=== PATIENT | female | born 1955 | race Caucasian/White ===

== ENCOUNTER → 2017-04-24 | Outpatient (CLI) | payer MEDICARE, OTHER ==
--- NOTE | 2017-04-25 12:14 | MR ---
EXAMINATION TYPE: MR lumbar spine wo con DATE OF EXAM: 04/24/2017 COMPARISON: 06/09/2011 HISTORY: Cervicalgia, Lumbago TECHNIQUE: T1 and T2 axial and sagittal images of the lumbar spine are submitted. FINDINGS: There is no abnormal signal seen within the visualized spinal cord or paraspinal soft tissu es. At L1-2 there is large vertebral body hemangioma of L2. There is mild central disc bulging with no ca nal stenosis or foraminal encroachment. At L2-3 there is mild degenerative disc disease. There is hypertrophic change of the facets but no ca nal stenosis or foraminal encroachment. At L3-4 there is mild hypertrophic change of the facets. No disc herniation, canal stenosis or forami nal encroachment. At L4-5 there is mild facet arthropathy. No disc herniation or canal stenosis. No foraminal encroachm ent. At L5-S1 there is degenerative disc disease with minimal central disc bulging but no foraminal encroa chment or canal stenosis. Mild facet arthropathy. IMPRESSION: 1. Multilevel mild degenerative disc disease and facet arthropathy with no disc herniation, canal xiao nosis, or foraminal encroachment. 2. Cholelithiasis 3. Heterogeneous marrow signal is nonspecific likely the basis of marrow distribution or osteopenia. Lymphoproliferative disorder or blood dyscrasia less likely. EXAMINATION TYPE: MR cervical spine wo con DATE OF EXAM: 04/24/2017 COMPARISON: 01/25/2014 HISTORY: Cervicalgia, Lumbago TECHNIQUE: T1 sagittal and coronal, T2 sagittal, and gradient echo axial views of the cervical spine are submitted. FINDINGS: The cranial cervical junction is preserved. There is no abnormal signal seen within the sp inal cord or paraspinal soft tissues. At C2-3 there is no disc herniation or canal stenosis. No foraminal encroachment. Mild uncovertebral joint hypertrophy. At C3-4 there is no disc herniation or canal stenosis. No foraminal encroachment. At C4-5 there is mild degenerative disc disease and facet arthropathy. No disc herniation or canal st enosis. No foraminal encroachment. At C5-6 there is mild facet arthropathy and degenerative disc disease. No Canal stenosis, disc hernia tion or foraminal encroachment. At C6-7 there is no disc herniation or canal stenosis. No foraminal encroachment. At C7-T1 there is no disc herniation or canal stenosis. No foraminal encroachment. IMPRESSION: 1. Multilevel mild degenerative disc disease. 2. Abnormal signal involving the rebecca and basilar artery likely related to patient's history of previ ous surgery with clips. Correlate for aneurysm, aneurysm clipping or possible cavernous angioma. Find ing is stable and has been seen on previous exams.
== END | disposition home or self-care (01) ==
LOC: RADMRIMAIN 10:04
PROVIDERS: ATTEND Psychiatry & Neurology Neurology
DX: M51.36 Other intervertebral disc degeneration, lumbar region (principal); M50.321 Other cervical disc degeneration at C4-C5 level; M46.06 Spinal enthesopathy, lumbar region; Z98.890 Other specified postprocedural states; Z88.0 Allergy status to penicillin
CPT/HCPCS: 72141; 72148

== ENCOUNTER 2017-05-06 10:55 | Inpatient (IN) | payer MEDICARE, OTHER ==
[2017-05-06] MEDS ORDERED: MIDAZOLAM 2 MG/2 ML VIAL ONE ×2 (15:32→17:06)
[2017-05-06] MEDS: MIDAZOLAM 2 MG/2 ML VIAL IVP ONE ×3 (15:33→17:15)
[2017-05-06] MEDS ORDERED: LIDOCAINE 2% INJ 20 MG/ML SQ ONE (15:35)
[2017-05-06] MEDS ORDERED: MIDAZOLAM 2 MG/2 ML VIAL IVP ONE ×2 (15:35→17:10)
[2017-05-06] MEDS ORDERED: SODIUM CHLORIDE 0.9% 1,000 ML IV ONE (15:36)
[2017-05-06] MEDS ORDERED: FUROSEMIDE 10 MG/ML 4 ML VIAL ONE ×2 (16:24→16:51)
[2017-05-06] MEDS ORDERED: FUROSEMIDE 10 MG/ML 4 ML VIAL IVP ONE (16:30)
--- NOTE | 2017-05-06 16:46 | CONS ---
DATE OF CONSULTATION: This is a 61-year-old lady who was transferred emergently from the emergency room at [facility], where she presented with chest pain. She has been having chest discomfort from this morning and also had some shortness of breath. There is mild troponin elevation and anterior T-wave inversions and very subtle ST-segment elevation in V2, V3. Due to this, she was advised to undergo emergent angiography. Patient has been explained the risks, benefits and alternative. She is under a lot of stress. She lost her son 2 days ago with an overdose. She has history of cerebral aneurysms and has been stented. Also has history of hypertension and dyslipidemia. Medications are as charted. FAMILY HISTORY: Negative for premature coronary artery disease. SOCIAL HISTORY: Significant for smoking. Denies drug abuse or ETOH abuse. REVIEW OF SYSTEMS: HEENT: Unremarkable. CARDIAC: As described above. RESPIRATORY: Negative. GI: Negative. GENITOURINARY: Negative. ALLERGY/IMMUNOLOGY: Negative. SKIN: Negative. MUSCULOSKELETAL: Negative. ENDOCRINE: Negative. HEMATOLOGICAL: Negative. DERMATOLOGICAL: Negative. CONSTITUTIONAL: Negative. Rest of the system review is not relevant. On exam, she is comfortable at rest. Vital signs are stable. There is no jugular venous distention. Chest exam reveals good air entry bilaterally. Heart exam reveals first and second heart sounds. No gallop. Abdomen is soft. Examination of extremities did not reveal edema. Peripheral pulses are felt. Her creatinine is normal. Hemoglobin is normal. ASSESSMENT: Acute coronary syndrome. PLAN: Patient will undergo emergent cardiac catheterization.
--- NOTE | 2017-05-06 16:50 | CC ---
DATE OF SERVICE: INDICATION: Anterior wall myocardial infarction. PROCEDURE: After obtaining informed consent, left heart catheterization and coronary angiogram were performed via the right femoral artery using standard Myranda catheters. Patient tolerated the procedure well without any obvious immediate complications. A femoral angiogram was performed at the end of the procedure. Patient underwent moderate conscious sedation. Total sedation time was 15 minutes. FINDINGS HEMODYNAMICS: Left ventricular end-diastolic pressure was 72 mm. There is no significant gradient across the aortic valve. LEFT VENTRICULOGRAM: Left ventriculogram was not performed. ANGIOGRAPHIC DATA Left main coronary artery. Left main coronary artery is a normal-sized vessel and is free of stenosis. It divides into left anterior descending coronary artery and circumflex coronary artery. LAD has a [id number] lesion in the proximal part. In some views it appears more significant in others. Diagonal branch is free of significant stenosis. Circumflex coronary artery and its branches are free of significant disease. Right coronary artery is a large codominant system that shows mild atherosclerotic plaque in its mid portion. CONCLUSIONS: 1. Significant stenosis in the proximal left anterior descending artery. 2. Mild disease involving right coronary artery. PLAN: I am going to have Dr. Chavira, the on-call librarian school, review the angiographic data. If he thinks that the LAD lesion is significant, we will proceed with angioplasty. If not, I am going to obtain a D-dimer and if necessary a CT scan to rule out pulmonary embolism.
[2017-05-06] MEDS ORDERED: BIVALIRUDIN 250 MG in SODIUM CHLORIDE 0.9% 50 ML IV ONE (16:53)
[2017-05-06] MEDS ORDERED: FUROSEMIDE 10 MG/ML 4 ML VIAL IV ONE ×2 (16:53→20:00)
[2017-05-06] MEDS ORDERED: BIVALIRUDIN BOLUS 250 MG/50 ML IV ONE (16:53)
[2017-05-06] MEDS ORDERED: NITROGLYCERIN 1000MCG/10ML SYRINGE INTRACORON ONE (16:54)
[2017-05-06] MEDS ORDERED: ETOMIDATE 2 MG/ML 10 ML VIAL ONE (17:05)
[2017-05-06] MEDS ORDERED: ROCURONIUM BROMIDE 10 MG/ML 10 ML VIAL IV ONE (17:05)
[2017-05-06] MEDS ORDERED: SUCCINYLCHOLINE CHLORIDE 100 MG/5 ML SYR IV ONE (17:05)
[2017-05-06] MEDS ORDERED: CLOPIDOGREL 75 MG TAB ONE (17:25)
[2017-05-06] MEDS ORDERED: NITROGLYCERIN-D5W PMX 50 MG in DEXTROSE/WATER 1 250ML.BAG IV ONE (17:35)
[2017-05-06] MEDS ORDERED: ATROPINE SULFATE 0.1 MG/ML 10ML SYRINGE IV PRN (17:38)
[2017-05-06] MEDS ORDERED: MAG HYDROX/AL HYDROX/SIMETH 30 ML CUP PO PRN (17:38)
[2017-05-06] MEDS ORDERED: NITROGLYCERIN SL TABS 0.4 MG TAB SUBLINGUAL PRN (17:38)
[2017-05-06] MEDS ORDERED: RX INFO: IV CONTRAST WAS GIVEN 1 EACH MISC MISCELLANE PRN (17:38)
[2017-05-06 17:39] LABS: ABG HCO3 20 mmol/L (21-25); ABG Oxygen Saturation 81.4 % (94-97); ABG PCO2 49 mmHg (35-45); ABG PH 7.22 (7.35-7.45); ABG PO2 49 mmHg (83-108)
[2017-05-06] MEDS ORDERED: CLOPIDOGREL 75 MG TAB PO ONE (17:42)
[2017-05-06] MEDS ORDERED: IOHEXOL 350 MG/ML 125ML BOTTLE INJ ONE (18:00)
[2017-05-06] MEDS ORDERED: PROPOFOL 50 ML IV ONE (18:07)
[2017-05-06 18:13] LABS: Glucose,Whole Blood 187 mg/dL (75-99)
[2017-05-06] MEDS ORDERED: NALOXONE 0.4 MG/ML 1 ML VIAL IV PRN (18:27)
--- NOTE | 2017-05-06 19:00 | XR ---
EXAMINATION TYPE: XR chest 1V portable DATE OF EXAM: 05/06/2017 COMPARISON: NONE HISTORY: Tube placement TECHNIQUE: Single frontal view of the chest is obtained. FINDINGS: Endotracheal tube is low and 1 cm from the tresa. There is extensive pulmonary edema. The re is a nasogastric tube that appears in good position. There are chest leads. There is a right pleur al effusion. IMPRESSION: Severe pulmonary edema. Endotracheal tube is too low and should be pulled back 3 cm. Rig ht pleural effusion.
[2017-05-06] MEDS: SODIUM CHLORIDE 0.9% 1,000 ML IV SCH (19:01)
[2017-05-06] MEDS: PANTOPRAZOLE 40 MG/10 ML VIAL IVP SCH (19:03)
[2017-05-06] MEDS: FUROSEMIDE 10 MG/ML 4 ML VIAL IV SCH (19:06)
[2017-05-06 20:35] LABS: ABG Base Excess -4.2 mmol/L; ABG HCO3 21 mmol/L (21-25); ABG PCO2 42 mmHg (35-45); ABG PH 7.32 (7.35-7.45); ABG PO2 82 mmHg (83-108); ABG TCO2 22 mmol/L (19-24)
[2017-05-06] MEDS ORDERED: NOREPINEPHRIN 4 MG-0.9% NS PMX 4 MG/250 ML ML IV SCH (21:30)
[2017-05-06] MEDS: PROPOFOL 500 MG in EMPTY BAG 1 BAG IV SCH (21:51)
[2017-05-06] MEDS: METOPROLOL TARTRATE 25 MG TAB PO SCH (21:54)
[2017-05-06] MEDS: ATORVASTATIN 80 MG TAB PO SCH (21:54)
[2017-05-06 22:29] LABS: Appearance,Urine Clear (Clear); Bilirubin,Urine Negative (Negative); Glucose,Urine (UA) Negative (Negative); Ketones,Urine Negative (Negative); Leukocyte Esterase,Urine Negative (Negative); Nitrite,Urine Negative (Negative); Particle Count 448; Protein,Urine Negative (Negative); RBC,Urine 13 /hpf (0-5); Specific Gravity,Urine 1.007 (1.001-1.035); UA Billing (MACRO vs. MICRO) MICRO; Urobilinogen,Urine <2.0 mg/dL (<2.0); WBC,Urine <1 /hpf (0-5)
[2017-05-06] MEDS: CHLORHEXIDINE GLUCONATE 15 ML CUP MUCOUS MEM SCH (23:29)
[2017-05-06 23:35] LABS: Anion Gap 14 mmol/L; Blood Urea Nitrogen 10 mg/dL (7-17); Calcium 8.2 mg/dL (8.4-10.2); Carbon Dioxide 18 mmol/L (22-30); Chloride 110 mmol/L (98-107); Glucose 116 mg/dL (74-99); Non-African American GFR(MDRD) >60 (>60 ml/min/1.73 sqM); Sodium 142 mmol/L (137-145)
[2017-05-07] MEDS: HEPARIN SODIUM,PORCINE 5,000 UNIT/ML 1 ML VIAL SQ SCH ×3 (00:51→16:43)
[2017-05-07] MEDS: PROPOFOL 500 MG in EMPTY BAG 1 BAG IV SCH ×5 (02:36→22:56)
[2017-05-07 03:51] LABS: CH 31.7; CHCM 32.6; HCT 41.8 % (34.0-46.0); HDW 2.14; MCH 32.7 pg (25.0-35.0); MCHC 33.5 g/dL (31.0-37.0); MCV 97.7 fL (80.0-100.0); Mean Platelet Volume 8.2; RBC 4.28 m/uL (3.80-5.40); RDW 14.2 % (11.5-15.5); WBC (Perox) 27.43
[2017-05-07 04:03] LABS: WBC 27.7 k/uL (3.8-10.6)
[2017-05-07 04:06] LABS: ALT 55 U/L (9-52); AST 43 U/L (14-36); Alkaline Phosphatase 73 U/L (38-126); Anion Gap 11 mmol/L; Blood Urea Nitrogen 10 mg/dL (7-17); Calcium 7.8 mg/dL (8.4-10.2); Carbon Dioxide 20 mmol/L (22-30); Chloride 111 mmol/L (98-107); Glucose 98 mg/dL (74-99); Magnesium 1.5 mg/dL (1.6-2.3); Non-African American GFR(MDRD) >60 (>60 ml/min/1.73 sqM); Phosphorous 4.1 mg/dL (2.5-4.5); Potassium 3.7 mmol/L (3.5-5.1); Sodium 142 mmol/L (137-145); Total Bilirubin 0.7 mg/dL (0.2-1.3); Total Protein 5.3 g/dL (6.3-8.2)
[2017-05-07 04:27] LABS: Add Differential Manual Differential
[2017-05-07 04:28] LABS: Manual Review Performed; Nucleated Red Blood Cells 0 /100 WBC (0-0); Total Cells Counted 100
[2017-05-07] MEDS ORDERED: Potassium Replacement Protocol 1 EACH MISC MISCELLANE PRN (04:28)
[2017-05-07] MEDS ORDERED: Magnesium Replacement Protocol 1 EACH MISC MISCELLANE PRN (04:30)
[2017-05-07] MEDS ORDERED: POTASSIUM CHLORIDE ORAL LIQUID 40 MEQ/30 ML CUP NG-TUBE SCH (05:00)
[2017-05-07] MEDS: MAGNESIUM SULFATE-D5W PMX 1 GM in DEXTROSE/WATER 1 100ML.BAG IVPB SCH ×2 (05:00→06:48)
[2017-05-07] MEDS ORDERED: SODIUM CHLORIDE 0.9% 500 ML IV ONE (06:32)
--- NOTE | 2017-05-07 07:06 | XR ---
EXAMINATION TYPE: XR chest 1V portable DATE OF EXAM: 05/07/2017 HISTORY: Tube placement. REFERENCE: Previous study dated 05/06/2017. FINDINGS: Endotracheal tube remains low with its tip only 1.6 cm from the tresa. An NG tube is prese nt and its tip crosses the hemidiaphragm but is not visualized. There is been marked improvement in the appearance of the chest. Some residual airspace disease persi sts. The heart is not enlarged. No definite pleural fluid is seen. IMPRESSION: 1. LOW-LYING ET TUBE. 2. IMPROVING CHANGES OF HEART FAILURE.
[2017-05-07] MEDS: PIPERACILLIN-TAZOBACTAM 3.375 GM in DEXTROSE/WATER 1 50ML.BAG IVPB SCH ×2 (08:36→16:44)
[2017-05-07] MEDS: PANTOPRAZOLE 40 MG/10 ML VIAL IVP SCH (08:43)
[2017-05-07] MEDS: CHLORHEXIDINE GLUCONATE 15 ML CUP MUCOUS MEM SCH ×2 (08:43→20:39)
[2017-05-07] MEDS: FUROSEMIDE 10 MG/ML 4 ML VIAL IV SCH ×2 (08:44→20:39)
[2017-05-07] MEDS: ASPIRIN 81 MG CHEW PO SCH (08:44)
[2017-05-07] MEDS: SODIUM CHLORIDE 0.9% 1,000 ML IV SCH ×2 (08:44→20:39)
[2017-05-07] MEDS: CLOPIDOGREL 75 MG TAB PO SCH (08:44)
[2017-05-07] MEDS: METOPROLOL TARTRATE 25 MG TAB PO SCH ×2 (08:44→20:39)
[2017-05-07] MEDS: SPIRONOLACTONE 25 MG TAB PO SCH (08:44)
[2017-05-07] MEDS ORDERED: LORazepam 2 MG/ML SYRINGE IV PRN (09:10)
[2017-05-07] MEDS ORDERED: CISATRACURIUM 2 MG/ML 5 ML VIAL IV ONE (09:11)
--- NOTE | 2017-05-07 10:32 | XR ---
EXAMINATION TYPE: XR chest 1V portable DATE OF EXAM: 05/07/2017 CLINICAL HISTORY: Difficulty breathing progress study. Opelika Tyrone placement. TECHNIQUE: Single AP portable upright view of the chest is obtained. COMPARISON: Chest x-ray from earlier today. FINDINGS: There is new right internal jugular [place]-Tyrone catheter with tip likely extending into righ t pulmonary artery felt satisfactory in position. An endotracheal tube and orogastric tube are stable in position. Cardiac silhouette size is stable an d within normal limits. Reticular interstitial changes bilaterally may reflect mild edema. No large p leural effusion or pneumothorax is seen bilaterally. Osseous structures are demineralized. IMPRESSION: 1. New [place]-Tyrone catheter felt satisfactory in position. 2. Stable mild interstitial edema.
[2017-05-07 10:48] LABS: ABG PCO2 35 mmHg (35-45); ABG PH 7.44 (7.35-7.45)
[2017-05-07 10:49] LABS: ABG Base Excess -0.9 mmol/L; ABG HCO3 23 mmol/L (21-25); ABG PO2 319 mmHg (83-108); ABG TCO2 24 mmol/L (19-24)
[2017-05-07] MEDS ORDERED: SODIUM CHLORIDE 0.9% 1,000 ML IV SCH (11:00)
--- NOTE | 2017-05-07 11:07 | P.HPIM ---
History of Present Illness H&P Date: 05/07/17 Chief Complaint: Chest pain This is a 61-year-old female, patient of Dr. Davalos. She has a known past medical history of cerebral aneurysm with stent placement, hypertension, hyperlipidemia and nicotine dependence. Patient initially presented to the emergency room at [facility] with complaints of chest pain. Please note that the information has been taken from patient's chart. She is currently intubated and sedated in the ICU. Per cardiology note patient presented with chest pain and shortness of breath. There is mild elevation in her troponin and evidence of EKG changes. The reports anterior T-wave inversions and subtle ST segment elevation in V2 and V3. Therefore she was transferred to [facility] to undergo heart catheterization with stent placement. Heart catheterization was completed yesterday with evidence of stenosis in the proximal LAD patient underwent stent placement to this area. During that time patient developed pulmonary edema required briefly on IV Lasix and intubated and is currently in the ICU. Dr. Carranza is following for critical care management. She is requiring vasopressors. She is currently on Levophed at 10 mics and diprovan at 50 mics. There are concerns about possible takotsubo syndrome. Patient lost her son about 2 days ago due to drug overdose. scheduled on Wednesday. Review of Systems Unable to obtain review of systems due to patient being intubated and sedated Past Medical History Past Medical History: Hyperlipidemia Additional Past Medical History / Comment(s): Hypertension, cerebral aneurysm with stent, nicotine dependence Medications and Allergies Allergies Allergy/AdvReac Type Severity Reaction Status Date / Time No Known Allergies Allergy Verified 05/06/17 15:35 Physical Exam Vitals: Vital Signs Temp Pulse Pulse Resp BP BP Pulse Ox 05/07/17 08:00 98.4 F 88 17 113/47 100 05/07/17 07:00 91 18 119/52 100 05/07/17 06:00 97 20 124/50 100 05/07/17 05:00 95 23 111/48 100 05/07/17 04:00 87 18 108/49 100 05/07/17 03:00 90 21 100/52 100 05/07/17 02:00 86 24 81/55 99 05/07/17 01:00 87 22 98/53 100 05/07/17 00:00 93 25 H 82/54 100 05/06/17 23:05 96 24 91/55 99 05/06/17 23:00 97 24 91/55 98 05/06/17 22:20 106 H 31 H 110/64 97 05/06/17 22:10 100 23 110/57 98 05/06/17 22:00 100 24 100/51 98 05/06/17 21:50 101 H 25 H 89/55 98 05/06/17 21:40 110 H 32 H 106/74 98 05/06/17 21:30 104 H 24 83/45 97 05/06/17 21:23 98.9 F 97/56 05/06/17 21:20 105 H 27 H 92/66 96 05/06/17 21:10 108 H 28 H 92/66 97 05/06/17 21:00 107 H 23 84/57 97 05/06/17 20:50 105 H 22 82/55 97 05/06/17 20:40 108 H 24 82/55 95 05/06/17 20:30 112 H 30 H 94/61 94 L 05/06/17 20:23 99.1 F 100 26 H 91/55 05/06/17 20:20 109 H 24 107/60 94 L 05/06/17 20:10 109 H 25 H 116/61 94 L 05/06/17 20:00 99.6 F 110 H 28 H 111/66 92 L 05/06/17 19:50 118 H 30 H 106/67 90 L 05/06/17 19:40 113 H 25 H 83/59 92 L 05/06/17 19:30 110 H 27 H 71/52 91 L 05/06/17 19:23 99.6 F 110 H 25 H 05/06/17 19:20 109 H 22 76/47 88 L 05/06/17 19:10 114 H 24 76/47 83 L 05/06/17 19:00 112 H 21 80/53 85 L 05/06/17 18:50 114 H 21 119/72 84 L 05/06/17 18:40 113 H 21 119/72 88 L 05/06/17 18:30 119 H 27 H 151/67 89 L 05/06/17 18:27 22 05/06/17 18:20 124 H 13 178/79 88 L 05/06/17 18:10 130 H 22 178/79 91 L 05/06/17 18:03 98.3 F 124 H Intake and Output 05/06/17 05/07/17 05/07/17 22:59 06:59 14:59 Intake Total 864.866 630.312 675.0 Output Total 2014 770 595 Balance -1150.134 -139.688 80.0 Intake: IV 863.79 500 650 Sodium Chloride 0.9% 1, 195 500 650 000 ml @ 75 mls/hr IV . [id number] JACKIE Rx#:[id number] Intake, IV Titration 1.076 130.312 25.0 Amount Norepinephrin 4 mg-0.9% 32.000 Ns Pmx 4 mg In 250 ml @ Titrate IV .Q0M JACKIE Rx#: [id number] Piperacillin-Tazobactam 3 25.0 .375 gm In Dextrose/Water 1 50ml.bag @ 12.5 mls/hr IVPB Q8HR JACKIE Rx#: [id number] Propofol 500 mg In Empty 1.076 98.312 Bag 1 bag @ Titrate IV . Q0M JACKIE Rx#:[id number] Output: Gastric Drainage 150 Urine 1865 770 170 Oral Regurgitation 425 Other: Weight 47.837 kg 50.2 kg Head normocephalic Neck supple Lungs clear to auscultation bilaterally no wheezing or crackles Heart regular rate and rhythm S1-S2, no rub or gallop Abdomen is soft nontender nondistended positive bowel sounds no hepatosplenomegaly Extremities no edema Neuro patient is intubated and sedated Results CBC & Chem 7: 05/07/17 03:38 05/07/17 03:38 Labs: Abnormal Lab Results - Last 24 Hours (Table) 05/06/17 05/06/17 05/06/17 Range/Units 15:50 17:32 18:10 WBC (3.8-10.6) k/uL Neutrophils # (Manual) (1.3-7.7) k/uL Monocytes # (Manual) (0-1.0) k/uL D-Dimer 0.65 H (<0.60) mg/L FEU ABG pH 7.22 L (7.35-7.45) ABG pCO2 49 H (35-45) mmHg ABG pO2 49 L (83-108) mmHg ABG HCO3 20 L (21-25) mmol/L ABG O2 Saturation 81.4 L (94-97) % Chloride (98-107) mmol/L Carbon Dioxide (22-30) mmol/L Glucose (74-99) mg/dL POC Glucose (mg/dL) 187 H (75-99) mg/dL Calcium (8.4-10.2) mg/dL Magnesium (1.6-2.3) mg/dL AST (14-36) U/L ALT (9-52) U/L Troponin I (0.000-0.034) ng/mL Total Protein (6.3-8.2) g/dL Albumin (3.5-5.0) g/dL Urine Blood (Negative) Urine RBC (0-5) /hpf Hyaline Casts (0-2) /lpf 05/06/17 05/06/17 05/06/17 Range/Units 18:59 20:34 22:15 WBC (3.8-10.6) k/uL Neutrophils # (Manual) (1.3-7.7) k/uL Monocytes # (Manual) (0-1.0) k/uL D-Dimer (<0.60) mg/L FEU ABG pH 7.32 L (7.35-7.45) ABG pCO2 (35-45) mmHg ABG pO2 82 L (83-108) mmHg ABG HCO3 (21-25) mmol/L ABG O2 Saturation (94-97) % Chloride (98-107) mmol/L Carbon Dioxide (22-30) mmol/L Glucose (74-99) mg/dL POC Glucose (mg/dL) (75-99) mg/dL Calcium (8.4-10.2) mg/dL Magnesium (1.6-2.3) mg/dL AST (14-36) U/L ALT (9-52) U/L Troponin I 0.303 H* (0.000-0.034) ng/mL Total Protein (6.3-8.2) g/dL Albumin (3.5-5.0) g/dL Urine Blood Small H (Negative) Urine RBC 13 H (0-5) /hpf Hyaline Casts 6 H (0-2) /lpf 05/06/17 05/07/17 05/07/17 Range/Units 23:13 01:04 03:38 WBC (3.8-10.6) k/uL Neutrophils # (Manual) (1.3-7.7) k/uL Monocytes # (Manual) (0-1.0) k/uL D-Dimer (<0.60) mg/L FEU ABG pH (7.35-7.45) ABG pCO2 (35-45) mmHg ABG pO2 (83-108) mmHg ABG HCO3 (21-25) mmol/L ABG O2 Saturation (94-97) % Chloride 110 H 111 H (98-107) mmol/L Carbon Dioxide 18 L 20 L (22-30) mmol/L Glucose 116 H (74-99) mg/dL POC Glucose (mg/dL) (75-99) mg/dL Calcium 8.2 L 7.8 L (8.4-10.2) mg/dL Magnesium 1.5 L (1.6-2.3) mg/dL AST 43 H (14-36) U/L ALT 55 H (9-52) U/L Troponin I 0.527 H* (0.000-0.034) ng/mL Total Protein 5.3 L (6.3-8.2) g/dL Albumin 3.0 L (3.5-5.0) g/dL Urine Blood (Negative) Urine RBC (0-5) /hpf Hyaline Casts (0-2) /lpf 05/07/17 05/07/17 05/07/17 Range/Units 03:38 06:23 10:40 WBC 27.7 H* (3.8-10.6) k/uL Neutrophils # (Manual) 21.3 H (1.3-7.7) k/uL Monocytes # (Manual) 1.9 H (0-1.0) k/uL D-Dimer (<0.60) mg/L FEU ABG pH (7.35-7.45) ABG pCO2 (35-45) mmHg ABG pO2 319 H (83-108) mmHg ABG HCO3 (21-25) mmol/L ABG O2 Saturation 100.0 H (94-97) % Chloride (98-107) mmol/L Carbon Dioxide (22-30) mmol/L Glucose (74-99) mg/dL POC Glucose (mg/dL) (75-99) mg/dL Calcium (8.4-10.2) mg/dL Magnesium (1.6-2.3) mg/dL AST (14-36) U/L ALT (9-52) U/L Troponin I 0.322 H* (0.000-0.034) ng/mL Total Protein (6.3-8.2) g/dL Albumin (3.5-5.0) g/dL Urine Blood (Negative) Urine RBC (0-5) /hpf Hyaline Casts (0-2) /lpf Microbiology - Last 24 Hours (Table) 05/06/17 18:30 Gram Stain - Preliminary Sputum Sputum Culture - Preliminary Assessment and Plan Plan: 1. Chest pain with possible acute ST elevated myocardial infarction or Takotsubo syndrome: Patient underwent heart catheterization requiring stent to the LAD. Continue Plavix, aspirin, Lipitor, metoprolol. Cardiology following closely 2. Acute respiratory failure secondary to pulmonary edema requiring mechanical intubation: Pulmonary service following 3. Acute pulmonary edema: Chest x-rays are showing improvement after receiving IV Lasix. Continue to monitor. Currently on IV Lasix 40 every 12 hours 4. Hypomagnesemia patient is receiving magnesium supplement 5. Leukocytosis we'll monitor. Patient is currently on IV Zosyn 6. Essential hypertension 7. Nicotine dependence 8. Hyperlipidemia 9. History of cerebral aneurysm with stent placement 10. Hypotension currently requiring 10 mics of Levophed DVT prophylaxis subcu heparin Time with Patient: Greater than 30 (Greater than 50% of the total time spent in counseling and coordination of care.I performed an examination of the patient and discussed their management with the physician Aids Social Worker. I have reviewed the Physician Aids Social Worker's notes and agree with the documented findings and plan of care)
--- NOTE | 2017-05-07 11:32 | ECHOF ---
Referral Reason:mi MEASUREMENTS -------- HEIGHT: 165.1 cm WEIGHT: 47.6 kg BP: 124/50 IVSd: 1.0 cm (0.6 - 1.1) LVIDd: 4.3 cm (3.9 - 5.3) LVPWd: 1.2 cm (0.6 - 1.1) IVSs: 1.3 cm LVIDs: 2.9 cm LVPWs: 1.3 cm LA Diam: 3.4 cm (2.7 - 3.8) MV EXCURSION: 13.572 mm (> 18.000) MV EF SLOPE: 51 mm/s (70 - 150) EPSS: 1.1 cm MV E Donny: 1.05 m/s MV DecT: 264 ms MV A Donny: 1.16 m/s MV E/A Ratio: 0.91 RAP: 5.00 mmHg RVSP: 25.06 mmHg FINDINGS -------- Sinus rhythm. This was a technically adequate study. Left ventricular wall thickness is normal. Overall left ventricular systolic function is severely impaired with, an EF < 20%. Mid anterior LV wall motion is akinetic. Apical anterior LV wall motion is akinetic. Apical inferior LV wall motion is akinetic. The right ventricle is normal in size. The left atrial size is normal. The right atrial size is normal. There is mild aortic valve sclerosis. There is no evidence of aortic regurgitation. Mild mitral annular calcification present. Mild mitral regurgitation is present. Mild tricuspid regurgitation present. There is no evidence of pulmonary hypertension. The right ventricular systolic pressure, as measured by Doppler, is 25.06mmHg. There is no pulmonic regurgitation present. The aortic root size is normal. There is no pericardial effusion. CONCLUSIONS -------- 1. Left ventricular wall thickness is normal. 2. There is no evidence of pulmonary hypertension. 3. The right ventricular systolic pressure, as measured by Doppler, is 25.06mmHg. 4. The aortic root size is normal. 5. Overall left ventricular systolic function is severely impaired with, an EF < 20%. 6. Mid anterior LV wall motion is akinetic. 7. Apical anterior LV wall motion is akinetic. 8. Apical inferior LV wall motion is akinetic. 9. There is mild aortic valve sclerosis. 10. Mild mitral annular calcification present. 11. Mild mitral regurgitation is present. 12. Mild tricuspid regurgitation present. SECOND FLOOR OPERATOR: Brooklynn Celaya RDCS
[2017-05-07 12:04] LABS: Glucose,Whole Blood 118 mg/dL (75-99)
--- NOTE | 2017-05-07 12:06 | PN ---
Amy is a 61-year-old lady who was admitted to hospital yesterday with chest pain. EKG changes and initially we thought she was having an acute myocardial infarction, took her for emergent cardiac catheterization. She underwent cardiac catheterization and angioplasty of proximal LAD. Prior to angioplasty she developed respiratory distress and had to be intubated. Her troponin only went up to 0.6 so she did not quite behave like an acute ST segment elevation NE. However, her echocardiogram shows severe LV systolic dysfunction and the wall motion abnormality involves the apex. The extensive wall motion abnormality with mild elevation in troponin are consistent with Takotsubo syndrome, but it is also possible she had plaque rupture and then developed LV dysfunction and it is going to improve. This morning she is awake, still intubated. Her white cell count is elevated, 0.3 is her troponin. Labs show a creatinine of 0.7. On exam, comfortable at rest. Vital signs are stable. Chest exam reveals diminished air entry at the bases. Heart exam reveals first and second heart sounds, a systolic murmur in the left lower sternal border. Abdomen is soft. Exam of the extremities did not reveal edema. Peripheral pulses are felt. ASSESSMENT: 1. Acute pulmonary edema. 2. Cardiomyopathy with severe left ventricular dysfunction secondary to either a non-ST segment elevation myocardial infarction or due to Takotsubo syndrome. 3. Coronary artery disease, status post angioplasty. PLAN: Will continue with the supportive care including aspirin, Lipitor, Plavix, IV Lasix 40 mg q.12. Continue the metoprolol at 25 b.i.d. I hope that we can extubate her soon. In the long run, I anticipate her to have good improvement in her LV function.
[2017-05-07] MEDS: NOREPINEPHRIN 16 MG-0.9%NS PMX 16 MG/250 ML ML IV SCH (12:31)
[2017-05-07 12:37] LABS: ABG Base Excess -1.2 mmol/L; ABG HCO3 22 mmol/L (21-25); ABG PCO2 28 mmHg (35-45); ABG PO2 53 mmHg (83-108); ABG TCO2 23 mmol/L (19-24)
[2017-05-07] MEDS: POTASSIUM CHLORIDE ORAL LIQUID 40 MEQ/30 ML CUP NG-TUBE SCH ×2 (13:47→15:11)
[2017-05-07] MEDS: LORazepam 2 MG/ML SYRINGE IV PRN ×2 (14:56→18:35)
--- NOTE | 2017-05-07 14:57 | CDI ---
In responding to this query, please exercise your independent professional judgment. The [facility] Coding Staff and Clinical Documentation Specialists appreciate your assistance in clarifying documentation, maintaining compliance with coding guidelines, accurately documenting patients condition and capturing severity of illness. The fact that a question is asked does not imply that any particular answer is desired or expected. Communication forms are a method of clarifying documentation and are not made part of the Legal Health Record. Thank you in advance for your clarification. Last Revision, January 2016 [facility] [address] [place] [address] Documentation Clarification Form Date: 05/07/2017 2:45:00 PM Updated 05/10/2017 From: Lindsay Mariano, CCS, CCDS Admit Date: 05/06/2017 3:41:00 PM Patient Name: Amy Thomas Visit Number: [id number] Discharge Date: Dr. Pamela Mcfadden: Transfer from [facility] to [facility] to undergo heart catheterization with stent placement. Heart catheterization was completed yesterday with evidence of stenosis in the proximal LAD patient underwent stent placement to this area. During that time patient developed pulmonary edema required briefly to be on IV Lasix and intubated and is currently in the ICU, intubated for acute respiratory failure. She is requiring vasopressors on Levophed. Patient history/risk factors: Hypertension, Cerebral aneurysm w/stent, nicotine dependence. Clinical Indicators: Admitted with possible STEMI or Takotsubo Syndrome ( patient's son recently from drug overdose. Vitals: P 124, R 22, BP 178/79 - 76/47, PO 91 mechanical vent. Treatment: as above. IV Mag Sulfate, IV fluid boluses, IV Ativan, IV Nimbex, IV Norepinephrine Consults: Cardiology, Pulmonary/Critical Care In your professional opinion, can you please specify the type of shock if known ? Cardiogenic Shock o Cause Hypovolemic Shock o Cause Other, please specify Unable to determine Please document in your progress notes and discharge summary in order to capture severity of illness and risk of mortality. Include clinical findings that support your diagnosis. FYI: Press F11 to launch patient chart. Place X here if this finding has no clinical significance, is not applicable or if you are not able to provide any additional documentation. Thank You. JOSE
--- NOTE | 2017-05-07 15:22 | PTCA ---
DATE OF SERVICE: Mrs. Thomas is a 61-year-old female with known history of chronic tobacco use, history of cerebrovascular accident, history of peripheral vascular disease, and hypertension as well as hyperlipidemia, who presented to [facility] with symptoms of chest discomfort. She had EKG changes with T-wave inversion on the lateral leads with ST segment changes with minimal troponin elevation. She underwent cardiac catheterization by Dr. Preciado, was found to have a LUCINDA-3 flow in the LAD with a lesion in the proximal LAD at the bifurcation of diagonal branch of about 70%. Because of the location of the lesion and the appearance, recommendation made regarding fraction flow reserve measurement and if needed, angioplasty and stenting. Of note, that prior to the start of the intervention, patient was becoming more dyspneic with hypoxemia. She received IV diuretics and her oxygen flow was increased. PROCEDURE: A 6 [place] FR4 guiding catheter introduced into the system after cannulating the left main. A Doppler flow wire was introduced into the LAD. The IFR was measured at 0.7. At that point, the patient was becoming more short of breath and hypoxic, decision was made to electively intubate her which was done by the Anesthesia Department. Following that, a 3.0 x 15 mm Xience Alpine stent was deployed, post dilated at 14 atmospheres. After the last inflation, after appropriate wait, the balloon and the guidewire were withdrawn back into the guiding catheter. Images were obtained and repeated. Those images reveal stable successful stenting. At that point, the guiding catheter, the balloon and the guidewire were removed. The sheath was removed. Hemostasis was obtained with appropriate Angio-Seal. There were no immediate complication. Patient is returned to her room. Her blood pressure and heart rate were stable. She was intubated. She was diuresing well and she was in sinus mechanism. She received Angiomax per protocol as well as oral loading dose of clopidogrel. RESULT: Successful stenting of the proximal left anterior descending that was a hemodynamically significant lesion was in an IFR 0.70 with reduction in stenosis from 70% to 0%. RECOMMENDATION: Patient will be continued on aspirin, Plavix, beta blockers, and statins. Echocardiogram with Doppler will be obtained to evaluate the ventricular systolic function. Those findings and recommendations were discussed with the family and they are in full understanding and agreement. Duration of this procedure is 36 minutes.
--- NOTE | 2017-05-07 15:24 | LTR ---
May 06, 2017 RE: WilliamAmy Dear Dr. Davalos; I had the pleasure to perform coronary angioplasty and stenting on Mrs. Thomas at [facility] on May 06, 2017 and a full copy of the procedure note will be forwarded to you. In brief, she presented with evidence of non-STEMI and congestive heart failure and pulmonary edema requiring mechanical ventilation. I am hopeful that this procedure will stabilize her status and depending on her progress, further recommendation will be made. Thank you again for allowing me to participate in this patient's care. Please feel free to call for any questions. Sincerely yours, JORDAN PETERSON MD
--- NOTE | 2017-05-07 16:56 | CONS ---
DATE OF CONSULTATION: 05/07/2017 Ms. Amy Thomas is a 61-year-old with extensive history of smoking and nicotine use. Patient has been brought into the hospital from [facility] related to acute onset of chest pain on date of admission with increasing shortness of breath. Patient had mildly elevated troponin with ST segment changes. The patient eventually brought into the parking lot laborer at [facility], where she ended up having cardiac cath and angiogram. She had an LAD lesion, where stents have been placed. Patient is being treated. Patient continued to have issues associated with low blood pressure, was very hypoxic, desaturating with frothy sputum coming out and eventually was intubated in the parking lot laborer and admitted to the ICU. Patient chest x-ray initially was consistent with acute pulmonary edema; however, heart size was normal. The patient responded well with Lasix with some clearing of the x-ray, but the patient not only spiked fever, white cell count went up to 25,000. Patient had very poor urine output overnight; in fact, requiring fluid resuscitation and crystalloid bolus. With that, blood pressure slightly improved. The patient is currently on 50 mcg of the Levophed drip 50 mcg of propofol, 10 mcg of Levophed drip. Does open eyes. Follows simple commands; somewhat anxious, though. Care plan discussed with the patient's son at length and also the cardiovascular services. Past medical history is significant for hypertension, hypertensive cardiovascular disease, dyslipidemia, history of stents, peripheral arterial disease, history of cerebral stents as well, history of cerebral aneurysm. FAMILY HISTORY AND SOCIAL HISTORY: The patient lately has been under stress. Son 3 days ago related to overdose. Smoking 1 pack per day. No history of other substance use. PAST SURGICAL HISTORY: As dictated above. ALLERGIES: No known drug allergy. Medications currently include: 1. Aspirin 81 mg daily. 2. Lipitor 80 mg daily. 3. Also on Peridex and 4. Plavix 75 mg daily. 5. Lasix 40 mg q.12. 6. Heparin 5000 units subcu q.8 hourly. 7. Also on Lopressor 25 b.i.d. 8. Patient has been on K-Mag-Phos replacement protocol. 9. Levophed, 10. Propofol as dictated above. 11. Due to spiking fever, patient just has been initiated on Zosyn as well, but pancultures are being obtained. On examination, blood pressure did drop down to 70/50, with fluid resuscitation and improved to 110/70. Arterial blood gas could not be on obtained. Her vent settings are reviewed, which include assist control mode. FiO2 is 100%. PEEP of 7.5, lowered down to 5. HEENT: Otherwise unremarkable. NECK: Supple. Neck veins are prominent, but no JVD is present. No bruits present. LUNGS: Bilateral coarse breath sounds with crackles at bases. HEART: Regular rate and rhythm. S1 and S2 audible. ABDOMEN: Soft. Hyperactive bowel sounds. No rebound or rigidity. EXTREMITIES: +1 peripheral pulses. NEUROLOGICAL: Otherwise, awake, opens eyes. Somewhat anxious. Moving all 4 extremities. The labs reviewed. White cell count is 27,000, hemoglobin and hematocrit 14 and 41, platelet count 229,000. Sodium 140, potassium 3.7. BUN and creatinine 10 and 0.7. Troponin is 0.5 to 7 and 0.322. Urinalysis unremarkable. A few hyaline casts, RBCs, WBCs are seen. IMPRESSION: 1. Coronary artery disease with stenosis of left anterior descending artery, status post stent placement. 2. Cardiomyopathy with severe hypertension, differential diagnosis acute myocardial infarction versus takotsubo syndrome. 3. Sepsis with leukocytosis, occult pneumonia, suspect component of pneumonia as well. 4. History of dyslipidemia. 5. Hypertension, hypertensive cardiovascular disease. PLAN AND RECOMMENDATIONS: Antibiotics have been initiated. Continue vent support, titrate oxygen down, vent adjustment. Will put an arterial line and [place]-Tyrone catheter, given the complexity of the case. Patient may very well require fluid resuscitation rather than diuresis. Care plan discussed with the cardiovascular services as well. The patient may need a relatively higher PEEP. Given the significant hypoxia and heart failure, as the patient has elevated LV EDP on cath, would recommend very cautious approach. Patient probably will benefit more from fluids rather than diuresis. We will do the electrolyte imbalance, supportive care. Will keep patient on respirator for another 24 to 48 hours now. Patient will probably require more sedation and transient paralytic agents, which she did require during the cath and intubation. CRITICAL CARE TIME SPENT: 60 minutes. Care plan discussed with the staff as well as the son.
[2017-05-07] MEDS ORDERED: ACETAMINOPHEN IV (For NPO) 1,000 MG in EMPTY BAG 1 BAG IVPB STA (19:14)
--- NOTE | 2017-05-07 20:26 | PCN ---
DATE OF PROCEDURE: 05/07/2017 PROCEDURE: Arterial line placement. INDICATION: 1. Severe hypotension. 2. Acute myocardial infarction. 3. Sepsis. 4. Pneumonia. OPERATIVE DETAIL: Patient was prepared and draped in the usual fashion. Using a modified Seldinger technique, single-lumen catheter was inserted into the left radial artery without any difficulty. Patient tolerated the procedure well. No complication noted. Good waveforms were obtained. Secured with #3 silk.
--- NOTE | 2017-05-07 20:29 | PCN ---
DATE OF PROCEDURE: PROCEDURE PERFORMED: Right-sided pulmonary arterial catheter placement. INDICATIONS: 1. Acute myocardial infarction. 2. Severe sepsis. 3. Renal poor urine output and renal failure. 4. Severe hypertension. 5. Acute systolic heart failure. OPERATIVE DETAIL: Patient was prepared and draped in the usual fashion. The area thoroughly cleaned on the right anterior lateral part of the neck. 1% lidocaine was infiltrated in the posterior border of the sternocleidomastoid. Using posterior approach introducer was placed into the right internal jugular vein using a modified Seldinger technique, secured with silk, and the introducer was flushed. The guidewire and the dilator was withdrawn. Subsequently the [place]-Tyrone catheter was prepared as well. All the ports were flushed balloon patency was confirmed to be inflating well. The tip of the [place]-Tyrone catheter was inserted from into the introducer. The wave forms were monitored. The catheter was advanced with ( ) of the balloon. The CVP was noted to be 10. Right ventricular was entered. The right ventricular pressure was noted to be 30/10. PA pressure was 30/18. Subsequently balloon was floated until the wedge pressure was obtained which was 12. Balloon was deflated secured at 45 cm gerry. Chest x-ray post procedure is reviewed. Patient tolerated the procedure well. No complication noted. The tip of the catheter is going into the descending branch of the right ( ).
[2017-05-07] MEDS: ATORVASTATIN 80 MG TAB PO SCH (20:39)
[2017-05-08] MEDS: PIPERACILLIN-TAZOBACTAM 3.375 GM in DEXTROSE/WATER 1 50ML.BAG IVPB SCH ×3 (00:05→15:38)
[2017-05-08] MEDS: HEPARIN SODIUM,PORCINE 5,000 UNIT/ML 1 ML VIAL SQ SCH ×3 (00:05→15:29)
[2017-05-08] MEDS: LORazepam 2 MG/ML SYRINGE IV PRN ×5 (02:35→20:29)
[2017-05-08] MEDS: PROPOFOL 500 MG in EMPTY BAG 1 BAG IV SCH ×6 (02:36→19:57)
[2017-05-08 03:09] LABS: Glucose,Whole Blood 133 mg/dL (75-99)
[2017-05-08 04:13] LABS: Basophils % (A) 0 %; CH 32.1; Eosinophils # (A) 0.2 k/uL (0-0.7); Eosinophils % (A) 1 %; HCT 32.6 % (34.0-46.0); HDW 2.29; HGB 11.1 gm/dL (11.4-16.0); Luc # (Auto) 0.16; Luc % (Auto) 1; Lymphocytes # (A) 1.4 k/uL (1.0-4.8); Lymphocytes % (A) 9 %; MCH 32.1 pg (25.0-35.0); MCHC 33.9 g/dL (31.0-37.0); MCV 94.7 fL (80.0-100.0); Mean Platelet Volume 8.4; Monocytes # (A) 0.7 k/uL (0-1.0); Monocytes % (A) 5 %; Neutrophils # (A) 13.8 k/uL (1.3-7.7); Neutrophils % (A) 85 %; RBC 3.45 m/uL (3.80-5.40); WBC 16.3 k/uL (3.8-10.6); WBC (Perox) 16.11
[2017-05-08 04:33] LABS: Anion Gap 6 mmol/L; Blood Urea Nitrogen 10 mg/dL (7-17); Calcium 7.5 mg/dL (8.4-10.2); Carbon Dioxide 22 mmol/L (22-30); Chloride 113 mmol/L (98-107); Glucose 131 mg/dL (74-99); Magnesium 2.1 mg/dL (1.6-2.3); Non-African American GFR(MDRD) >60 (>60 ml/min/1.73 sqM); Phosphorous 2.7 mg/dL (2.5-4.5); Potassium 3.3 mmol/L (3.5-5.1); Sodium 141 mmol/L (137-145)
[2017-05-08 04:54] LABS: ABG Base Excess -1.3 mmol/L; ABG HCO3 23 mmol/L (21-25); ABG PCO2 35 mmHg (35-45); ABG PH 7.43 (7.35-7.45); ABG PO2 89 mmHg (83-108); ABG TCO2 24 mmol/L (19-24)
[2017-05-08] MEDS: POTASSIUM CHLORIDE ORAL LIQUID 40 MEQ/30 ML CUP NG-TUBE SCH ×4 (06:46→18:24)
[2017-05-08 06:52] LABS: Glucose,Whole Blood 131 mg/dL (75-99)
--- NOTE | 2017-05-08 07:49 | XR ---
EXAMINATION TYPE: XR chest 1V portable DATE OF EXAM: 05/08/2017 CLINICAL HISTORY: Difficulty breathing progress study. TECHNIQUE: Single AP portable upright view of the chest is obtained. COMPARISON: Chest x-ray from one day earlier FINDINGS: The [place]-Tyrone catheter, endotracheal tube, and orogastric tube are stable in position. Car diac silhouette size is stable and within normal limits. Reticular interstitial changes bilaterally m ay reflect mild edema. New basilar opacity suggests small bilateral pleural effusions slightly more p rominent right medial basilar infiltrate and/or edema felt present.. Osseous structures are demineral ized. IMPRESSION: Persistent interstitial edema with new small bilateral pleural effusions and developing r ight greater than left bibasilar edema and/or infiltrates present.
[2017-05-08] MEDS: FUROSEMIDE 10 MG/ML 4 ML VIAL IV SCH ×2 (09:52→21:19)
[2017-05-08] MEDS: ASPIRIN 81 MG CHEW PO SCH (09:52)
[2017-05-08] MEDS: CHLORHEXIDINE GLUCONATE 15 ML CUP MUCOUS MEM SCH ×2 (09:52→22:12)
[2017-05-08] MEDS: CLOPIDOGREL 75 MG TAB PO SCH (09:52)
[2017-05-08] MEDS: SPIRONOLACTONE 25 MG TAB PO SCH (09:53)
[2017-05-08] MEDS: METOPROLOL TARTRATE 25 MG TAB PO SCH (09:53)
[2017-05-08] MEDS: PANTOPRAZOLE 40 MG/10 ML VIAL IVP SCH (09:53)
--- NOTE | 2017-05-08 11:34 | P.PN ---
Subjective Patient is sedated and intubated. She is being seen by me today for the first time on weekend coverage. No acute issues reported by nursing staff overnight. Objective - Vital Signs Vital signs: Vital Signs Temp 98.9 F 05/08/17 08:00 Pulse 96 05/08/17 11:00 Resp 20 05/08/17 11:00 BP 110/54 05/07/17 10:30 Pulse Ox 98 05/08/17 11:00 Intake & Output 05/07/17 05/08/17 05/08/17 18:59 06:59 18:59 Intake Total 2873.554 1740.593 674.877 Output Total 1720 1305 950 Balance 1153.554 435.593 -275.123 Weight 50.2 kg 50.2 kg Intake: IV 1325 936 398.0 NS for pressure bag 36 48 Piperacillin-Tazobactam 3 50.0 .375 gm In Dextrose/Water 1 50ml.bag @ 12.5 mls/hr IVPB Q8HR JACKIE Rx#: [id number] Sodium Chloride 0.9% 1, 1325 900 300 000 ml @ 75 mls/hr IV . [id number] JACKIE Rx#:[id number] Intake, IV Titration 1448.554 254.593 46.877 Amount Norepinephrin 16 mg-0.9% 69.454 0 Ns Pmx 16 mg In 250 ml @ Titrate IV .Q0M JACKIE Rx#: [id number] Norepinephrin 4 mg-0.9% 218 Ns Pmx 4 mg In 250 ml @ Titrate IV .Q0M JACKIE Rx#: [id number] Piperacillin-Tazobactam 3 75.0 112.5 .375 gm In Dextrose/Water 1 50ml.bag @ 12.5 mls/hr IVPB Q8HR JACKIE Rx#: [id number] Propofol 500 mg In Empty 86.100 142.093 46.877 Bag 1 bag @ Titrate IV . Q0M JACKIE Rx#:[id number] Sodium Chloride 0.9% 1, 1000 000 ml @ 250 mls/hr IV . Q4H JACKIE Rx#:[id number] Oral 170 Tube Feeding 100 430 60 Other 120 Output: Urine 1295 1305 950 Oral Regurgitation 425 Other: Voiding Method Indwelling Catheter Indwelling Catheter Indwelling Catheter # Bowel Movements 0 ABP, PAP, CO, CI - Last Documented Arterial Blood Pressure 83/40 Pulmonary Artery Pressure 16/9 Cardiac Output 5.1 Cardiac Index 2.4 - Exam General: The patient is sedated and intubated Eye: there is normal conjunctiva bilaterally. Neck: The neck is supple, there is no JVD. Cardiovascular: Normal S1-S2, no S3-S4, no murmurs. Respiratory: Lungs with mechanical ventilator sounds Abdomen is soft and nondistended Musculoskeletal: There is no pedal edema. Skin: Skin is warm and dry - Labs CBC & Chem 7: 05/08/17 04:00 05/08/17 04:00 Labs: Abnormal Lab Results - Last 24 Hours (Table) 05/07/17 05/07/17 05/07/17 Range/Units 12:03 12:28 12:46 WBC (3.8-10.6) k/uL RBC (3.80-5.40) m/uL Hgb (11.4-16.0) gm/dL Hct (34.0-46.0) % Neutrophils # (1.3-7.7) k/uL ABG pH 7.50 H (7.35-7.45) ABG pCO2 28 L (35-45) mmHg ABG pO2 53 L (83-108) mmHg ABG O2 Saturation 90.0 L (94-97) % Potassium 3.3 L (3.5-5.1) mmol/L Chloride (98-107) mmol/L Glucose (74-99) mg/dL POC Glucose (mg/dL) 118 H (75-99) mg/dL Calcium (8.4-10.2) mg/dL 05/08/17 05/08/17 05/08/17 Range/Units 03:06 04:00 04:00 WBC 16.3 H (3.8-10.6) k/uL RBC 3.45 L (3.80-5.40) m/uL Hgb 11.1 L (11.4-16.0) gm/dL Hct 32.6 L (34.0-46.0) % Neutrophils # 13.8 H (1.3-7.7) k/uL ABG pH (7.35-7.45) ABG pCO2 (35-45) mmHg ABG pO2 (83-108) mmHg ABG O2 Saturation (94-97) % Potassium 3.3 L (3.5-5.1) mmol/L Chloride 113 H (98-107) mmol/L Glucose 131 H (74-99) mg/dL POC Glucose (mg/dL) 133 H (75-99) mg/dL Calcium 7.5 L (8.4-10.2) mg/dL 05/08/17 Range/Units 06:50 WBC (3.8-10.6) k/uL RBC (3.80-5.40) m/uL Hgb (11.4-16.0) gm/dL Hct (34.0-46.0) % Neutrophils # (1.3-7.7) k/uL ABG pH (7.35-7.45) ABG pCO2 (35-45) mmHg ABG pO2 (83-108) mmHg ABG O2 Saturation (94-97) % Potassium (3.5-5.1) mmol/L Chloride (98-107) mmol/L Glucose (74-99) mg/dL POC Glucose (mg/dL) 131 H (75-99) mg/dL Calcium (8.4-10.2) mg/dL Microbiology - Last 24 Hours (Table) 05/07/17 04:42 Blood Culture - Preliminary Blood No Growth after 24 hours 05/07/17 08:20 Urine Culture - Preliminary Urine,Catheterized 05/06/17 18:30 Gram Stain - Preliminary Sputum Sputum Culture - Preliminary Assessment and Plan Plan: 1. Non-ST elevation and ice status post left heart catheterization with successful stent placement to proximal LAD 2. Acute systolic heart failure with ischemic cardiomyopathy 3. Acute respiratory failure secondary to pulmonary edema requiring mechanical intubation: Pulmonary service following 4. Hypomagnesemia patient is receiving magnesium supplement 5. Leukocytosis we'll monitor. Patient is currently on IV Zosyn 6. Essential hypertension 7. Nicotine dependence 8. Hyperlipidemia 9. History of cerebral aneurysm with stent placement Today, I reviewed her medication list and lab work results. Continue current regimen. Appreciate weight loss sales consultant's recommendations.
[2017-05-08] MEDS: LOSARTAN 50 MG TAB PO SCH (11:39)
[2017-05-08 12:37] LABS: Glucose,Whole Blood 130 mg/dL (75-99)
[2017-05-08] MEDS: ALBUTEROL NEBULIZED 2.5 MG/3 ML INHALATION SCH ×2 (13:31→19:36)
--- NOTE | 2017-05-08 16:57 | PN ---
This 61-year-old lady came in with what seems to be a takotsubo-type picture with mild troponin elevation, significant LV dysfunction; has been on a ventilator. She is still on a ventilator, being supported. FiO2 is 55%. I am recommending that we add a small dose of losartan, perform echocardiogram on Wednesday. She is quite deeply sedated. Vital signs are stable. S1, S2 heard normally. Short systolic murmur noted. Lungs reveal fairly decent air entry with the ventilator. Abdomen and lower extremity exam is unchanged. Will repeat echocardiogram on Wednesday, start losartan 50 mg daily.
[2017-05-08] MEDS ORDERED: Potassium Replacement Protocol 1 EACH MISC MISCELLANE PRN (17:01)
--- NOTE | 2017-05-08 17:50 | PN ---
DATE OF SERVICE: 05/08/2017 Critical care time 40 minutes. Ms. Amy Thomas is seen, evaluated, examined. Patient is on propofol 50 mcg and has been receiving Ativan, with a large dose done around PM. She is sedated at this point in time. She is on full respirator support with assist control rate of 14, breathing about 19, tidal volume of 450, 5 of PEEP, and FiO2 is 60%. Attempts to lower the FiO2 have been unsuccessful, associated with desaturation. Her index and output have been reviewed. Her cardiac output is improved to 3 from 2.2 yesterday. Of note that patient is off of the Levophed drip as well. The chest x-ray revealed significant clearing of the interstitial pneumonia and pulmonary edema. Interstitial edema and pulmonary edema have been seen; however, dense consolidation now noted in the right lower lobe. Patient still has a significant amount of secretions through the ET tube. Care plan discussed with the staff as well as Cardiovascular Service. Patient at this point in time is not ready for weaning. Will continue current supportive care. Patient did spike a fever of 101 yesterday, requiring IV Tylenol as well. Her most recent vitals include blood pressure 115/44, respiratory rate 22, heart rate 95, temperature 99, saturation of 100% on current vent settings. HEENT: Atraumatic, normocephalic. Pharynx is clear. NECK: Supple. Neck veins are prominent. LUNGS: Bilateral good air entry. Bronchial breath sounds and crackles in the right base. HEART: Regular rate, rhythm. S1, S2 audible. ABDOMEN: Soft. Tolerating tube feeds well. EXTREMITIES: Plus one peripheral pulses. NEUROLOGICAL EXAMINATION: Sedated with propofol and as-needed Ativan. Current medications are reviewed. Laboratory data reviewed as well. Culture results and reports are reviewed as well. The blood cultures and urine culture so far have been negative. Sputum culture: no organism has been found. Other laboratory data revealed white cell count 16,300, hemoglobin 11, hematocrit 32, platelet count 158,000. Arterial blood gas shows pH of 7.43, pCO2 of 35, pO2 89 on above vent settings. Sodium 140, potassium 3.3. BUN and creatinine are 10 and 0.58. Glucose 151. IMPRESSION: 1. Acute hypoxic respiratory failure related to pulmonary edema. 2. Sepsis associated with right lower lobe pneumonia. 3. Severe degree of coronary artery disease with stenosis of the left anterior descending coronary artery requiring stent placement. 4. Acute cardiomyopathy and acute systolic heart failure. The therapy is being guided with the help of [place]-Tyrone catheter. Patient is gently being rehydrated, which she seems to be tolerating well. Urine output is improving, with more stability on hemodynamic parameters as well as the x-ray finding and oxygenation. Anticipate once cardiac output is relatively more stabilized, then will proceed with weaning. 5. Hypokalemia. Replace electrolytes. 6. History of hypertension, hypertensive cardiovascular disease. 7. Dyslipidemia. 8. History of significant amount of stress lately; her son related to drug overdose. Will follow clinical course closely. Plan as above. Critical care time spent: 40 minutes.
[2017-05-08] MEDS ORDERED: ACETAMINOPHEN IV (For NPO) 1,000 MG in EMPTY BAG 1 BAG IVPB ONE (18:00)
[2017-05-08 18:17] LABS: Glucose,Whole Blood 129 mg/dL (75-99)
[2017-05-08] MEDS: NOREPINEPHRIN 16 MG-0.9%NS PMX 16 MG/250 ML ML IV SCH (19:56)
[2017-05-08] MEDS ORDERED: SODIUM CHLORIDE 0.9% 500 ML IV ONE (21:20)
[2017-05-08] MEDS: SCOPOLAMINE 1.5MG/72HR PATCH TRANSDERM SCH (22:12)
[2017-05-08] MEDS: ATORVASTATIN 80 MG TAB PO SCH (22:12)
[2017-05-08] MEDS: SODIUM CHLORIDE 0.9% 1,000 ML IV SCH (22:18)
[2017-05-09] MEDS: METOPROLOL TARTRATE 25 MG TAB PO SCH ×3 (00:22→21:14)
[2017-05-09] MEDS: SODIUM CHLORIDE 0.9% 1,000 ML IV SCH ×8 (00:23→21:51)
[2017-05-09] MEDS: HEPARIN SODIUM,PORCINE 5,000 UNIT/ML 1 ML VIAL SQ SCH ×4 (01:31→23:17)
[2017-05-09] MEDS: PIPERACILLIN-TAZOBACTAM 3.375 GM in DEXTROSE/WATER 1 50ML.BAG IVPB SCH ×4 (01:31→23:17)
[2017-05-09] MEDS: PROPOFOL 500 MG in EMPTY BAG 1 BAG IV SCH ×6 (01:32→21:50)
[2017-05-09] MEDS: LORazepam 2 MG/ML SYRINGE IV PRN ×3 (02:12→22:13)
[2017-05-09 02:15] LABS: Glucose,Whole Blood 136 mg/dL (75-99)
[2017-05-09 04:57] LABS: Glucose,Whole Blood 118 mg/dL (75-99)
[2017-05-09 04:58] LABS: ABG HCO3 20 mmol/L (21-25); ABG PCO2 31 mmHg (35-45); ABG PH 7.44 (7.35-7.45); ABG PO2 78 mmHg (83-108); ABG TCO2 21 mmol/L (19-24)
[2017-05-09 05:05] LABS: Basophils % (A) 0 %; CH 31.5; CHCM 33.7; Eosinophils # (A) 0.1 k/uL (0-0.7); Eosinophils % (A) 1 %; HCT 30.2 % (34.0-46.0); HDW 2.44; HGB 10.5 gm/dL (11.4-16.0); Luc # (Auto) 0.31; Luc % (Auto) 2; Lymphocytes # (A) 1.3 k/uL (1.0-4.8); Lymphocytes % (A) 8 %; MCH 32.8 pg (25.0-35.0); MCHC 34.9 g/dL (31.0-37.0); MCV 94.1 fL (80.0-100.0); Mean Platelet Volume 8.5; Monocytes # (A) 0.8 k/uL (0-1.0); Monocytes % (A) 5 %; Neutrophils # (A) 12.7 k/uL (1.3-7.7); Neutrophils % (A) 84 %; RBC 3.21 m/uL (3.80-5.40); WBC 15.2 k/uL (3.8-10.6); WBC (Perox) 15.89
[2017-05-09 05:17] LABS: Anion Gap 6 mmol/L; Blood Urea Nitrogen 11 mg/dL (7-17); Calcium 7.5 mg/dL (8.4-10.2); Carbon Dioxide 21 mmol/L (22-30); Chloride 114 mmol/L (98-107); Glucose 130 mg/dL (74-99); Magnesium 1.9 mg/dL (1.6-2.3); Non-African American GFR(MDRD) >60 (>60 ml/min/1.73 sqM); Phosphorous 2.3 mg/dL (2.5-4.5); Sodium 141 mmol/L (137-145)
[2017-05-09] MEDS ORDERED: SODIUM PHOSPHATE 10 MMOL in SODIUM CHLORIDE 0.9% 100 ML IVPB ONE (05:26)
[2017-05-09] MEDS ORDERED: Phosphorus Replacement Protoco 1 EACH MISC MISCELLANE PRN (05:26)
[2017-05-09] MEDS: MAGNESIUM SULFATE-D5W PMX 1 GM in DEXTROSE/WATER 1 100ML.BAG IVPB SCH ×2 (05:43→07:00)
--- NOTE | 2017-05-09 07:31 | XR ---
EXAMINATION TYPE: XR chest 1V portable DATE OF EXAM: 05/09/2017 CLINICAL HISTORY: Difficulty breathing progress study. TECHNIQUE: Single AP portable upright view of the chest is obtained. COMPARISON: Chest x-ray from one day earlier FINDINGS: The [place]-Tyrone catheter, endotracheal tube, and orogastric tube are stable in position. Car diac silhouette size is stable and within normal limits. Reticular interstitial changes bilaterally m ay reflect mild edema. Persistent basilar opacity suggests small right-sided pleural effusion and ass ociated basilar infiltrate and/or atelectasis felt present.. Improved aeration left lung base is pres ent. Osseous structures are demineralized. Suspect old healed fracture right proximal humerus. IMPRESSION: Resolving left basilar effusion and infiltrate. Stable small right pleural effusion and a ssociated atelectasis and/or infiltrate.
[2017-05-09] MEDS: ALBUTEROL NEBULIZED 2.5 MG/3 ML INHALATION SCH ×3 (08:02→20:13)
[2017-05-09] MEDS: ASPIRIN 81 MG CHEW PO SCH (08:38)
[2017-05-09] MEDS: CHLORHEXIDINE GLUCONATE 15 ML CUP MUCOUS MEM SCH ×2 (08:38→21:14)
[2017-05-09] MEDS: CLOPIDOGREL 75 MG TAB PO SCH (08:39)
[2017-05-09] MEDS: FAMOTIDINE 20 MG TAB PO SCH ×2 (10:00→21:14)
[2017-05-09] MEDS: LOSARTAN 50 MG TAB PO SCH (10:50)
[2017-05-09] MEDS: SPIRONOLACTONE 25 MG TAB PO SCH (10:50)
--- NOTE | 2017-05-09 13:26 | P.PN ---
Subjective Patient is sedated and intubated. She is being seen by me today for the first time on weekend coverage. No acute issues reported by nursing staff overnight. Objective - Vital Signs Vital signs: Vital Signs Temp 98.0 F 05/09/17 08:00 Pulse 77 05/09/17 12:00 Resp 21 05/09/17 12:00 BP 117/44 05/09/17 12:00 Pulse Ox 100 05/09/17 12:00 Intake & Output 05/08/17 05/09/17 05/09/17 18:59 06:59 18:59 Intake Total 3048.016 7929.251 2437.281 Output Total 1780 389 430 Balance 28.688 6889.184 3882.281 Weight 55.3 kg Intake: IV 1154.0 1531.5 1972 ACETAMINOPHEN IV (For NPO 100 ) 1,000 mg In Empty Bag 1 bag @ 400 mls/hr IVPB ONCE ONE Rx#:[id number] Magnesium Sulfate-D5w Pmx 200 1 gm In Dextrose/Water 1 100ml.bag @ 100 mls/hr IVPB Q1H [facility] Rx#: [id number] NS for pressure bag 129 144 72 Piperacillin-Tazobactam 3 100.0 62.5 50 .375 gm In Dextrose/Water 1 50ml.bag @ 12.5 mls/hr IVPB Q8HR [facility] Rx#: [id number] Sodium Chloride 0.9% 1, 825 825 500 000 ml @ 100 mls/hr IV . Q10H [facility] Rx#:[id number] Sodium Chloride 0.9% 1, 1000 000 ml @ 250 mls/hr IV . Q4H [facility] Rx#:[id number] Sodium Chloride 0.9% 500 500 ml @ 999 mls/hr IV .Q31M [facility] Rx#:[id number] Sodium Phosphate 10 mmol 150 In Sodium Chloride 0.9% 100 ml @ 50 mls/hr IVPB ONCE ONE Rx#:[id number] Intake, IV Titration 139.688 142.751 175.281 Amount Norepinephrin 16 mg-0.9% 6.876 130.892 Ns Pmx 16 mg In 250 ml @ Titrate IV .Q0M [facility] Rx#: [id number] Propofol 500 mg In Empty 139.688 135.875 44.389 Bag 1 bag @ Titrate IV . Q0M [facility] Rx#:[id number] Oral 30 Tube Feeding 390 240 180 Other 95 90 110 Output: Urine 1780 389 430 Other: Voiding Method Indwelling Catheter Indwelling Catheter Indwelling Catheter # Bowel Movements 0 0 0 ABP, PAP, CO, CI - Last Documented Arterial Blood Pressure 126/50 Pulmonary Artery Pressure 31/25 Cardiac Output 4.6 Cardiac Index 3.3 - Exam General: The patient is sedated and intubated Eye: there is normal conjunctiva bilaterally. Neck: The neck is supple, there is no JVD. Cardiovascular: Normal S1-S2, no S3-S4, no murmurs. Respiratory: Lungs with mechanical ventilator sounds Abdomen is soft and nondistended Musculoskeletal: There is no pedal edema. Skin: Skin is warm and dry - Labs CBC & Chem 7: 05/09/17 05:00 05/09/17 05:00 Labs: Abnormal Lab Results - Last 24 Hours (Table) 05/08/17 05/09/17 05/09/17 Range/Units 18:13 02:11 04:46 WBC (3.8-10.6) k/uL RBC (3.80-5.40) m/uL Hgb (11.4-16.0) gm/dL Hct (34.0-46.0) % Neutrophils # (1.3-7.7) k/uL ABG pCO2 31 L (35-45) mmHg ABG pO2 78 L (83-108) mmHg ABG HCO3 20 L (21-25) mmol/L Chloride (98-107) mmol/L Carbon Dioxide (22-30) mmol/L Creatinine (0.52-1.04) mg/dL Glucose (74-99) mg/dL POC Glucose (mg/dL) 129 H 136 H (75-99) mg/dL Calcium (8.4-10.2) mg/dL Phosphorus (2.5-4.5) mg/dL 05/09/17 05/09/17 05/09/17 Range/Units 04:55 05:00 05:00 WBC 15.2 H (3.8-10.6) k/uL RBC 3.21 L (3.80-5.40) m/uL Hgb 10.5 L (11.4-16.0) gm/dL Hct 30.2 L (34.0-46.0) % Neutrophils # 12.7 H (1.3-7.7) k/uL ABG pCO2 (35-45) mmHg ABG pO2 (83-108) mmHg ABG HCO3 (21-25) mmol/L Chloride 114 H (98-107) mmol/L Carbon Dioxide 21 L (22-30) mmol/L Creatinine 0.50 L (0.52-1.04) mg/dL Glucose 130 H (74-99) mg/dL POC Glucose (mg/dL) 118 H (75-99) mg/dL Calcium 7.5 L (8.4-10.2) mg/dL Phosphorus 2.3 L (2.5-4.5) mg/dL Microbiology - Last 24 Hours (Table) 05/06/17 18:30 Gram Stain - Final Sputum Sputum Culture - Final 05/07/17 04:42 Blood Culture - Preliminary Blood No Growth after 48 hours 05/07/17 21:05 Blood Culture - Preliminary Blood No Growth after 24 hours 05/07/17 08:20 Urine Culture - Final Urine,Catheterized Assessment and Plan Plan: 1. Non-ST elevation and ice status post left heart catheterization with successful stent placement to proximal LAD 2. Acute systolic heart failure with ischemic cardiomyopathy 3. Acute respiratory failure secondary to pulmonary edema requiring mechanical intubation: Pulmonary service following 4. Hypomagnesemia patient is receiving magnesium supplement 5. Leukocytosis we'll monitor. Patient is currently on IV Zosyn 6. Essential hypertension 7. Nicotine dependence 8. Hyperlipidemia 9. History of cerebral aneurysm with stent placement Today, I reviewed her medication list and lab work results. Continue current regimen. Appreciate process improvement consultant's recommendations.
[2017-05-09 13:52] LABS: Glucose,Whole Blood 79 mg/dL (75-99)
--- NOTE | 2017-05-09 15:25 | PN ---
DATE OF SERVICE: 05/09/2017 Critical care time spent: 40 minutes. Ms. Amy Thomas has an episode related to decreased urine output and drop in blood pressure. The patient does have some thick secretions present. The scopolamine patch is helping. The patient did require fluid resuscitation. Another course of crystalloid resuscitation is being given. Patient is currently on 15 mcg of low-fat drip and propofol as well. Sedation in the form of Ativan and morphine has been working much better. Propofol drip is being tapered down, Patient's cardiac index and output has been reviewed and output has improved to 4.8 and index is 3 now. CVP remains on the lower side and patient would do well with fluid resuscitation. I will stop the Lasix at this point in time. In addition to above, patient is also on Protonix, which is being discontinued changed to Pepcid as the patient will be on terminal press operator Plavix. On examination, the patient is sedated with propofol and Ativan as needed. Last dose of Ativan was given 3 in the morning due to severe agitation. She does well with 2 to 4 mg of Ativan. Last set of vitals include blood pressure is 124/43, respiratory rate is 22, heart rate 78, temperature is 98, saturation of 95% to 98%, FiO2 has been down to 50% now with PEEP of 5. HEENT EXAMINATION: Otherwise unremarkable. NECK: Supple. Neck veins slightly prominent. No bruits present. LUNGS: Good air entry bilaterally with bronchial breath sounds in the right base. HEART: Regular rate and rhythm. S1 and S2 audible. ABDOMEN: Soft, tolerating tube feeds very well. EXTREMITIES: +1 peripheral pulses. NEUROLOGICAL EXAMINATION: Sedated with propofol and Ativan as needed. Current medications are reviewed and include: 1. Albuterol updraft 3 times a day. 2. Aspirin 81 mg daily. 3. Lipitor 80 mg daily. 4. Atropine as needed. 5. Peridex. 6. Plavix 75 mg daily. 7. Pepcid 20 mg 2 times a day. 8. Subcu heparin 5000 units subcu q.8 hourly. 9. Ativan as needed. 10. Losartan 50 mg daily. 11. Metoprolol 25 mg p.o. 2 times a day. 12. K-Mag-Phos replacement protocol. 13. Also on Levophed. 14. Zosyn. 15. Scopolamine patch. 16. IV fluids normal saline 100 mL an hour. White cell count is down to 15,000, hemoglobin 10 and hematocrit 30, platelet count of 154,000. Arterial blood gases pH 7.44, pCO2 of 31, pO2 of 78, on 40% oxygen. Sodium is 141, potassium 4.0, BUN and creatinine are 11 and 0.5. Glucose is 130. The last chest x-ray performed earlier today reviewed and compared with the prior x-ray. ET tube Poth-Tyrone catheter, OG tube are stable. Bilateral interstitial pattern and edema is seen, small basal atelectasis and effusion, right-sided pneumonia and left-sided infiltrate and atelectasis is seen, has improved though. IMPRESSION: 1. Acute systolic heart failure related to acute myocardial infarction and coronary artery disease associated Takotsubo syndrome cannot be excluded 2. Right lower lobe pneumonia. 3. Sepsis, associated with pneumonia 4. Coronary artery disease and stenosis of the left anterior descending coronary artery status post stent placement. 5. Hemodynamic status instability with hypovolemic status. Patient is fluid resuscitated. We will hold on the Lasix. 6. Electrolyte imbalance and replace electrolytes as tolerated. Continue to maintain on DVT and peptic ulcer disease prophylaxis. We will DC Protonix, change to Pepcid and monitor clinical course closely. Critical care time spent: 40 minutes.
--- NOTE | 2017-05-09 17:39 | PN ---
This lady presented with takotsubo type picture, had a troponin elevation, but had significant disproportionate LV dysfunction. On a ventilator, hemodynamically stable today, deeply sedated. I cannot communicate. S1 and S2 heard normally. Lungs reveal diminished air entry. Abdomen and lower extremity exam unchanged. Vital signs are stable. Plan is to continue current medications including beta blockers and losartan and I will check an echocardiogram tomorrow.
[2017-05-09] MEDS: ATORVASTATIN 80 MG TAB PO SCH (21:51)
[2017-05-10 01:35] LABS: Glucose,Whole Blood 102 mg/dL (75-99)
[2017-05-10] MEDS: LORazepam 2 MG/ML SYRINGE IV PRN (04:29)
[2017-05-10] MEDS: PROPOFOL 500 MG in EMPTY BAG 1 BAG IV SCH ×3 (04:29→19:00)
[2017-05-10 05:04] LABS: Basophils % (A) 0 %; CH 31.6; CHCM 32.1; Eosinophils # (A) 0.2 k/uL (0-0.7); Eosinophils % (A) 3 %; HCT 29.4 % (34.0-46.0); HDW 2.33; HGB 9.4 gm/dL (11.4-16.0); Luc # (Auto) 0.13; Luc % (Auto) 2; Lymphocytes # (A) 1.1 k/uL (1.0-4.8); Lymphocytes % (A) 18 %; MCH 31.6 pg (25.0-35.0); Macrocytosis Slight; Mean Platelet Volume 8.4; Monocytes # (A) 0.4 k/uL (0-1.0); Monocytes % (A) 6 %; Neutrophils # (A) 4.5 k/uL (1.3-7.7); Neutrophils % (A) 71 %; RBC 2.97 m/uL (3.80-5.40); RDW 14.4 % (11.5-15.5); WBC 6.3 k/uL (3.8-10.6); WBC (Perox) 6.33
[2017-05-10 05:34] LABS: ABG Base Excess -1.5 mmol/L; ABG HCO3 22 mmol/L (21-25); ABG PCO2 35 mmHg (35-45); ABG PH 7.42 (7.35-7.45); ABG PO2 101 mmHg (83-108); ABG TCO2 23 mmol/L (19-24)
[2017-05-10 05:36] LABS: Anion Gap 4 mmol/L; Blood Urea Nitrogen 9 mg/dL (7-17); Calcium 7.7 mg/dL (8.4-10.2); Carbon Dioxide 23 mmol/L (22-30); Chloride 113 mmol/L (98-107); Glucose 104 mg/dL (74-99); Non-African American GFR(MDRD) >60 (>60 ml/min/1.73 sqM); Potassium 3.8 mmol/L (3.5-5.1); Sodium 140 mmol/L (137-145)
[2017-05-10] MEDS: SODIUM CHLORIDE 0.9% 1,000 ML IV SCH ×4 (06:28→11:41)
[2017-05-10 07:08] LABS: Glucose,Whole Blood 102 mg/dL (75-99)
[2017-05-10] MEDS: ALBUTEROL NEBULIZED 2.5 MG/3 ML INHALATION SCH ×3 (07:41→19:32)
--- NOTE | 2017-05-10 07:45 | XR ---
EXAMINATION TYPE: XR chest 1V portable DATE OF EXAM: 05/10/2017 COMPARISON: 05/09/2017 INDICATION: difficulty breathing TECHNIQUE: Single frontal view of the chest is obtained. FINDINGS: The heart size is normal. The pulmonary vasculature is prominent. Minimal subsegmental atelectasis may be at the bilateral lung bases. Atypical pulmonary edema could b e considered. A small right pleural effusion should be considered. This is diminished from comparison . Endotracheal tube is stable with the tip above the tresa. Nasogastric tube is unchanged. Bellvue-Tyrone c atheter with tip in the main pulmonary artery is stable. IMPRESSION: 1. Minimal right pleural effusion, diminishing. 2. Volume overload. 3. Clinical correlation recommended for subsegmental atelectasis.
[2017-05-10] MEDS ORDERED: POTASSIUM CHLORIDE ORAL LIQUID 40 MEQ/30 ML CUP NG-TUBE SCH (08:00)
[2017-05-10] MEDS: ASPIRIN 81 MG CHEW PO SCH (08:58)
[2017-05-10] MEDS: HEPARIN SODIUM,PORCINE 5,000 UNIT/ML 1 ML VIAL SQ SCH ×3 (08:58→23:14)
[2017-05-10] MEDS: CHLORHEXIDINE GLUCONATE 15 ML CUP MUCOUS MEM SCH ×2 (08:58→23:13)
[2017-05-10] MEDS: METOPROLOL TARTRATE 25 MG TAB PO SCH (08:59)
[2017-05-10] MEDS: FAMOTIDINE 20 MG TAB PO SCH ×2 (08:59→23:13)
[2017-05-10] MEDS: LOSARTAN 50 MG TAB PO SCH (08:59)
[2017-05-10] MEDS: CLOPIDOGREL 75 MG TAB PO SCH (09:00)
[2017-05-10] MEDS: SPIRONOLACTONE 25 MG TAB PO SCH (09:00)
[2017-05-10] MEDS: PIPERACILLIN-TAZOBACTAM 3.375 GM in DEXTROSE/WATER 1 50ML.BAG IVPB SCH ×3 (09:24→23:14)
--- NOTE | 2017-05-10 10:12 | P.PN ---
Subjective This is a 61-year-old female, patient of Dr. Davalos. She has a known past medical history of cerebral aneurysm with stent placement, hypertension, hyperlipidemia and nicotine dependence. Patient initially presented to the emergency room at [facility] [place] with complaints of chest pain. Please note that the information has been taken from patient's chart. She is currently intubated and sedated in the ICU. Per cardiology note patient presented with chest pain and shortness of breath. There is mild elevation in her troponin and evidence of EKG changes. The reports anterior T-wave inversions and subtle ST segment elevation in V2 and V3. Therefore she was transferred to [facility] to undergo heart catheterization with stent placement. Heart catheterization was completed yesterday with evidence of stenosis in the proximal LAD patient underwent stent placement to this area. During that time patient developed pulmonary edema required briefly on IV Lasix and intubated and is currently in the ICU 05/10/2017 patient remains in the ICU and intubated. She is currently off of pressors. Cardiology and pulmonary service following. Echo had shown an EF of less than 20% with wall motion abnormality and and mild mitral regurgitation and tricuspid regurgitation. She is scheduled for repeat echo today. Objective - Vital Signs Vital signs: Vital Signs Temp 99.1 F 05/10/17 09:00 Pulse 86 05/10/17 09:00 Resp 24 05/10/17 09:00 BP 111/44 05/10/17 07:00 Pulse Ox 100 05/10/17 09:00 Intake & Output 05/09/17 05/10/17 05/10/17 18:59 06:59 18:59 Intake Total 3453.781 1786.486 386 Output Total 725 743 255 Balance 2728.781 1043.486 131 Intake: IV 2678.5 1356.5 336 Magnesium Sulfate-D5w Pmx 200 1 gm In Dextrose/Water 1 100ml.bag @ 100 mls/hr IVPB Q1H [facility] Rx#: [id number] NS for pressure bag 141 144 36 Piperacillin-Tazobactam 3 87.5 12.5 .375 gm In Dextrose/Water 1 50ml.bag @ 12.5 mls/hr IVPB Q8HR [facility] Rx#: [id number] Sodium Chloride 0.9% 1, 1100 1200 300 000 ml @ 100 mls/hr IV . Q10H [facility] Rx#:[id number] Sodium Chloride 0.9% 1, 1000 000 ml @ 250 mls/hr IV . Q4H [facility] Rx#:[id number] Sodium Phosphate 10 mmol 150 In Sodium Chloride 0.9% 100 ml @ 50 mls/hr IVPB ONCE ONE Rx#:[id number] Intake, IV Titration 275.281 99.986 50 Amount Norepinephrin 16 mg-0.9% 130.892 Ns Pmx 16 mg In 250 ml @ Titrate IV .Q0M [facility] Rx#: [id number] Propofol 500 mg In Empty 144.389 99.986 50 Bag 1 bag @ Titrate IV . Q0M [facility] Rx#:[id number] Tube Feeding 390 330 Other 110 Output: Urine 725 743 255 Other: Voiding Method Indwelling Catheter Indwelling Catheter # Bowel Movements 0 ABP, PAP, CO, CI - Last Documented Arterial Blood Pressure 178/59 Pulmonary Artery Pressure 34/28 Cardiac Output 5.4 Cardiac Index 3.5 - Exam Head normocephalic Neck supple Lungs clear to auscultation bilaterally no wheezing or crackles Heart regular rate and rhythm S1-S2, no rub or gallop Abdomen is soft nontender nondistended positive bowel sounds no hepatosplenomegaly Extremities no edema Neuro intubated and sedated - Labs CBC & Chem 7: 05/10/17 04:50 05/10/17 04:50 Labs: Abnormal Lab Results - Last 24 Hours (Table) 05/10/17 05/10/17 05/10/17 Range/Units 01:19 04:50 04:50 RBC 2.97 L (3.80-5.40) m/uL Hgb 9.4 L (11.4-16.0) gm/dL Hct 29.4 L (34.0-46.0) % Plt Count 141 L (150-450) k/uL ABG O2 Saturation (94-97) % Chloride 113 H (98-107) mmol/L Creatinine 0.40 L (0.52-1.04) mg/dL Glucose 104 H (74-99) mg/dL POC Glucose (mg/dL) 102 H (75-99) mg/dL Calcium 7.7 L (8.4-10.2) mg/dL 05/10/17 05/10/17 Range/Units 05:25 07:06 RBC (3.80-5.40) m/uL Hgb (11.4-16.0) gm/dL Hct (34.0-46.0) % Plt Count (150-450) k/uL ABG O2 Saturation 98.0 H (94-97) % Chloride (98-107) mmol/L Creatinine (0.52-1.04) mg/dL Glucose (74-99) mg/dL POC Glucose (mg/dL) 102 H (75-99) mg/dL Calcium (8.4-10.2) mg/dL Microbiology - Last 24 Hours (Table) 05/07/17 04:42 Blood Culture - Preliminary Blood No Growth after 72 hours 05/07/17 21:05 Blood Culture - Preliminary Blood No Growth after 48 hours 05/06/17 18:30 Gram Stain - Final Sputum Sputum Culture - Final Assessment and Plan Plan: 1. Chest pain with possible acute ST elevated myocardial infarction or Takotsubo syndrome: Patient underwent heart catheterization requiring stent to the LAD. Continue Plavix, aspirin, Lipitor, metoprolol. Cardiology following closely 2. Acute respiratory failure secondary to pulmonary edema requiring mechanical intubation: Pulmonary service following 3. Acute pulmonary edema: Improved with Lasix. Currently off of Lasix 4. Hypomagnesemia patient is receiving magnesium supplement 5. Pneumonia: Pulmonary following. White count has normalized. Continue antibiotics. Continue Zosyn 6. Essential hypertension 7. Nicotine dependence 8. Hyperlipidemia 9. History of cerebral aneurysm with stent placement 10. Anemia: Hemoglobin 9.4. Check iron studies. DVT prophylaxis subcu heparin and GI prophylaxis Pepcid I performed an examination of the patient and discussed their management with the physician Handbag Stitcher. I have reviewed the Physician Handbag Stitcher's notes and agree with the documented findings and plan of care
--- NOTE | 2017-05-10 10:18 | ECHOF ---
Referral Reason:asses LVF MEASUREMENTS -------- HEIGHT: 165.1 cm WEIGHT: 54.9 kg BP: 151/47 MV E Donny: 1.23 m/s MV DecT: 233 ms MV A Donny: 0.97 m/s MV E/A Ratio: 1.26 RAP: 5.00 mmHg RVSP: 19.80 mmHg FINDINGS -------- Sinus rhythm. Limited Study Pt. on a vent. Overall left ventricular systolic function is mild-moderately impaired with, an EF between 40 - 45 %. Mitral Doppler inflow pattern suggests diastolic filling abnormality 23.90. Mid anteroseptal LV wall motion is hypokinetic. Apical septum LV wall motion is hypokinetic. [place] Hypokinesis. CONCLUSIONS -------- 1. Sinus rhythm. 2. Limited Study 3. Pt. on a vent. 4. Overall left ventricular systolic function is mild-moderately impaired with, an EF between 40 - 45 %. 5. Mitral Doppler inflow pattern suggest diastolic filling abnormality 23.90. 6. Mid anteroseptal LV wall motion is hypokinetic. 7. Apical septum LV wall motion is hypokinetic. 8. [place] Hypokinesis. ANIMAL RESEARCHER: Lisa Ordaz [facility]
--- NOTE | 2017-05-10 10:49 | P.PN ---
Subjective This is a 61-year-old female patient being evaluated and examined today in the intensive care unit. Patient did come into the emergency room at [facility] with a diagnosis of a STEMI, she was then transferred to [facility]. She underwent a heart catheterization with stent placement. Patient to have stenosis to the proximal LAD. Patient did undergo pulmonary edema during this process and briefly required IV Lasix and was ultimately intubated. Currently the patient continues in the ICU on mechanical ventilation with propofol for sedation. 2 no longer is requiring any vasopressors. Original echo showed an EF of less than 20%. Repeat echo is pending. Patient is currently on assist control mode respiratory rate of 14 tidal volume of 450 FiO2 50% and PEEP of 5. Patient does have increased secretions in the last 24 hours requiring suctioning. Currently the patient is being weaned off sedation and will be trialed for possible weaning parameters. Patient is unable to follow commands currently however she does exhibit facial grimacing at times. Patient currently is on tube feedings for nutrition and is tolerating well. Patient has good urine output. Electrolyte replacements continue. Objective - Vital Signs Vital signs: Vital Signs Temp 99.1 F 05/10/17 09:00 Pulse 88 05/10/17 10:00 Resp 24 05/10/17 10:00 BP 106/42 05/10/17 10:00 Pulse Ox 100 05/10/17 10:00 Intake & Output 05/09/17 05/10/17 05/10/17 18:59 06:59 18:59 Intake Total 3453.781 1786.486 508 Output Total 725 743 505 Balance 2728.781 1043.486 3 Intake: IV 2678.5 1356.5 398 Magnesium Sulfate-D5w Pmx 200 1 gm In Dextrose/Water 1 100ml.bag @ 100 mls/hr IVPB Q1H [facility] Rx#: [id number] NS for pressure bag 141 144 48 Piperacillin-Tazobactam 3 87.5 12.5 .375 gm In Dextrose/Water 1 50ml.bag @ 12.5 mls/hr IVPB Q8HR [facility] Rx#: [id number] Sodium Chloride 0.9% 1, 1100 1200 350 000 ml @ 100 mls/hr IV . Q10H [facility] Rx#:[id number] Sodium Chloride 0.9% 1, 1000 000 ml @ 250 mls/hr IV . Q4H [facility] Rx#:[id number] Sodium Phosphate 10 mmol 150 In Sodium Chloride 0.9% 100 ml @ 50 mls/hr IVPB ONCE ONE Rx#:[id number] Intake, IV Titration 275.281 99.986 50 Amount Norepinephrin 16 mg-0.9% 130.892 Ns Pmx 16 mg In 250 ml @ Titrate IV .Q0M [facility] Rx#: [id number] Propofol 500 mg In Empty 144.389 99.986 50 Bag 1 bag @ Titrate IV . Q0M [facility] Rx#:[id number] Tube Feeding 390 330 60 Other 110 Output: Urine 725 743 505 Other: Voiding Method Indwelling Catheter Indwelling Catheter Indwelling Catheter # Bowel Movements 0 0 ABP, PAP, CO, CI - Last Documented Arterial Blood Pressure 154/50 Pulmonary Artery Pressure 32/25 Cardiac Output 5.4 Cardiac Index 3.5 - Exam GENERAL EXAM: Sedated, comfortable in no apparent distress. HEAD: Normocephalic. EYES: Normal reaction of pupils, equal size. NOSE: Clear with pink turbinates. THROAT: No erythema or exudates. NECK: No masses, no JVD. CHEST: No chest wall deformity. LUNGS: Equal air entry with no crackles, wheeze, rhonchi or dullness. CVS: S1 and S2 normal with no audible mumurs, regular rhythm. ABDOMEN: No hepatosplenomegaly, normal bowel sounds, no guarding or rigidity. Tolerating tube feeds well EXTREMITIES: No edema noted, pedal pulses palpable. SKIN: No rashes CENTRAL NERVOUS SYSTEM: Sedated with propofol and Ativan as needed. - Labs CBC & Chem 7: 05/10/17 04:50 05/10/17 04:50 Labs: Abnormal Lab Results - Last 24 Hours (Table) 05/10/17 05/10/17 05/10/17 Range/Units 01:19 04:50 04:50 RBC 2.97 L (3.80-5.40) m/uL Hgb 9.4 L (11.4-16.0) gm/dL Hct 29.4 L (34.0-46.0) % Plt Count 141 L (150-450) k/uL ABG O2 Saturation (94-97) % Chloride 113 H (98-107) mmol/L Creatinine 0.40 L (0.52-1.04) mg/dL Glucose 104 H (74-99) mg/dL POC Glucose (mg/dL) 102 H (75-99) mg/dL Calcium 7.7 L (8.4-10.2) mg/dL 05/10/17 05/10/17 Range/Units 05:25 07:06 RBC (3.80-5.40) m/uL Hgb (11.4-16.0) gm/dL Hct (34.0-46.0) % Plt Count (150-450) k/uL ABG O2 Saturation 98.0 H (94-97) % Chloride (98-107) mmol/L Creatinine (0.52-1.04) mg/dL Glucose (74-99) mg/dL POC Glucose (mg/dL) 102 H (75-99) mg/dL Calcium (8.4-10.2) mg/dL Microbiology - Last 24 Hours (Table) 05/07/17 04:42 Blood Culture - Preliminary Blood No Growth after 72 hours 05/07/17 21:05 Blood Culture - Preliminary Blood No Growth after 48 hours 05/06/17 18:30 Gram Stain - Final Sputum Sputum Culture - Final Assessment and Plan Plan: Assessment Acute systolic heart failure related to acute myocardial infarction and coronary artery disease Right lower lobe pneumonia Acute hypoxic respiratory failure secondary to pulmonary edema Sepsis associated with pneumonia Coronary artery disease and stenosis of the LAD status post stent placement Electrolyte imbalances Essential hypertension Nicotine dependence History of cerebral aneurysm with stent placements Plan Medications have been reviewed and will be continued as ordered. Continue with pulmonary hygiene, coughing and deep breathing exercises, and supportive care. Patient will be weaned down and patient will be trialed for weaning parameters. Continue with antibiotics. Supplemental oxygen to maintain oxygen saturations of 92% or better. Continue nebulizer treatments. GI and DVT prophylaxis. We will continue to monitor labs/results and adjust treatment as necessary. Further recommendations pending. I performed an examination of the patient and discussed their management with the nurse practitioner. I have reviewed the nurse practitioner's note and agree with the documented findings and plan of care.
[2017-05-10 11:16] LABS: % Iron Saturation 6.9 % (20-50)
[2017-05-10 11:59] LABS: Glucose,Whole Blood 104 mg/dL (75-99)
[2017-05-10 12:03] LABS: Glucose,Whole Blood 94 mg/dL (75-99)
[2017-05-10 13:37] LABS: ABG HCO3 23 mmol/L (21-25); ABG PCO2 31 mmHg (35-45); ABG PH 7.49 (7.35-7.45); ABG PO2 156 mmHg (83-108); ABG TCO2 24 mmol/L (19-24)
--- NOTE | 2017-05-10 16:33 | PN ---
Mrs. Thomas is a 61year-old female who presented with non-STEMI, underwent cardiac catheterization and coronary angioplasty and stenting of the LAD. She was intubated because of pulmonary edema and a question of pneumonia. She remains intubated, sedated. Her blood pressure is stable. She has evidence of hypertension. She is in sinus mechanism. Her urine output is good. Her filling pressures are stable. There is no evidence of tachy- or bradyarrhythmia. She continues to be at this time on: 1. Aspirin once a day. 2. Lipitor 80 mg daily. 3. Plavix 75 mg daily. 4. Losartan 50 mg daily. 5. Metoprolol tartrate 25 mg twice a day. 6. Spironolactone 25 mg daily. PHYSICAL EXAMINATION: Blood pressure running in the 160s with a heart rate in the 80s. HEAD: Normocephalic. LUNGS: Clear to auscultation anteriorly. HEART: Regular rate, rhythm. S1, S2. No S3. No rub. ABDOMEN: Soft. No organomegaly. EXTREMITIES: No edema. Lab data revealed pH 7.42, pCO2 of 35, pO2 of 101; hemoglobin 9.4 white blood cells 6.3. BUN and creatinine of 9 and 0.4. Her chest x-ray revealed minimal pleural effusion that is improving, with volume overload. IMPRESSION: 1. Status post chf-LC-iugvvjw-elevation myocardial infarction with possible transient cardiomyopathy. 2. Status post stenting of the left anterior descending coronary artery. 3. Probable pneumonia. 4. Prior history of smoking. 5. History of stroke. 6. Hypertension. RECOMMENDATIONS: I will increase the dose of her beta blade. Patient underwent repeat echocardiogram today, and I will review the results. Will follow her renal function closely. I am hopeful that we can start to wean her and extubate her soon.
[2017-05-10 17:11] LABS: Phosphorous 2.4 mg/dL (2.5-4.5); Potassium 3.6 mmol/L (3.5-5.1)
[2017-05-10] MEDS ORDERED: Phosphorus Replacement Protoco 1 EACH MISC MISCELLANE PRN (18:23)
[2017-05-10] MEDS ORDERED: SODIUM PHOSPHATE 10 MMOL in SODIUM CHLORIDE 0.9% 100 ML IVPB ONE (19:00)
[2017-05-10] MEDS ORDERED: POTASSIUM CHLORIDE ORAL LIQUID 40 MEQ/30 ML CUP NG-TUBE ONE (19:00)
[2017-05-10] MEDS: ATORVASTATIN 80 MG TAB PO SCH (23:13)
[2017-05-10] MEDS: METOPROLOL TARTRATE 50 MG TAB PO SCH (23:13)
[2017-05-11] MEDS: PROPOFOL 500 MG in EMPTY BAG 1 BAG IV SCH ×2 (00:47→06:19)
[2017-05-11] MEDS: SODIUM CHLORIDE 0.9% 1,000 ML IV SCH ×3 (00:47→19:23)
[2017-05-11 04:38] LABS: Glucose,Whole Blood 113 mg/dL (75-99)
[2017-05-11 05:37] LABS: Anion Gap 5 mmol/L; Blood Urea Nitrogen 7 mg/dL (7-17); Calcium 8.2 mg/dL (8.4-10.2); Carbon Dioxide 25 mmol/L (22-30); Chloride 113 mmol/L (98-107); Glucose 104 mg/dL (74-99); Magnesium 1.9 mg/dL (1.6-2.3); Non-African American GFR(MDRD) >60 (>60 ml/min/1.73 sqM); Phosphorous 3.5 mg/dL (2.5-4.5); Sodium 143 mmol/L (137-145)
[2017-05-11] MEDS: ALBUTEROL NEBULIZED 2.5 MG/3 ML INHALATION SCH ×3 (07:46→20:08)
[2017-05-11] MEDS: PIPERACILLIN-TAZOBACTAM 3.375 GM in DEXTROSE/WATER 1 50ML.BAG IVPB SCH ×2 (08:32→16:48)
[2017-05-11] MEDS: MAGNESIUM SULFATE-D5W PMX 1 GM in DEXTROSE/WATER 1 100ML.BAG IVPB SCH ×3 (08:32→16:36)
[2017-05-11] MEDS: FUROSEMIDE 10 MG/ML 4 ML VIAL IV SCH (08:33)
[2017-05-11] MEDS: HEPARIN SODIUM,PORCINE 5,000 UNIT/ML 1 ML VIAL SQ SCH ×2 (08:33→16:36)
[2017-05-11] MEDS: CLOPIDOGREL 75 MG TAB PO SCH (08:33)
[2017-05-11] MEDS: FAMOTIDINE 20 MG TAB PO SCH ×2 (08:33→21:49)
[2017-05-11] MEDS: ASPIRIN 81 MG CHEW PO SCH (08:33)
[2017-05-11] MEDS: CHLORHEXIDINE GLUCONATE 15 ML CUP MUCOUS MEM SCH (08:33)
[2017-05-11] MEDS: SPIRONOLACTONE 25 MG TAB PO SCH (08:34)
[2017-05-11] MEDS: LOSARTAN 50 MG TAB PO SCH (08:34)
[2017-05-11] MEDS: METOPROLOL TARTRATE 50 MG TAB PO SCH ×2 (08:34→21:49)
--- NOTE | 2017-05-11 09:17 | XR ---
EXAMINATION TYPE: XR chest 1V portable DATE OF EXAM: 05/11/2017 COMPARISON: May 10, 2017 6:15 AM HISTORY: Dyspnea, tube placement TECHNIQUE: Portable AP semiupright FINDINGS: ET tube tip superimposed over the mid trachea. NG tube port and tip superimposing the stoma ch. Right IJ Hyannis catheter tip midRPA. EKG leads. There is no evident pneumothorax. There is a fine reticular pattern of increased density over the brenden g bases bilaterally and symmetrically with occasional septal lines noted, findings suggest mild inter stitial phase pulmonary edema. The lungs are otherwise clear and well expanded bilaterally. Pleural spaces are negative. Cardiac and remainder of the mediastinal silhouette unremarkable, as are the bones and soft tissues. IMPRESSION: OVERALL IMPROVED LUNG INFLATION WHEN COMPARED TO THE PRIOR STUDY. THERE REMAINS RADIOGRAP HIC EVIDENCE OF MILD INTERSTITIAL PHASE PULMONARY EDEMA.
--- NOTE | 2017-05-11 09:28 | CDI ---
In responding to this query, please exercise your independent professional judgment. The [facility] Coding Staff and Clinical Documentation Specialists appreciate your assistance in clarifying documentation, maintaining compliance with coding guidelines, accurately documenting patients condition and capturing severity of illness. The fact that a question is asked does not imply that any particular answer is desired or expected. Communication forms are a method of clarifying documentation and are not made part of the Legal Health Record. Thank you in advance for your clarification. Last Revision, January 2016 Patti Krueger [address] [place] [address] Documentation Clarification Form Date: 05/11/2017 9:20:00 AM From: Lindsay Mariano CCS, CCDS Admit Date: 05/06/2017 3:41:00 PM Patient Name: Amy Thomas Visit Number: [id number] Discharge Date: Dr. Florencia Rodriguez: Myocardial infarction is documented in the cardiology progress notes as a Non- STEMI. Per the initial attending notes, the patient has had a Non-STEMI, now being documented as a STEMI, please clarify. Clinical Indicators: Patient was transferred emergently from the ER at [facility] to [facility] after presenting with chest pain & SOB. The patient's troponins were elevated with anterior T-wave inversions & very subtle ST-segment elevation. Advised emergent angiography. Troponin: 0.303, 0.537, 0.322 EKG Results: R 96 nsr Treatment: Emergent Left Heart Cath & PTCA w/stent to LAD. Consult: Cardiology, Pulmonary In order to capture the severity of condition and necessary documentation specificity, please clarify: Type of Infarction: STEMI NSTEMI Unable to determine Other Condition, please specify Site of myocardial injury, if known: Anterior wall Inferior wall Lateral wall Posterior wall Septal wall Other, please specify Unable to determine Please document in your progress notes and discharge summary in order to capture severity of illness and risk of mortality. Include clinical findings that support your diagnosis. FYI: Press F11 to launch patient chart Place X here if this finding has no clinical significance, is not applicable or if you are not able to provide any additional documentation. Thank You. JOSE
[2017-05-11 09:32] LABS: ABG Base Excess 1.9 mmol/L; ABG HCO3 25 mmol/L (21-25); ABG Oxygen Saturation 99.1 % (94-97); ABG PCO2 33 mmHg (35-45); ABG PH 7.49 (7.35-7.45); ABG PO2 124 mmHg (83-108); ABG TCO2 26 mmol/L (19-24)
--- NOTE | 2017-05-11 09:35 | CDI ---
In responding to this query, please exercise your independent professional judgment. The [facility] Coding Staff and Clinical Documentation Specialists appreciate your assistance in clarifying documentation, maintaining compliance with coding guidelines, accurately documenting patients condition and capturing severity of illness. The fact that a question is asked does not imply that any particular answer is desired or expected. Communication forms are a method of clarifying documentation and are not made part of the Legal Health Record. Thank you in advance for your clarification. Last Revision, January 2016 Patti Krueger [address] [place] [address] Documentation Clarification Form Date: 05/11/2017 9:29:00 AM From: Lindsay Mariano CCS, CCDS Admit Date: 05/06/2017 3:41:00 PM Patient Name: Amy Thomas Visit Number: [id number] Discharge Date: Dr. Cornel Carranza: Myocardial infarction is documented in the cardiology progress notes as a Non- STEMI. Clinical Indicators: Patient was transferred emergently from the ER at [facility] to [facility] after presenting with chest pain & SOB. The patient's troponins were elevated with anterior T-wave inversions & very subtle ST-segment elevation. Advised emergent angiography. Troponin: 0.303, 0.537, 0.322 EKG Results: R 96 nsr Treatment: Emergent Left Heart Cath & PTCA w/stent to LAD. Consult: Cardiology, Pulmonary In order to capture the severity of condition and necessary documentation specificity, please clarify: Type of Infarction: STEMI NSTEMI Unable to determine Other Condition, please specify Site of myocardial injury, if known: Anterior wall Inferior wall Lateral wall Posterior wall Septal wall Other, please specify Unable to determine Please document in your progress notes and discharge summary in order to capture severity of illness and risk of mortality. Include clinical findings that support your diagnosis. FYI: Press F11 to launch patient chart Place X here if this finding has no clinical significance, is not applicable or if you are not able to provide any additional documentation. Thank You. JOSE
--- NOTE | 2017-05-11 10:08 | PN ---
Mrs. Thomas is a 61-year-old female who presented with non-STEMI complicated by pulmonary edema requiring mechanical ventilation. She is awake on weaning trial. She is following commands. Hemodynamically, she is stable, on no pressor. There is no evidence of tachy or bradyarrhythmia. She underwent a repeat echocardiogram yesterday that showed an improvement in left ventricular systolic function. Ejection fraction is estimated at 40% to 45%. Her urine output is stable. She is tolerating tube feeding. She continues to be on aspirin, Lipitor 80 mg daily, Plavix 75 mg daily, Lasix 40 mg IV daily, losartan 50 mg daily, metoprolol tartrate 50 mg twice a day, spironolactone 25 mg daily. PHYSICAL EXAMINATION: Blood pressure 136/40 with a heart in the 80s, her PA pressure is 24/17. LUNGS: No wheezes anteriorly. HEART: Regular rate rhythm. S1, S2, no S3, no rub. ABDOMEN: Soft, nontender. EXTREMITIES: No edema. Lab data revealed BUN, creatinine of 7 and 0.46. Potassium 4.0. Her chest x-ray shows improvement in her infiltrate. IMPRESSION: 1. Status post, non-ST elevated myocardial infarction with stenting of the left anterior descending. 2. Ischemic cardiomyopathy, improving. 3. Respiratory failure, improving. 4. Pulmonary edema, resolving. 5. Prior history of smoking. 6. History of stroke. RECOMMENDATIONS: From the cardiac standpoint, I am hopeful that she will be extubated today. We will continue present therapy and depending on her blood pressure, adjustment of her medical regimen will be made.
[2017-05-11 15:47] LABS: Basophils % (A) 0 %; CH 31.7; CHCM 32.4; Eosinophils # (A) 0.2 k/uL (0-0.7); Eosinophils % (A) 2 %; HCT 29.9 % (34.0-46.0); HDW 2.38; HGB 9.6 gm/dL (11.4-16.0); Luc # (Auto) 0.22; Luc % (Auto) 3; Lymphocytes # (A) 1.4 k/uL (1.0-4.8); Lymphocytes % (A) 17 %; MCH 31.5 pg (25.0-35.0); MCV 98.4 fL (80.0-100.0); Mean Platelet Volume 8.7; Monocytes # (A) 0.7 k/uL (0-1.0); Monocytes % (A) 8 %; Neutrophils # (A) 5.6 k/uL (1.3-7.7); Neutrophils % (A) 70 %; RBC 3.04 m/uL (3.80-5.40); RDW 14.3 % (11.5-15.5); WBC 8.1 k/uL (3.8-10.6); WBC (Perox) 8.02
[2017-05-11] MEDS: NICOTINE 14MG/24HR PATCH TRANSDERM SCH (16:36)
--- NOTE | 2017-05-11 18:06 | P.PN ---
Subjective This is a 61-year-old female, patient of Dr. Davalos. She has a known past medical history of cerebral aneurysm with stent placement, hypertension, hyperlipidemia and nicotine dependence. Patient initially presented to the emergency room at [facility] with complaints of chest pain. Please note that the information has been taken from patient's chart. She is currently intubated and sedated in the ICU. Per cardiology note patient presented with chest pain and shortness of breath. There is mild elevation in her troponin and evidence of EKG changes. The reports anterior T-wave inversions and subtle ST segment elevation in V2 and V3. Therefore she was transferred to [facility] to undergo heart catheterization with stent placement. Heart catheterization was completed yesterday with evidence of stenosis in the proximal LAD patient underwent stent placement to this area. During that time patient developed pulmonary edema required briefly on IV Lasix and intubated and is currently in the ICU Objective - Vital Signs Vital signs: Vital Signs Temp 99.2 F 05/11/17 16:00 Pulse 89 05/11/17 17:00 Resp 23 05/11/17 17:00 BP 104/42 05/11/17 17:00 Pulse Ox 100 05/11/17 17:00 Intake & Output 05/10/17 05/11/17 05/11/17 18:59 06:59 18:59 Intake Total 9134.377 4417.136 1489.641 Output Total 1445 1530 2495 Balance -170.960 171.136 -1005.359 Weight 55.3 kg Intake: IV 894 1016.5 1312.0 Magnesium Sulfate-D5w Pmx 200 1 gm In Dextrose/Water 1 100ml.bag @ 100 mls/hr IVPB Q1H [facility] Rx#: [id number] NS for pressure bag 144 129 87 Piperacillin-Tazobactam 3 37.5 75.0 .375 gm In Dextrose/Water 1 50ml.bag @ 12.5 mls/hr IVPB Q8HR [facility] Rx#: [id number] Sodium Chloride 0.9% 1, 750 850 950 000 ml @ 100 mls/hr IV . Q10H [facility] Rx#:[id number] Intake, IV Titration 80.040 114.636 27.641 Amount Propofol 50 ml As IV .STK 17.2 -[facility] Rx#:[id number] Propofol 500 mg In Empty 80.040 97.436 27.641 Bag 1 bag @ Titrate IV . Q0M [facility] Rx#:[id number] Tube Feeding 300 450 90 Other 120 60 Output: Urine 1445 1530 2495 Other: Voiding Method Indwelling Catheter Indwelling Catheter Indwelling Catheter # Bowel Movements 0 0 ABP, PAP, CO, CI - Last Documented Arterial Blood Pressure 118/35 Pulmonary Artery Pressure 21/13 Cardiac Output 4.8 Cardiac Index 3.1 - Exam Patient intubated, sedated, scheduled for possible extubation today HEENT head normocephalic and atraumatic NECK is supple, no JVD no goiter and no adenopathy CHEST exam with scattered crackes in both lung chicas, no wheezing ABD is nontender no organomegaly Extremity exam reveals no edema no cyanosis or clubbing - Labs CBC & Chem 7: 05/11/17 15:18 05/11/17 05:00 Labs: Abnormal Lab Results - Last 24 Hours (Table) 05/11/17 05/11/17 05/11/17 Range/Units 04:37 05:00 09:20 RBC (3.80-5.40) m/uL Hgb (11.4-16.0) gm/dL Hct (34.0-46.0) % ABG pH 7.49 H (7.35-7.45) ABG pCO2 33 L (35-45) mmHg ABG pO2 124 H (83-108) mmHg ABG Total CO2 26 H (19-24) mmol/L ABG O2 Saturation 99.1 H (94-97) % Chloride 113 H (98-107) mmol/L Creatinine 0.46 L (0.52-1.04) mg/dL Glucose 104 H (74-99) mg/dL POC Glucose (mg/dL) 113 H (75-99) mg/dL Calcium 8.2 L (8.4-10.2) mg/dL 05/11/17 Range/Units 15:18 RBC 3.04 L (3.80-5.40) m/uL Hgb 9.6 L (11.4-16.0) gm/dL Hct 29.9 L (34.0-46.0) % ABG pH (7.35-7.45) ABG pCO2 (35-45) mmHg ABG pO2 (83-108) mmHg ABG Total CO2 (19-24) mmol/L ABG O2 Saturation (94-97) % Chloride (98-107) mmol/L Creatinine (0.52-1.04) mg/dL Glucose (74-99) mg/dL POC Glucose (mg/dL) (75-99) mg/dL Calcium (8.4-10.2) mg/dL Microbiology - Last 24 Hours (Table) 05/07/17 04:42 Blood Culture - Preliminary Blood No Growth after 96 hours 05/07/17 21:05 Blood Culture - Preliminary Blood No Growth after 72 hours Assessment and Plan Plan: 1. Chest pain with possible acute ST elevated myocardial infarction or Takotsubo syndrome: Patient underwent heart catheterization requiring stent to the LAD. Continue Plavix, aspirin, Lipitor, metoprolol. Cardiology following closely 2. Acute respiratory failure secondary to pulmonary edema requiring intubation , and mechanical ventilation, Pulmonary service following, possible extubation today 3. Acute pulmonary edema: Improved with Lasix. Currently off of Lasix 4. Hypomagnesemia patient is receiving magnesium supplement 5. Pneumonia: Pulmonary following. White count has normalized. Continue antibiotics. Continue Zosyn 6. Essential hypertension 7. Nicotine dependence 8. Hyperlipidemia 9. History of cerebral aneurysm with stent placement 10. Anemia: Hemoglobin 9.4. Check iron studies. DVT prophylaxis subcu heparin and GI prophylaxis Pepcid
--- NOTE | 2017-05-11 19:21 | PN ---
Critical Care Time Spent: 35 minutes. Ms. Amy Thomas is seen, evaluated, examined in the ICU earlier this morning. Patient has been on assist control mode switched to CPAP 5, pressure support of 5 and at that level, the patient was steady for a half hour. Weaning parameters were performed. Patient did well with CPAP and pressor support. Propofol was discontinued. Tube feed has been stopped. Patient was able to do a spontaneous tidal volume of 300 to 400 range with respiratory rate in mid 20s. She is arousable, opens eyes. Follows simple commands on propofol. Which is 20 mcg. Her vitals include blood pressure is 130/40, respiratory rate 16 to 18, heart rate is in mid 20s. HEENT EXAMINATION: Otherwise unremarkable. Nasal mucosa is congested. NECK: Supple without lymphadenopathy. Neck veins are prominent. No bruits present. LUNGS: Bilateral good air entry. A few crackles at bases HEART: Regular rate and rhythm. S1 and S2 audible. ABDOMEN: Soft. No rebound or rigidity. EXTREMITIES: +1 peripheral pulses. NEUROLOGICAL EXAMINATION: Otherwise, awake and alert. Labs reviewed. Medications reviewed as well. Chest x-ray performed today reviewed. Last x-ray earlier this morning revealed right lower lobe pneumonia, improving interstitial edema, overall improved and stable PA catheter. ET tube is stable. Other laboratory data reviewed. Arterial blood gases pH 7.49, pCO2 of 33, pO2 124, sodium is 140, potassium 4.0, BUN and creatinine are 7 and 0.46, glucose 113. Current medications include: 1. Maalox. 2. Ventolin. 3. Nebulizer 3 times a day. 4. Aspirin. 5. Atorvastatin. 6. Atropine. 7. Plavix. 8. Pepcid. 9. Lasix 40 mg IV daily. 10. Heparin 5000 units subcu q.8 hourly. 11. Ativan as needed. 12. Cozaar 50 mg daily. 13. Metoprolol 50 mg daily. 14. K-Mag-Phos Replacement protocol. 15. Nicotine patch. 16. Patient is also on Zosyn 3.375. 17. Scopolamine patch. 18. IV fluids for 100 mL an hour. 19. Also Aldactone 25 mg daily. 20. Ambien as needed. The cardiac output is up to 5.8, index is 3.1. IMPRESSION: 1. Severe sepsis, and right lower lobe pneumonia clinically and radiographically has improved. 2. Acute myocardial infarction with coronary artery disease stenosis of left anterior descending coronary artery, status post stent placement. 3. Congestive heart failure acute systolic heart failure with cardiac function continues to improve progressively. 4. Electrolyte imbalance. Patient has been on replacement protocol. 5. Non-ST elevation myocardial infarction. Repeat echocardiogram results are reviewed. Ejection fraction improved to 40%. 6. Other issues include prior history of stroke. 7. Dyslipidemia. 8. Hypertension. PLAN AND RECOMMENDATIONS: As above. Will proceed with extubation. We will discontinue the [place] catheter. We will remove the introducer as well. Obtain peripheral IV. Care plan discussed with the primary service as well as cardiovascular services and staff. Critical care time spent 35 minutes.
[2017-05-11] MEDS: ACETAMINOPHEN TAB 325 MG TAB PO PRN (21:49)
[2017-05-11] MEDS: ATORVASTATIN 80 MG TAB PO SCH (21:49)
[2017-05-11] MEDS: SCOPOLAMINE 1.5MG/72HR PATCH TRANSDERM SCH (21:49)
[2017-05-11] MEDS: ZOLPIDEM 5 MG TAB PO PRN (23:11)
[2017-05-12] MEDS: PIPERACILLIN-TAZOBACTAM 3.375 GM in DEXTROSE/WATER 1 50ML.BAG IVPB SCH ×3 (00:39→18:56)
[2017-05-12] MEDS: HEPARIN SODIUM,PORCINE 5,000 UNIT/ML 1 ML VIAL SQ SCH ×3 (00:39→18:56)
[2017-05-12 05:55] LABS: CH 31.5; CHCM 33.3; HDW 2.57; HGB 8.9 gm/dL (11.4-16.0); MCH 31.3 pg (25.0-35.0); MCHC 32.9 g/dL (31.0-37.0); Mean Platelet Volume 8.9; RBC 2.84 m/uL (3.80-5.40); WBC 6.4 k/uL (3.8-10.6)
[2017-05-12 06:10] LABS: Blood Urea Nitrogen 8 mg/dL (7-17); Carbon Dioxide 25 mmol/L (22-30); Chloride 112 mmol/L (98-107); Glucose 86 mg/dL (74-99); Non-African American GFR(MDRD) >60 (>60 ml/min/1.73 sqM); Phosphorous 3.3 mg/dL (2.5-4.5); Potassium 3.4 mmol/L (3.5-5.1)
[2017-05-12 06:11] LABS: Anion Gap 5 mmol/L; Sodium 142 mmol/L (137-145)
[2017-05-12] MEDS ORDERED: BENZOCAINE/MENTHOL LOZENG 1 EACH LOZENGE MUCOUS MEM PRN (07:11)
[2017-05-12] MEDS: ACETAMINOPHEN TAB 325 MG TAB PO PRN ×2 (07:15→15:21)
[2017-05-12] MEDS: ALBUTEROL NEBULIZED 2.5 MG/3 ML INHALATION SCH ×3 (07:41→19:47)
[2017-05-12] MEDS: CLOPIDOGREL 75 MG TAB PO SCH (07:56)
[2017-05-12] MEDS: LOSARTAN 50 MG TAB PO SCH (07:56)
[2017-05-12] MEDS: METOPROLOL TARTRATE 50 MG TAB PO SCH ×2 (07:56→21:11)
[2017-05-12] MEDS: FUROSEMIDE 10 MG/ML 4 ML VIAL IV SCH (07:56)
[2017-05-12] MEDS: POTASSIUM CHLORIDE ER 20 MEQ TAB.ER PO SCH ×3 (07:57→12:48)
[2017-05-12] MEDS: NICOTINE 14MG/24HR PATCH TRANSDERM SCH (07:57)
[2017-05-12] MEDS: ASPIRIN 81 MG CHEW PO SCH (07:57)
[2017-05-12] MEDS: FAMOTIDINE 20 MG TAB PO SCH ×2 (07:57→21:12)
[2017-05-12] MEDS: SPIRONOLACTONE 25 MG TAB PO SCH (08:24)
--- NOTE | 2017-05-12 10:03 | P.PN ---
Subjective This is a 61-year-old female patient being evaluated and examined today in the intensive care unit. Patient did come into the emergency room at [facility] with a diagnosis of a NSTEMI, she was then transferred to [facility]. She underwent a heart catheterization with stent placement. Patient to have stenosis to the proximal LAD. Patient did undergo pulmonary edema during this process and briefly required IV Lasix and was ultimately intubated. Patient was successfully extubated yesterday. Patient is currently on room air denies any shortness of breath. Occasional dry cough is present. Patient has good urine output. Electrolyte replacements continue. Patient is currently resting up in bedside chair eating breakfast has a good appetite. Patient's ejection fraction has improved to 40%. Objective - Vital Signs Vital signs: Vital Signs Temp 98 F 05/12/17 08:00 Pulse 71 05/12/17 09:00 Resp 81 H 05/12/17 09:00 BP 119/46 05/12/17 09:00 Pulse Ox 95 05/12/17 09:00 Intake & Output 05/11/17 05/12/17 05/12/17 18:59 06:59 18:59 Intake Total 5114.168 6970.5 276 Output Total 2555 506 1285 Balance -752.574 6568.5 -1009 Weight 54.9 kg Intake: IV 1427.5 1328.5 276 Magnesium Sulfate-D5w Pmx 200 1 gm In Dextrose/Water 1 100ml.bag @ 100 mls/hr IVPB Q1H [facility] Rx#: [id number] NS for pressure bag 90 66 6 Piperacillin-Tazobactam 3 87.5 62.5 50 .375 gm In Dextrose/Water 1 50ml.bag @ 12.5 mls/hr IVPB Q8HR [facility] Rx#: [id number] Sodium Chloride 0.9% 1, 1050 1200 220 000 ml @ 20 mls/hr IV . Q24H [facility] Rx#:[id number] Intake, IV Titration 27.641 Amount Propofol 500 mg In Empty 27.641 Bag 1 bag @ Titrate IV . Q0M [facility] Rx#:[id number] Oral 360 Tube Feeding 90 Other 60 Output: Urine 2555 506 1285 Other: Voiding Method Indwelling Catheter Indwelling Catheter Indwelling Catheter # Bowel Movements 1 ABP, PAP, CO, CI - Last Documented Arterial Blood Pressure 100/82 Pulmonary Artery Pressure 21/13 Cardiac Output 4.8 Cardiac Index 3.1 - Exam GENERAL EXAM: Alert active signs and symptoms of distress. HEAD: Normocephalic. EYES: Normal reaction of pupils, equal size. NOSE: Clear with pink turbinates. THROAT: No erythema or exudates. NECK: No masses, no JVD. CHEST: No chest wall deformity. LUNGS: Equal air entry with no crackles, wheeze, rhonchi or dullness. CVS: S1 and S2 normal with no audible mumurs, regular rhythm. ABDOMEN: No hepatosplenomegaly, normal bowel sounds, no guarding or rigidity. Tolerating tube feeds well EXTREMITIES: No edema noted, pedal pulses palpable. SKIN: No rashes CENTRAL NERVOUS SYSTEM: Moves all extremities no focal deficit - Labs CBC & Chem 7: 05/12/17 05:43 05/12/17 05:43 Labs: Abnormal Lab Results - Last 24 Hours (Table) 05/11/17 05/12/17 05/12/17 Range/Units 15:18 05:43 05:43 RBC 3.04 L 2.84 L (3.80-5.40) m/uL Hgb 9.6 L 8.9 L (11.4-16.0) gm/dL Hct 29.9 L 27.0 L (34.0-46.0) % Potassium 3.4 L (3.5-5.1) mmol/L Chloride 112 H (98-107) mmol/L Creatinine 0.44 L (0.52-1.04) mg/dL Calcium 8.0 L (8.4-10.2) mg/dL Microbiology - Last 24 Hours (Table) 05/07/17 04:42 Blood Culture - Preliminary Blood No Growth after 120 hours 05/07/17 21:05 Blood Culture - Preliminary Blood No Growth after 96 hours Assessment and Plan Plan: Assessment Acute systolic heart failure related to acute myocardial infarction and coronary artery disease Right lower lobe pneumonia Acute hypoxic respiratory failure secondary to pulmonary edema Sepsis associated with pneumonia Coronary artery disease and stenosis of the LAD status post stent placement Electrolyte imbalances Essential hypertension Nicotine dependence History of cerebral aneurysm with stent placements Plan Patient could be downgraded from the intensive care unit today. Medications have been reviewed and will be continued as ordered. Continue with pulmonary hygiene, coughing and deep breathing exercises, and supportive care. Continue with antibiotics. Supplemental oxygen to maintain oxygen saturations of 92% or better. Continue nebulizer treatments. Initiate and encourage incentive spirometer. Continue electrolyte replacements. GI and DVT prophylaxis. We will continue to monitor labs/results and adjust treatment as necessary. Further recommendations pending. I performed an examination of the patient and discussed their management with the nurse practitioner. I have reviewed the nurse practitioner's note and agree with the documented findings and plan of care.
--- NOTE | 2017-05-12 11:40 | PN ---
Ms. Thomas is a 61-year-old female who presented with acute non-ST segment elevation myocardial infarction, underwent cardiac catheterization and stenting of the LAD, had respiratory failure, requiring mechanical ventilation with pulmonary edema. She is extubated, feeling much better, sitting up in the chair. Her breathing is stable. She is denying any chest pain. No dizziness. No palpitation. She is feeling stronger. She has a good urine output without any issues. She continues at this time to be on aspirin, Lipitor 80 mg daily, Plavix 75 mg daily, Lasix IV 40 mg daily, Cozaar 50 mg daily, metoprolol tartrate 50 mg twice a day and Aldactone 25 mg daily. PHYSICAL EXAMINATION: Blood pressure 119/50 with a heart rate in the 70s. LUNGS: No wheezes. HEART: Regular rate and rhythm. S1, S2, no S3, no rub appreciated. ABDOMEN: Soft and nontender. EXTREMITIES: No edema. Lab data revealed a hemoglobin of 8.9. BUN and creatinine of 8 and 0.44. Potassium 3.4. Magnesium of 2.0. IMPRESSION: 1. Status post, non-ST elevation myocardial infarction and stenting of the proximal left anterior descending coronary artery. 2. Ischemic cardiomyopathy, improving. 3. Respiratory failure with pulmonary edema, improving. 4. Prior history of smoking. 5. History of cerebrovascular accident. RECOMMENDATION: From the cardiac standpoint, I will cut down the IV Lasix dose. I will replace her potassium. Increase her level of activity. She is stable. I would expect she should be able to transfer to the telemetry floor today and depending on her progress, further recommendation will be made.
--- NOTE | 2017-05-12 13:11 | P.PN ---
Subjective This is a 61-year-old female, patient of Dr. Davalos. She has a known past medical history of cerebral aneurysm with stent placement, hypertension, hyperlipidemia and nicotine dependence. Patient initially presented to the emergency room at [facility] with complaints of chest pain. Please note that the information has been taken from patient's chart. She is currently intubated and sedated in the ICU. Per cardiology note patient presented with chest pain and shortness of breath. There is mild elevation in her troponin and evidence of EKG changes. The reports anterior T-wave inversions and subtle ST segment elevation in V2 and V3. Therefore she was transferred to [facility] to undergo heart catheterization with stent placement. Heart catheterization was completed yesterday with evidence of stenosis in the proximal LAD patient underwent stent placement to this area. During that time patient developed pulmonary edema required briefly on IV Lasix. Patient was extubated yesterday, she is tolerating well, she will be transferred out of ICU today Objective - Vital Signs Vital signs: Vital Signs Temp 98.4 F 05/12/17 12:00 Pulse 82 05/12/17 13:00 Resp 16 05/12/17 13:00 BP 135/52 05/12/17 13:00 Pulse Ox 95 05/12/17 13:00 Intake & Output 05/11/17 05/12/17 05/12/17 18:59 06:59 18:59 Intake Total 0366.760 1342.5 336 Output Total 2555 506 1802 Balance -627.837 4994.5 -1466 Weight 54.9 kg Intake: IV 1427.5 1328.5 336 Magnesium Sulfate-D5w Pmx 200 1 gm In Dextrose/Water 1 100ml.bag @ 100 mls/hr IVPB Q1H [facility] Rx#: [id number] NS for pressure bag 90 66 6 Piperacillin-Tazobactam 3 87.5 62.5 50 .375 gm In Dextrose/Water 1 50ml.bag @ 12.5 mls/hr IVPB Q8HR [facility] Rx#: [id number] Sodium Chloride 0.9% 1, 1050 1200 280 000 ml @ 20 mls/hr IV . Q24H [facility] Rx#:[id number] Intake, IV Titration 27.641 Amount Propofol 500 mg In Empty 27.641 Bag 1 bag @ Titrate IV . Q0M [facility] Rx#:[id number] Oral 360 Tube Feeding 90 Other 60 Output: Urine 2555 506 1802 Other: Voiding Method Indwelling Catheter Indwelling Catheter Indwelling Catheter # Bowel Movements 1 ABP, PAP, CO, CI - Last Documented Arterial Blood Pressure 100/82 Pulmonary Artery Pressure 21/13 Cardiac Output 4.8 Cardiac Index 3.1 - Exam Patient alert and oriented times three, in no distress HEENT head normocephalic and atraumatic NECK is supple, no JVD no goiter and no adenopathy CHEST exam with scattered crackes in both lung chicas, no wheezing ABD is nontender no organomegaly Extremity exam reveals no edema no cyanosis or clubbing - Labs CBC & Chem 7: 05/12/17 05:43 05/12/17 05:43 Labs: Abnormal Lab Results - Last 24 Hours (Table) 05/11/17 05/12/17 05/12/17 Range/Units 15:18 05:43 05:43 RBC 3.04 L 2.84 L (3.80-5.40) m/uL Hgb 9.6 L 8.9 L (11.4-16.0) gm/dL Hct 29.9 L 27.0 L (34.0-46.0) % Potassium 3.4 L (3.5-5.1) mmol/L Chloride 112 H (98-107) mmol/L Creatinine 0.44 L (0.52-1.04) mg/dL Calcium 8.0 L (8.4-10.2) mg/dL Microbiology - Last 24 Hours (Table) 05/07/17 04:42 Blood Culture - Preliminary Blood No Growth after 120 hours 05/07/17 21:05 Blood Culture - Preliminary Blood No Growth after 96 hours Assessment and Plan Plan: 1. Chest pain with possible acute ST elevated myocardial infarction Patient underwent heart catheterization requiring stent to the LAD. Continue Plavix, aspirin, Lipitor, metoprolol. Cardiology following closely 2. Acute respiratory failure secondary to pulmonary edema requiring intubation , and mechanical ventilation, Pulmonary service following, patient extubated yesterday 3. Acute pulmonary edema: Improved with Lasix. Currently off of Lasix 4. Hypomagnesemia patient is receiving magnesium supplement 5. Pneumonia: Pulmonary following. White count has normalized. Continue antibiotics. Continue Zosyn 6. Essential hypertension 7. Nicotine dependence 8. Hyperlipidemia 9. History of cerebral aneurysm with stent placement 10. Anemia: Hemoglobin 9.4. Check iron studies. DVT prophylaxis subcu heparin and GI prophylaxis Pepcid
[2017-05-12] MEDS: SODIUM CHLORIDE 0.9% 1,000 ML IV SCH ×2 (18:50→21:11)
[2017-05-12] MEDS: ZOLPIDEM 5 MG TAB PO PRN (21:11)
[2017-05-12] MEDS: ATORVASTATIN 80 MG TAB PO SCH (21:12)
[2017-05-13] MEDS: PIPERACILLIN-TAZOBACTAM 3.375 GM in DEXTROSE/WATER 1 50ML.BAG IVPB SCH ×4 (00:53→23:07)
[2017-05-13] MEDS: HEPARIN SODIUM,PORCINE 5,000 UNIT/ML 1 ML VIAL SQ SCH ×4 (00:53→23:07)
[2017-05-13] MEDS: ACETAMINOPHEN TAB 325 MG TAB PO PRN ×2 (01:05→11:40)
[2017-05-13] MEDS: SODIUM CHLORIDE 0.9% 1,000 ML IV SCH ×2 (01:39→15:37)
[2017-05-13 07:35] LABS: Anion Gap 7 mmol/L; Blood Urea Nitrogen 8 mg/dL (7-17); Calcium 8.5 mg/dL (8.4-10.2); Carbon Dioxide 23 mmol/L (22-30); Chloride 110 mmol/L (98-107); Glucose 82 mg/dL (74-99); Non-African American GFR(MDRD) >60 (>60 ml/min/1.73 sqM); Potassium 3.7 mmol/L (3.5-5.1); Sodium 140 mmol/L (137-145)
[2017-05-13] MEDS ORDERED: Potassium Replacement Protocol 1 EACH MISC MISCELLANE PRN (07:49)
[2017-05-13] MEDS: ALBUTEROL NEBULIZED 2.5 MG/3 ML INHALATION SCH ×3 (07:50→19:32)
[2017-05-13] MEDS ORDERED: POTASSIUM CHLORIDE ER 20 MEQ TAB.ER PO SCH (08:00)
[2017-05-13] MEDS: FUROSEMIDE 10 MG/ML 2 ML VIAL IV SCH (09:10)
[2017-05-13] MEDS: ASPIRIN 81 MG CHEW PO SCH (09:10)
[2017-05-13] MEDS: FAMOTIDINE 20 MG TAB PO SCH ×2 (09:10→20:16)
[2017-05-13] MEDS: NICOTINE 14MG/24HR PATCH TRANSDERM SCH (09:10)
[2017-05-13] MEDS: METOPROLOL TARTRATE 50 MG TAB PO SCH ×2 (09:10→20:16)
[2017-05-13] MEDS: CLOPIDOGREL 75 MG TAB PO SCH (09:10)
[2017-05-13] MEDS: SPIRONOLACTONE 25 MG TAB PO SCH (09:19)
[2017-05-13] MEDS: LOSARTAN 50 MG TAB PO SCH (09:19)
[2017-05-13 11:02] VITALS: BMI 18.8
--- NOTE | 2017-05-13 11:05 | P.PN ---
Subjective This is a 61-year-old female patient being evaluated and examined today in selective care unit. Patient did come into the emergency room at [facility] with a diagnosis of a NSTEMI, she was then transferred to [facility]. She underwent a heart catheterization with stent placement. Patient to have stenosis to the proximal LAD. Patient did undergo pulmonary edema during this process and briefly required IV Lasix and was ultimately intubated. Patient was successfully extubated and downgraded from the intensive care unit. Upon examination the patient is sitting up in bed on room air denies any shortness of breath. Occasional dry cough is present. Patient has good urine output. Electrolyte replacements continue. Patient's ejection fraction has improved to 40%. Patient's appetite continues to be good. Objective - Vital Signs Vital signs: Vital Signs Temp 97.1 F L 05/13/17 08:55 Pulse 90 05/13/17 08:55 Resp 20 05/13/17 08:55 BP 135/65 05/13/17 08:55 Pulse Ox 96 05/13/17 08:55 Intake & Output 05/12/17 05/13/17 05/13/17 18:59 06:59 18:59 Intake Total 336 340 Output Total 1802 Balance -1466 340 Weight 51.4 kg Intake: IV 336 340 NS for pressure bag 6 Piperacillin-Tazobactam 3 50 100 .375 gm In Dextrose/Water 1 50ml.bag @ 12.5 mls/hr IVPB Q8HR [facility] Rx#: [id number] Sodium Chloride 0.9% 1, 280 240 000 ml @ 20 mls/hr IV . Q24H [facility] Rx#:[id number] Output: Urine 1802 Other: Voiding Method Toilet Toilet # Voids 2 ABP, PAP, CO, CI - Last Documented Arterial Blood Pressure 100/82 Pulmonary Artery Pressure 21/13 Cardiac Output 4.8 Cardiac Index 3.1 - Exam GENERAL EXAM: Alert active signs and symptoms of distress. HEAD: Normocephalic. EYES: Normal reaction of pupils, equal size. NOSE: Clear with pink turbinates. THROAT: No erythema or exudates. NECK: No masses, no JVD. CHEST: No chest wall deformity. LUNGS: Equal air entry with no crackles, wheeze, rhonchi or dullness. Bases diminished CVS: S1 and S2 normal with no audible mumurs, regular rhythm. ABDOMEN: No hepatosplenomegaly, normal bowel sounds, no guarding or rigidity. Tolerating tube feeds well EXTREMITIES: No edema noted, pedal pulses palpable. SKIN: No rashes CENTRAL NERVOUS SYSTEM: Moves all extremities no focal deficit - Labs CBC & Chem 7: 05/12/17 05:43 05/13/17 06:36 Labs: Abnormal Lab Results - Last 24 Hours (Table) 05/13/17 Range/Units 06:36 Chloride 110 H (98-107) mmol/L Creatinine 0.48 L (0.52-1.04) mg/dL Microbiology - Last 24 Hours (Table) 05/07/17 04:42 Blood Culture - Final Blood No Growth after 144 hours 05/07/17 21:05 Blood Culture - Preliminary Blood No Growth after 120 hours Assessment and Plan Plan: Assessment Acute systolic heart failure related to acute myocardial infarction and coronary artery disease Right lower lobe pneumonia Acute hypoxic respiratory failure secondary to pulmonary edema Sepsis associated with pneumonia Coronary artery disease and stenosis of the LAD status post stent placement Electrolyte imbalances Essential hypertension Nicotine dependence History of cerebral aneurysm with stent placements Plan Patient could be cleared for discharge from pulmonary standpoint in the near future. Medications have been reviewed and will be continued as ordered. Continue with pulmonary hygiene, coughing and deep breathing exercises, and supportive care. Continue with antibiotics. Supplemental oxygen to maintain oxygen saturations of 92% or better. Continue nebulizer treatments. Initiate and encourage incentive spirometer. Continue electrolyte replacements. Continue with cardiology consult and recommendations. GI and DVT prophylaxis. We will continue to monitor labs/results and adjust treatment as necessary. Further recommendations pending. I performed an examination of the patient and discussed their management with the nurse practitioner. I have reviewed the nurse practitioner's note and agree with the documented findings and plan of care.
--- NOTE | 2017-05-13 12:02 | P.PN ---
Subjective This is a 61-year-old female, patient of Dr. Davalos. She has a known past medical history of cerebral aneurysm with stent placement, hypertension, hyperlipidemia and nicotine dependence. Patient initially presented to the emergency room at [facility] with complaints of chest pain. Please note that the information has been taken from patient's chart. She is currently intubated and sedated in the ICU. Per cardiology note patient presented with chest pain and shortness of breath. There is mild elevation in her troponin and evidence of EKG changes. The reports anterior T-wave inversions and subtle ST segment elevation in V2 and V3. Therefore she was transferred to [facility] to undergo heart catheterization with stent placement. Heart catheterization was completed yesterday with evidence of stenosis in the proximal LAD patient underwent stent placement to this area. During that time patient developed pulmonary edema required briefly on IV Lasix and intubated and is currently in the ICU 05/10/2017 patient remains in the ICU and intubated. She is currently off of pressors. Cardiology and pulmonary service following. Echo had shown an EF of less than 20% with wall motion abnormality and and mild mitral regurgitation and tricuspid regurgitation. She is scheduled for repeat echo today. 05/13/2017 patient was transferred out of the ICU yesterday. She is sitting in bed. Reports improvement in her breathing. Denies any chest pain. Denies any nausea or vomiting. Reports having regular bowel movements. Denies any difficult urinating. She is asking when she will be discharged home Objective - Vital Signs Vital signs: Vital Signs Temp 97.1 F L 05/13/17 08:55 Pulse 90 05/13/17 08:55 Resp 20 05/13/17 08:55 BP 135/65 05/13/17 08:55 Pulse Ox 96 05/13/17 08:55 Intake & Output 05/12/17 05/13/17 05/13/17 18:59 06:59 18:59 Intake Total 336 340 Output Total 1802 Balance -1466 340 Weight 51.4 kg 51.4 kg Intake: IV 336 340 NS for pressure bag 6 Piperacillin-Tazobactam 3 50 100 .375 gm In Dextrose/Water 1 50ml.bag @ 12.5 mls/hr IVPB Q8HR [facility] Rx#: [id number] Sodium Chloride 0.9% 1, 280 240 000 ml @ 20 mls/hr IV . Q24H [facility] Rx#:[id number] Output: Urine 1802 Other: Voiding Method Toilet Toilet # Voids 2 ABP, PAP, CO, CI - Last Documented Arterial Blood Pressure 100/82 Pulmonary Artery Pressure 21/13 Cardiac Output 4.8 Cardiac Index 3.1 - Exam Head normocephalic Neck supple Lungs clear to auscultation bilaterally no wheezing or crackles Heart regular rate and rhythm S1-S2, no rub or gallop Abdomen is soft nontender nondistended positive bowel sounds no hepatosplenomegaly Extremities no edema Neuro intubated and sedated - Labs CBC & Chem 7: 05/12/17 05:43 05/13/17 06:36 Labs: Abnormal Lab Results - Last 24 Hours (Table) 05/13/17 Range/Units 06:36 Chloride 110 H (98-107) mmol/L Creatinine 0.48 L (0.52-1.04) mg/dL Microbiology - Last 24 Hours (Table) 05/07/17 04:42 Blood Culture - Final Blood No Growth after 144 hours 05/07/17 21:05 Blood Culture - Preliminary Blood No Growth after 120 hours Assessment and Plan Plan: 1. Chest pain with possible acute ST elevated myocardial infarction: Patient underwent heart catheterization requiring stent to the LAD. Continue Plavix, aspirin, Lipitor, metoprolol. Cardiology following closely 2. Acute respiratory failure secondary to pulmonary edema requiring mechanical intubation: Patient tolerated extubation 3. Acute pulmonary edema with acute systolic CHF exacerbation: Continue IV Lasix. Dose was decreased by cardiology yesterday. We'll await their further recommendations 4. Hypomagnesemia patient is receiving magnesium supplement 5. Pneumonia: Pulmonary following. White count has normalized. Continue antibiotics. Continue Zosyn 6. Essential hypertension 7. Nicotine dependence 8. Hyperlipidemia 9. History of cerebral aneurysm with stent placement 10. Iron deficiency anemia. Patient had iron level of 13. Start ferrous sulfate 325 mg twice a day. Awaiting CBC today 11. Consult physical therapy. Encouraged increase activity DVT prophylaxis subcu heparin and GI prophylaxis Pepcid I performed an examination of the patient and discussed their management with the physician Truss Builder. I have reviewed the Physician Truss Builder's notes and agree with the documented findings and plan of care
[2017-05-13 12:14] LABS: Basophils % (A) 0 %; CH 31.3; CHCM 32.6; Eosinophils # (A) 0.2 k/uL (0-0.7); Eosinophils % (A) 3 %; HCT 31.1 % (34.0-46.0); HDW 2.48; HGB 10.3 gm/dL (11.4-16.0); Luc # (Auto) 0.24; Luc % (Auto) 3; Lymphocytes # (A) 1.3 k/uL (1.0-4.8); Lymphocytes % (A) 19 %; MCH 31.8 pg (25.0-35.0); MCHC 32.9 g/dL (31.0-37.0); MCV 96.7 fL (80.0-100.0); Mean Platelet Volume 8.9; Monocytes # (A) 0.7 k/uL (0-1.0); Monocytes % (A) 9 %; Neutrophils # (A) 4.6 k/uL (1.3-7.7); Neutrophils % (A) 65 %; RBC 3.22 m/uL (3.80-5.40); RDW 14.1 % (11.5-15.5); WBC (Perox) 7.51
[2017-05-13] MEDS ORDERED: ALPRAZolam 0.25 MG TAB PO PRN (13:31)
[2017-05-13] MEDS ORDERED: diphenhydrAMINE 25 MG CAP PO PRN (13:32)
[2017-05-13] MEDS ORDERED: methylPREDNISolone SOD SUCCI 125 MG/2 ML VIAL IV STA (13:33)
--- NOTE | 2017-05-13 14:48 | P.PN ---
Subjective Principal diagnosis: Non-STEMI This is a 61-year-old female who presented to the hospital with a non- ST elevation myocardial infarction. She underwent angioplasty with stent placement of the LAD. Patient was seen and examined this morning, denies any chest pain, breathing stable. Blood pressure 124/40, heart rate in the 80s. She has been up ambulating without any difficulty. Objective - Vital Signs Vital signs: Vital Signs Temp 97.1 F L 05/13/17 11:05 Pulse 84 05/13/17 13:35 Resp 20 05/13/17 11:05 BP 125/48 05/13/17 11:05 Pulse Ox 97 05/13/17 11:05 Intake & Output 05/12/17 05/13/17 05/13/17 18:59 06:59 18:59 Intake Total 336 340 Output Total 1802 Balance -1466 340 Weight 51.4 kg 51.4 kg Intake: IV 336 340 NS for pressure bag 6 Piperacillin-Tazobactam 3 50 100 .375 gm In Dextrose/Water 1 50ml.bag @ 12.5 mls/hr IVPB Q8HR [facility] Rx#: [id number] Sodium Chloride 0.9% 1, 280 240 000 ml @ 20 mls/hr IV . Q24H [facility] Rx#:[id number] Output: Urine 1802 Other: Voiding Method Toilet Toilet # Voids 2 ABP, PAP, CO, CI - Last Documented Arterial Blood Pressure 100/82 Pulmonary Artery Pressure 21/13 Cardiac Output 4.8 Cardiac Index 3.1 - Exam PHYSICAL EXAMINATION: HEENT: Head is atraumatic, normocephalic. Pupils equal, round. Neck is supple. There is no elevated jugular venous pressure. HEART EXAMINATION: Heart S1, S2 normal. No murmur or gallop heard. CHEST EXAMINATION: Lungs are clear to auscultation and precussion. No chest wall tenderness is noted on palpation or with deep breathing. ABDOMEN: Soft, nontender. Bowel sounds are heard. No organomegaly noted. EXTREMITIES: 2+ peripheral pulses with no evidence of peripheral edema and no calf tenderness noted. NEUROLOGIC patient is awake, alert and oriented -3. . - Labs CBC & Chem 7: 05/13/17 06:36 05/13/17 11:28 Labs: Abnormal Lab Results - Last 24 Hours (Table) 05/13/17 05/13/17 Range/Units 06:36 06:36 RBC 3.22 L (3.80-5.40) m/uL Hgb 10.3 L (11.4-16.0) gm/dL Hct 31.1 L (34.0-46.0) % Chloride 110 H (98-107) mmol/L Creatinine 0.48 L (0.52-1.04) mg/dL Microbiology - Last 24 Hours (Table) 05/07/17 04:42 Blood Culture - Final Blood No Growth after 144 hours 05/07/17 21:05 Blood Culture - Preliminary Blood No Growth after 120 hours Assessment and Plan (1) NSTEMI (non-ST elevated myocardial infarction) Status: Acute (2) Presence of stent in LAD coronary artery Status: Acute (3) Ischemic cardiomyopathy Status: Acute (4) Systolic CHF, acute on chronic Status: Acute (5) History of CVA (cerebrovascular accident) Status: Acute Plan: From cardiology's perspective, we will continue current medications. Patient may be able to be discharged home possibly in the next 24 hours if stable. DNP note has been reviewed, I agree with a documented findings and plan of care. Patient was seen and examined.
[2017-05-13] MEDS: FERROUS SULFATE 325 MG TAB PO SCH (20:16)
[2017-05-13] MEDS: ATORVASTATIN 80 MG TAB PO SCH (20:16)
[2017-05-14 06:47] LABS: Basophils % (A) 0 %; CH 31.4; CHCM 33.5; Eosinophils # (A) 0.1 k/uL (0-0.7); Eosinophils % (A) 1 %; HCT 32.8 % (34.0-46.0); HDW 2.47; HGB 10.8 gm/dL (11.4-16.0); Luc # (Auto) 0.35; Luc % (Auto) 3; Lymphocytes # (A) 1.9 k/uL (1.0-4.8); Lymphocytes % (A) 19 %; MCH 31.1 pg (25.0-35.0); MCV 94.4 fL (80.0-100.0); Mean Platelet Volume 8.2; Monocytes # (A) 0.9 k/uL (0-1.0); Monocytes % (A) 9 %; Neutrophils # (A) 7.1 k/uL (1.3-7.7); Neutrophils % (A) 69 %; RBC 3.48 m/uL (3.80-5.40); WBC 10.4 k/uL (3.8-10.6); WBC (Perox) 11.28
[2017-05-14 07:00] LABS: ALT 91 U/L (9-52); AST 93 U/L (14-36); Alkaline Phosphatase 79 U/L (38-126); Anion Gap 10 mmol/L; Blood Urea Nitrogen 11 mg/dL (7-17); Calcium 8.8 mg/dL (8.4-10.2); Carbon Dioxide 25 mmol/L (22-30); Chloride 106 mmol/L (98-107); Glucose 103 mg/dL (74-99); Non-African American GFR(MDRD) >60 (>60 ml/min/1.73 sqM); Potassium 3.8 mmol/L (3.5-5.1); Sodium 141 mmol/L (137-145); Total Bilirubin 0.7 mg/dL (0.2-1.3); Total Protein 5.7 g/dL (6.3-8.2)
[2017-05-14] MEDS: PIPERACILLIN-TAZOBACTAM 3.375 GM in DEXTROSE/WATER 1 50ML.BAG IVPB SCH (08:36)
[2017-05-14] MEDS: CLOPIDOGREL 75 MG TAB PO SCH (08:37)
[2017-05-14] MEDS: FERROUS SULFATE 325 MG TAB PO SCH (08:37)
[2017-05-14] MEDS: ASPIRIN 81 MG CHEW PO SCH (08:37)
[2017-05-14] MEDS: FAMOTIDINE 20 MG TAB PO SCH (08:37)
[2017-05-14] MEDS: LOSARTAN 50 MG TAB PO SCH (08:37)
[2017-05-14] MEDS: HEPARIN SODIUM,PORCINE 5,000 UNIT/ML 1 ML VIAL SQ SCH (08:37)
[2017-05-14] MEDS: NICOTINE 14MG/24HR PATCH TRANSDERM SCH (08:38)
[2017-05-14] MEDS: FUROSEMIDE 10 MG/ML 2 ML VIAL IV SCH (08:38)
[2017-05-14] MEDS: SPIRONOLACTONE 25 MG TAB PO SCH (08:38)
[2017-05-14] MEDS: ALBUTEROL NEBULIZED 2.5 MG/3 ML INHALATION SCH ×2 (08:38→13:51)
[2017-05-14] MEDS: METOPROLOL TARTRATE 50 MG TAB PO SCH (08:48)
--- NOTE | 2017-05-14 10:13 | P.PN ---
Subjective This is a 61-year-old female patient being evaluated and examined today in selective care unit. Patient did come into the emergency room at [facility] with a diagnosis of a NSTEMI, she was then transferred to [facility]. She underwent a heart catheterization with stent placement. Patient to have stenosis to the proximal LAD. Patient did undergo pulmonary edema during this process and briefly required IV Lasix and was ultimately intubated. Patient was successfully extubated and downgraded from the intensive care unit. Upon examination the patient is sitting up in bed on room air denies any shortness of breath. Occasional dry cough is present. Patient has good urine output. Patient's ejection fraction has improved to 40%. Patient's appetite continues to be good. Patient states she has been up ambulating in the hallway frequently. Patient states she feels that she is at her baseline and is requesting to be discharged. Objective - Vital Signs Vital signs: Vital Signs Temp 97.9 F 05/14/17 04:00 Pulse 88 05/14/17 08:50 Resp 16 05/14/17 04:00 BP 115/58 05/14/17 04:00 Pulse Ox 95 05/14/17 04:00 Intake & Output 05/13/17 05/14/17 05/14/17 18:59 06:59 18:59 Intake Total 50 170 180 Balance 50 170 180 Weight 51.4 kg 51.1 kg Intake: IV 50 170 Piperacillin-Tazobactam 3 50 50 .375 gm In Dextrose/Water 1 50ml.bag @ 12.5 mls/hr IVPB Q8HR [facility] Rx#: [id number] Sodium Chloride 0.9% 1, 120 000 ml @ 20 mls/hr IV . Q24H [facility] Rx#:[id number] Oral 180 Other: Voiding Method Toilet # Voids 0 ABP, PAP, CO, CI - Last Documented Arterial Blood Pressure 100/82 Pulmonary Artery Pressure 21/13 Cardiac Output 4.8 Cardiac Index 3.1 - Exam GENERAL EXAM: Alert active signs and symptoms of distress. HEAD: Normocephalic. EYES: Normal reaction of pupils, equal size. NOSE: Clear with pink turbinates. THROAT: No erythema or exudates. NECK: No masses, no JVD. CHEST: No chest wall deformity. LUNGS: Equal air entry with no crackles, wheeze, rhonchi or dullness. Bases diminished CVS: S1 and S2 normal with no audible mumurs, regular rhythm. ABDOMEN: No hepatosplenomegaly, normal bowel sounds, no guarding or rigidity. Tolerating tube feeds well EXTREMITIES: No edema noted, pedal pulses palpable. SKIN: No rashes CENTRAL NERVOUS SYSTEM: Moves all extremities no focal deficit - Labs CBC & Chem 7: 05/14/17 05:52 05/14/17 05:52 Labs: Abnormal Lab Results - Last 24 Hours (Table) 05/13/17 05/14/17 05/14/17 Range/Units 06:36 05:52 05:52 RBC 3.22 L 3.48 L (3.80-5.40) m/uL Hgb 10.3 L 10.8 L (11.4-16.0) gm/dL Hct 31.1 L 32.8 L (34.0-46.0) % Glucose 103 H (74-99) mg/dL AST 93 H (14-36) U/L ALT 91 H (9-52) U/L Total Protein 5.7 L (6.3-8.2) g/dL Albumin 3.1 L (3.5-5.0) g/dL Microbiology - Last 24 Hours (Table) 05/07/17 21:05 Blood Culture - Final Blood No Growth after 144 hours 05/07/17 04:42 Blood Culture - Final Blood No Growth after 144 hours Assessment and Plan Plan: Assessment Acute systolic heart failure related to acute myocardial infarction and coronary artery disease Right lower lobe pneumonia Acute hypoxic respiratory failure secondary to pulmonary edema Sepsis associated with pneumonia Coronary artery disease and stenosis of the LAD status post stent placement Electrolyte imbalances Essential hypertension Nicotine dependence History of cerebral aneurysm with stent placements Plan Patient is cleared for discharge from a pulmonary standpoint. Medications have been reviewed and will be continued as ordered. Continue with pulmonary hygiene , coughing and deep breathing exercises, and supportive care. Continue with antibiotics. Supplemental oxygen to maintain oxygen saturations of 92% or better. Continue nebulizer treatments. Initiate and encourage incentive spirometer. Continue electrolyte replacements. Continue with cardiology consult and recommendations. GI and DVT prophylaxis. We will continue to monitor labs/results and adjust treatment as necessary. Further recommendations pending. I performed an examination of the patient and discussed their management with the nurse practitioner. I have reviewed the nurse practitioner's note and agree with the documented findings and plan of care.
[2017-05-14 13:17] VITALS: BP 133/60; RESP 15; TEMP 97.5
[2017-05-14 14:01] VITALS: PULSE 90
--- NOTE | 2017-05-14 14:05 | PN ---
Mrs. Thomas is a 61-year-old female who presented with non-STEMI, underwent stenting of the LAD, had evidence of cardiomyopathy and initially acute pulmonary edema requiring mechanical ventilation. She is feeling quite well this morning, ambulating without difficulty. Denying chest pain. No dizziness. No palpitation. She denies any nausea. She continues to be on aspirin once a day, Plavix 75 mg daily, Lipitor 80 mg daily, furosemide 20 mg daily, losartan 50 mg daily, metoprolol 50 mg twice a day and Aldactone 25 mg daily. PHYSICAL EXAMINATION: Blood pressure 106/50 with a heart rate in the 90s. LUNGS: No wheezes. HEART: Regular rate and rhythm. S1, S2, no S3, no rub. ABDOMEN: Soft, nontender. EXTREMITIES: No edema. Lab data revealed a BUN and creatinine of 11 and 0.5. Potassium 3.8. Hemoglobin of 10.8. IMPRESSION: 1. Status post stenting of the left anterior descending. 2. Pulmonary edema, resolved. 3. Ischemic cardiomyopathy, improving. RECOMMENDATION: I will switch her to oral diuretics. She should be able to be discharged home today and follow as an outpatient with Dr. Preciado in a week.
--- NOTE | 2017-05-14 14:50 | P.DS ---
Providers Date of admission: 05/06/17 15:41 Expected date of discharge: 05/14/17 Attending physician: Florencia Rodriguez Consults: 05/06/17 17:38 Consult Physician Routine Consulting Provider: Cornel Carranza Consult Reason/Comments: vent mgt Do you want consulting provider notified?: Yes Consult Physician Routine Consulting Provider: [facility] Consult Reason/Comments: Post Interventional patient Do you want consulting provider notified?: Already Contacted Primary care physician: Rajni Davalos Hospital Course: Discharge diagnosis 1. acute non-ST elevated myocardial infarction: Patient underwent heart catheterization requiring stent to the LAD. Continue Plavix, aspirin, Lipitor, metoprolol. Cardiology following closely 2. Acute respiratory failure secondary to pulmonary edema requiring mechanical intubation: Patient tolerated extubation 3. Acute pulmonary edema with acute systolic CHF exacerbation: Continue IV Lasix. Dose was decreased by cardiology yesterday. We'll await their further recommendations 4. Hypomagnesemia patient is receiving magnesium supplement 5. Pneumonia: Pulmonary following. White count has normalized. Continue antibiotics. Continue Zosyn 6. Essential hypertension 7. Nicotine dependence 8. Hyperlipidemia 9. History of cerebral aneurysm with stent placement 10. Iron deficiency anemia. Patient had iron level of 13. Start ferrous sulfate 325 mg twice a day. 11. Elevated LFTs likely related to the Lipitor. Lipitor will be decreased to 40 mg daily. Check LFTs in 1 week outpatient 12. ALLERGIC dermatitis likely related to the Zosyn. Patient does have a known penicillin ALLERGY. She has a rash on her back. That is doing fine after dose of IV steroids and Benadryl as needed. At this time will discontinue Zosyn and send her home with Levaquin to complete treatment for her pneumonia 13. Cardiogenic shock 14. Generalized anxiety disorder Hospital course his is a 61-year-old female, patient of Dr. Davalos. She has a known past medical history of cerebral aneurysm with stent placement, hypertension, hyperlipidemia and nicotine dependence. Patient initially presented to the emergency room at [facility] with complaints of chest pain. Please note that the information has been taken from patient's chart. She is currently intubated and sedated in the ICU. Per cardiology note patient presented with chest pain and shortness of breath. There is mild elevation in her troponin and evidence of EKG changes. The reports anterior T-wave inversions and subtle ST segment elevation in V2 and V3. Therefore she was transferred to [facility] to undergo heart catheterization with stent placement. Heart catheterization was completed yesterday with evidence of stenosis in the proximal LAD patient underwent stent placement to this area. During that time patient developed pulmonary edema required briefly on IV Lasix and intubated and is currently in the ICU area did patient did require vasopressors. Eventually she was able to be extubated off of the pressors. And was able to be transferred to the sixth floor. She completed treatment for her pneumonia. Medications were added for her acute SD. She did require stents to the LAD. Patient's symptoms have improved. She is up and ambulating. No evidence of chest pain. She's been cleared for discharge by cardiology and pulmonary service. She's been educated thoroughly to quit smoking. She also had some evidence of iron deficiency anemia. Started on iron supplement. Elevated LFTs were noted with an AST of 93 and ALT of 91 at discharge. At this time we'll decrease the Lipitor from 80-40 mg. In the recommending repeating LFTs in 1 week. Patient is medically stable for discharge. She's been given a prescription for nicotine. And also for her anxiety we have added Xanax. Patient Condition at Discharge: Stable Plan - Discharge Summary New Discharge Prescriptions: New ALPRAZolam [Xanax] 0.25 mg PO BID PRN #14 tab PRN Reason: Anxiety Aspirin 81 mg PO DAILY #30 Clopidogrel [Plavix] 75 mg PO DAILY #30 tab Ferrous Sulfate [Iron (65 MG Elemental)] 325 mg PO BID #60 tab Furosemide [Lasix] 20 mg PO DAILY #30 tab Levofloxacin [Levaquin] 500 mg PO DAILY #4 tab Losartan [Cozaar] 50 mg PO DAILY #30 tab Metoprolol Tartrate [Lopressor] 50 mg PO BID #30 tab Nicotine 14Mg/24Hr Patch [Habitrol] 1 patch TRANSDERM DAILY #30 patch Spironolactone [Aldactone] 25 mg PO DAILY #30 tab Atorvastatin [Lipitor] 40 mg PO DAILY #30 tablet Discharge Medication List ALPRAZolam [Xanax] 0.25 mg PO BID PRN #14 tab 05/14/17 [Rx] Aspirin 81 mg PO DAILY #30 05/14/17 [Rx] Atorvastatin [Lipitor] 40 mg PO DAILY #30 tablet 05/14/17 [Rx] Clopidogrel [Plavix] 75 mg PO DAILY #30 tab 05/14/17 [Rx] Ferrous Sulfate [Iron (65 MG Elemental)] 325 mg PO BID #60 tab 05/14/17 [Rx] Furosemide [Lasix] 20 mg PO DAILY #30 tab 05/14/17 [Rx] Levofloxacin [Levaquin] 500 mg PO DAILY #4 tab 05/14/17 [Rx] Losartan [Cozaar] 50 mg PO DAILY #30 tab 05/14/17 [Rx] Metoprolol Tartrate [Lopressor] 50 mg PO BID #30 tab 05/14/17 [Rx] Nicotine 14Mg/24Hr Patch [Habitrol] 1 patch TRANSDERM DAILY #30 patch 05/14/17 [ Rx] Spironolactone [Aldactone] 25 mg PO DAILY #30 tab 05/14/17 [Rx] Follow up Appointment(s)/Referral(s): Cornel Carranza MD [STAFF PHYSICIAN] - 1 Week Yinka Preciado MD [STAFF PHYSICIAN] - 05/20/17 2:00 pm Rajni Davalos MD [Primary Care Provider] - 1 Week Activity/Diet/Wound Care/Special Instructions: Diet: cardiac Activity: as tolerated Check CMP in 1 week Discharge Disposition: HOME SELF-CARE
[2017-05-14] MEDS ORDERED: ATORVASTATIN 40 MG TAB PO SCH (21:00)
[2017-05-15] MEDS ORDERED: FUROSEMIDE 20 MG TAB PO SCH (09:00)
== END 2017-05-14 16:11 | disposition home or self-care (01) | DRG 246 ==
LOC: 6ICU 15:41 → 6SEL 05-12 14:20
PROVIDERS: ADMIT Internal Medicine; ATTEND Internal Medicine
PROC: 4A023N7 Measurement of Cardiac Sampling and Pressure, Left Heart, Percutaneous Approach (ICD-10-PCS; 2017-05-06)
PROC: B2111ZZ Fluoroscopy of Multiple Coronary Arteries using Low Osmolar Contrast (ICD-10-PCS; 2017-05-06)
PROC: 0BH17EZ Insertion of Endotracheal Airway into Trachea, Via Natural or Artificial Opening (ICD-10-PCS; 2017-05-06)
PROC: 027034Z Dilation of Coronary Artery, One Artery with Drug-eluting Intraluminal Device, Percutaneous Approach (ICD-10-PCS; principal; 2017-05-06 10:55)
PROC: 5A1955Z Respiratory Ventilation, Greater than 96 Consecutive Hours (ICD-10-PCS; 2017-05-06 10:55)
PROC: 03HY32Z Insertion of Monitoring Device into Upper Artery, Percutaneous Approach (ICD-10-PCS; 2017-05-07)
PROC: 4A133B1 Monitoring of Arterial Pressure, Peripheral, Percutaneous Approach (ICD-10-PCS; 2017-05-07)
PROC: 4A133J1 Monitoring of Arterial Pulse, Peripheral, Percutaneous Approach (ICD-10-PCS; 2017-05-07)
PROC: 02HQ32Z Insertion of Monitoring Device into Right Pulmonary Artery, Percutaneous Approach (ICD-10-PCS; 2017-05-07)
PROC: 4A133B3 Monitoring of Arterial Pressure, Pulmonary, Percutaneous Approach (ICD-10-PCS; 2017-05-07)
PROC: 4A1239Z Monitoring of Cardiac Output, Percutaneous Approach (ICD-10-PCS; 2017-05-07)
DX: I21.4 Non-ST elevation (NSTEMI) myocardial infarction (principal); J96.01 Acute respiratory failure with hypoxia; R65.20 Severe sepsis without septic shock; R57.0 Cardiogenic shock; J84.9 Interstitial pulmonary disease, unspecified; I50.23 Acute on chronic systolic (congestive) heart failure; A41.9 Sepsis, unspecified organism; I51.81 Takotsubo syndrome; I25.5 Ischemic cardiomyopathy; I11.0 Hypertensive heart disease with heart failure; I08.1 Rheumatic disorders of both mitral and tricuspid valves; E83.42 Hypomagnesemia; E78.5 Hyperlipidemia, unspecified; F17.200 Nicotine dependence, unspecified, uncomplicated; E87.6 Hypokalemia; E86.1 Hypovolemia; I73.9 Peripheral vascular disease, unspecified; F41.1 Generalized anxiety disorder; D50.9 Iron deficiency anemia, unspecified; I25.10 Atherosclerotic heart disease of native coronary artery without angina pectoris; L23.9 Allergic contact dermatitis, unspecified cause; Z86.73 Personal history of transient ischemic attack (TIA), and cerebral infarction without residual deficits; Z95.828 Presence of other vascular implants and grafts; Z88.0 Allergy status to penicillin
CPT/HCPCS: 31500; 36600; 71010; 80048; 80053; 81001; 82728; 82805; 83540; 83550; 83605; 83735; 84100; 84132; 84484; 85025; 85027; 85347; 85379; 87040; 87070; 87086; 87205; 93306; 93308; 93458; 94002; 94003; 94640

== ENCOUNTER → 2017-06-02 | Outpatient (CLI) | payer MEDICARE, OTHER ==
[2017-06-02 13:57] LABS: Basophils # (A) 0.1 k/uL (0-0.2); Basophils % (A) 1 %; CH 30.9; CHCM 31.8; Eosinophils # (A) 0.1 k/uL (0-0.7); Eosinophils % (A) 2 %; HCT 36.8 % (34.0-46.0); HDW 2.21; HGB 12.2 gm/dL (11.4-16.0); Luc # (Auto) 0.28; Luc % (Auto) 4; Lymphocytes # (A) 2.9 k/uL (1.0-4.8); Lymphocytes % (A) 41 %; MCH 32.4 pg (25.0-35.0); MCHC 33.2 g/dL (31.0-37.0); MCV 97.7 fL (80.0-100.0); Mean Platelet Volume 7.5; Monocytes # (A) 0.5 k/uL (0-1.0); Monocytes % (A) 7 %; Neutrophils # (A) 3.2 k/uL (1.3-7.7); Neutrophils % (A) 46 %; RBC 3.77 m/uL (3.80-5.40); RDW 13.9 % (11.5-15.5); WBC (Perox) 7.23
[2017-06-02 14:01] LABS: ALT 32 U/L (9-52); AST 20 U/L (14-36); Alkaline Phosphatase 65 U/L (38-126); Anion Gap 11 mmol/L; Blood Urea Nitrogen 14 mg/dL (7-17); Calcium 9.4 mg/dL (8.4-10.2); Carbon Dioxide 25 mmol/L (22-30); Chloride 107 mmol/L (98-107); Glucose 89 mg/dL (74-99); Non-African American GFR(MDRD) >60 (>60 ml/min/1.73 sqM); Potassium 4.3 mmol/L (3.5-5.1); Sodium 143 mmol/L (137-145); Total Bilirubin 0.4 mg/dL (0.2-1.3); Total Protein 6.6 g/dL (6.3-8.2)
== END ==
LOC: LABWHC1 12:55
PROVIDERS: ATTEND Internal Medicine
DX: D64.9 Anemia, unspecified (principal); R79.89 Other specified abnormal findings of blood chemistry; R90.89 Other abnormal findings on diagnostic imaging of central nervous system
CPT/HCPCS: 36415; 80053; 85025; 86334

== ENCOUNTER → 2018-03-08 | Outpatient (CLI) | payer MEDICARE, OTHER ==
[2018-03-08 09:26] LABS: HCT 40.1 % (34.0-46.0); MCH 31.4 pg (25.0-35.0); MCHC 32.4 g/dL (31.0-37.0); MCV 96.9 fL (80.0-100.0); Platelet Count 234 k/uL (150-450); RBC 4.14 m/uL (3.80-5.40); RDW 13.1 % (11.5-15.5); WBC 9.7 k/uL (3.8-10.6)
[2018-03-08 09:56] LABS: ALT 28 U/L (9-52); AST 25 U/L (14-36); Anion Gap 13 mmol/L; Blood Urea Nitrogen 11 mg/dL (7-17); Calcium 9.6 mg/dL (8.4-10.2); Carbon Dioxide 27 mmol/L (22-30); Chloride 105 mmol/L (98-107); Cholesterol 135 mg/dL (<200); Glucose 95 mg/dL (74-99); HDL Cholesterol 75 mg/dL (40-60); LDL Cholesterol,Calculated 50 mg/dL (0-99); Magnesium 2.1 mg/dL (1.6-2.3); Potassium 4.6 mmol/L (3.5-5.1); Sodium 145 mmol/L (137-145); Triglycerides 48 mg/dL (<150); Uric Acid 2.5 mg/dL (3.7-7.4)
== END | disposition home or self-care (01) ==
LOC: LABWHC1 08:45
PROVIDERS: ATTEND Nurse Practitioner Adult Health
DX: E78.00 Pure hypercholesterolemia, unspecified (principal); E55.9 Vitamin D deficiency, unspecified; I25.10 Atherosclerotic heart disease of native coronary artery without angina pectoris; E78.2 Mixed hyperlipidemia; I10 Essential (primary) hypertension; I25.5 Ischemic cardiomyopathy; J44.9 Chronic obstructive pulmonary disease, unspecified; M10.9 Gout, unspecified
CPT/HCPCS: 36415; 80048; 80061; 82306; 83735; 84443; 84450; 84460; 84550; 85027

== ENCOUNTER → 2018-03-18 | Outpatient (CLI) | payer MEDICARE, OTHER ==
--- NOTE | 2018-03-20 00:21 | CT ---
EXAMINATION TYPE: CT angio neck DATE OF EXAM: 03/18/2018 HISTORY: occlusion/stenosis COMPARISON: Prior CTA neck June 04, 2016. CT DLP: 156.8 mGycm. Automated Exposure Control for Dose Reduction was Utilized. TECHNIQUE: CTA scan of the neck is performed with IV Contrast, patient injected with 65 mL of Isovue 370, axial images are obtained, coronal and sagittal reformatted images are reviewed. Three-D recons tructed images are created on an independent workstation and reviewed. FINDINGS: Carotid/Vascular Structures: There is persistent three-vessel origin from the aortic arch. Right comm on carotid artery shows normal origin from the right brachiocephalic artery. There is moderate eccent leonidas noncalcified plaque in the aortic arch redemonstrated. There is no significant plaque or stenosis and subclavian arteries bilaterally. There is moderate eccentric noncalcified plaque at right caroti d bulb extending into the proximal internal carotid artery causing stenosis estimated less than 50%. There is complete occlusion of right internal carotid artery shortly after its origin similar to prio r. There is patent external carotid artery without significant stenosis. There is no significant plaque or stenosis in the left common carotid artery. There is redemonstratio n of long segment stent graft beginning near level of carotid bulb extending through proximal and mid portions of the left internal carotid artery. There is patent external carotid artery without signif icant plaque or stenosis. There is increasing noncalcified plaque in the stent graft is most prominen tly seen beginning series 4 image 46 through 49, degree of stenosis is felt stable from most recent C T. Lumen diameter narrowing 60% as noted on prior report. There is artifact from aneurysm clip near basilar artery making evaluation of this level suboptimal. There is a dominant left vertebral artery. Vertebral arteries are patent to basilar junction. Other: Aneurysm clip anterior to brainstem is redemonstrated along course of posterior circulation. T here is moderate emphysematous change with moderate biapical pleural/parenchymal scarring redemonstra noel. IMPRESSION: Persistent complete occlusion of right internal carotid artery shortly after its origin. Persistent but stable stenosis in left carotid stent graft.
== END ==
LOC: RADCTMAIN 16:58
PROVIDERS: ATTEND Internal Medicine Cardiovascular Disease
DX: I65.23 Occlusion and stenosis of bilateral carotid arteries (principal)
CPT/HCPCS: 70498; Q9967

== ENCOUNTER → 2019-04-04 | Outpatient (CLI) | payer MEDICARE, OTHER ==
[2019-04-04 14:25] LABS: Basophils # (A) 0.1 k/uL (0-0.2); Basophils % (A) 1 %; Eosinophils # (A) 0.1 k/uL (0-0.7); Eosinophils % (A) 1 %; HCT 41.9 % (34.0-46.0); HGB 13.5 gm/dL (11.4-16.0); Lymphocytes # (A) 2.7 k/uL (1.0-4.8); Lymphocytes % (A) 31 %; MCH 31.1 pg (25.0-35.0); MCHC 32.2 g/dL (31.0-37.0); MCV 96.7 fL (80.0-100.0); Mean Platelet Volume 8.5; Monocytes # (A) 0.4 k/uL (0-1.0); Monocytes % (A) 5 %; Neutrophils # (A) 5.4 k/uL (1.3-7.7); Neutrophils % (A) 60 %; Platelet Count 208 k/uL (150-450); RBC 4.33 m/uL (3.80-5.40); RDW 13.5 % (11.5-15.5); WBC 8.9 k/uL (3.8-10.6)
[2019-04-04 14:33] LABS: Anion Gap 5 mmol/L; Blood Urea Nitrogen 14 mg/dL (7-17); Carbon Dioxide 28 mmol/L (22-30); Chloride 106 mmol/L (98-107); Potassium 4.6 mmol/L (3.5-5.1); Sodium 139 mmol/L (137-145)
== END | disposition home or self-care (01) ==
LOC: LABPAT 14:05
PROVIDERS: ATTEND Surgery
DX: Z01.812 Encounter for preprocedural laboratory examination (principal); I65.22 Occlusion and stenosis of left carotid artery
CPT/HCPCS: 80051; 82565; 84520; 85025

== ENCOUNTER 2019-04-18 08:24 | Inpatient (IN) | payer MEDICARE, OTHER ==
[2019-04-18] MEDS ORDERED: SODIUM CHLORIDE 0.9% 1,000 ML IV ONE (08:55)
[2019-04-18] MEDS ORDERED: fentaNYL (PF) 50 MCG/ML 2 ML AMP IV ONE (09:55)
[2019-04-18] MEDS ORDERED: LIDOCAINE 1% INJ 10MG/ML (20 ML MDV) SQ ONE (10:01)
[2019-04-18] MEDS ORDERED: HEPARIN SODIUM 1,000 UN/ML (10ML VL) IV ONE (10:32)
[2019-04-18] MEDS ORDERED: IOPAMIDOL-250 100ML BTL INTRAARTER ONE ×2 (11:02)
[2019-04-18] MEDS ORDERED: CLOPIDOGREL 75 MG TAB PO ONE (11:04)
[2019-04-18] MEDS ORDERED: RX INFO: IV CONTRAST WAS GIVEN 1 EACH MISC MISCELLANE PRN (11:10)
--- NOTE | 2019-04-18 11:39 | P.OP ---
Date of Procedure: 04/18/19 Preoperative Diagnosis: Left internal carotid artery in-stent restenosis greater than 75% Postoperative Diagnosis: Left internal carotid artery in-stent stenosis approximately 40% Procedure(s) Performed: Aortic arch angiogram with selective bilateral carotid angiogram and cerebral angiogram Placement of ASIA 6 filter Percutaneous transluminal balloon angioplasty of in-stent stenosis with 6 x 30 mm viatrack balloon Anesthesia: local (Moderate sedation 63 minutes) Surgeon: Avelino Davila Estimated Blood Loss (ml): 5 IV fluids (ml): 100 Pathology: none sent Condition: stable Disposition: PACU Indications for Procedure: 63-year-old female with history of right internal carotid artery occlusion and left internal carotid artery stenosis with previous stroke and carotid stenting which was done years ago. She has been followed by her neurologist for her cerebral aneurysms which have been coiled in the past and upon MRI was noted that her stents had increased area of stenosis measuring greater than 75%. She recently had a CTA last year which demonstrated approximately 50% stenosis therefore this was a significant increase. We did discuss multiple options but due to the fact that her stents extended from her common carotid all the way to her internal carotid artery at the skull it was determined that she would require balloon angioplasty and possible restenting. She presents today for arch angiogram and possible intervention. Operative Findings: Multiple stents extending from the common carotid artery to the internal carotid artery past the band into the cranium Description of Procedure: After written informed consent was obtained the patient all risks benefits and competitions were described the patient is brought to the Crime Scene Evidence Technician and laid in a supine position the area of the groins were prepped and draped in usual sterile fashion. Timeout was performed in normal fashion. Utilizing ultrasound the right common femoral artery was visualized shown to be patent without any significant calcification and a multipurpose needle was utilized to cannulate the artery and utilizing Seldinger technique a 5-Turkish sheath was placed. 035 Glidewire was then placed into the aortic arch and pigtail catheter was placed. Arch angiogram was then obtained demonstrating no evidence of disease at the arch or the takeoff of the subclavian on the left, left common carotid or brachiocephalic vessels. At that time the pigtail catheter was removed over a wire and a JB2 catheter was then placed and the right brachiocephalic artery was accessed and selective right carotid angiogram was performed. There was occluded internal carotid artery just after the takeoff of the carotid bulb. The catheter was then withdrawn and placed within the left carotid artery and selective angina gram was obtained. There were stents extending from the common carotid extending all the way to the internal carotid artery pass the base of the skull. There was significant narrowing in-stent at the common carotid and extending into the internal carotid artery approximately 75%. Patient was administered 3000 units of heparin for intervention. At that time a stiff Glidewire was placed just at the takeoff of the common carotid stents and the 5- Turkish sheath was removed and replaced with a 6-Turkish shuttle sheath. Shuttle sheath was placed just past the carotid takeoff and once again angiogram was obtained. A NAV6 filter with wire was then placed in normal fashion across the lesion within the distal stent. Once filter was in place balloon angioplasty was then performed with a 6 x 30 mm Viatrek balloon across both areas of stenosis for approximately 10-15 seconds. Patient was awake and neurologically intact throughout the entirety of the procedure with neuro examinations every 5 minutes. Once completed finally gram was obtained demonstrating significant improvement of stenosis and when measured less than 40% residual stenosis was noted. Cerebral angiogram was also obtained demonstrating no evidence of distal emboli. All guidewires and catheters were then removed as well as the filter in the appropriate fashion. Sheath was then removed and pressure was placed for hemostasis. Hemostasis was assured and the area was cleansed and dressings were placed. Plan - Discharge Summary Discharge Rx Participant: Yes New Discharge Prescriptions: No Action Aspirin 81 mg PO DAILY #30 Clopidogrel [Plavix] 75 mg PO DAILY #30 tab Furosemide [Lasix] 20 mg PO DAILY #30 tab Losartan [Cozaar] 50 mg PO DAILY #30 tab Metoprolol Tartrate [Lopressor] 50 mg PO BID #30 tab Nicotine 14Mg/24Hr Patch [Habitrol] 1 patch TRANSDERM DAILY #30 patch Spironolactone [Aldactone] 25 mg PO DAILY #30 tab Atorvastatin [Lipitor] 40 mg PO DAILY #30 tablet rOPINIRole HCL [Requip] 0.25 mg PO HS Allopurinol [Zyloprim] 300 mg PO DAILY traZODone HCL [TraZODone HCl] 200 mg PO HS HYDROcodone/APAP 10-325MG [[place] 10-325] 1 tab PO DAILY PRN PRN Reason: Pain Butalbit/Acetamin/Caff/Codeine [Butal/APAP/Caff/Cod 63-790-20-30MG] 1 cap PO DAILY PRN PRN Reason: Migraine Headache Discharge Medication List Aspirin 81 mg PO DAILY #30 05/14/17 [Rx] Atorvastatin [Lipitor] 40 mg PO DAILY #30 tablet 05/14/17 [Rx] Clopidogrel [Plavix] 75 mg PO DAILY #30 tab 05/14/17 [Rx] Furosemide [Lasix] 20 mg PO DAILY #30 tab 05/14/17 [Rx] Losartan [Cozaar] 50 mg PO DAILY #30 tab 05/14/17 [Rx] Metoprolol Tartrate [Lopressor] 50 mg PO BID #30 tab 05/14/17 [Rx] Nicotine 14Mg/24Hr Patch [Habitrol] 1 patch TRANSDERM DAILY #30 patch 05/14/17 [Rx] Spironolactone [Aldactone] 25 mg PO DAILY #30 tab 05/14/17 [Rx] Allopurinol [Zyloprim] 300 mg PO DAILY 04/13/19 [History] Butalbit/Acetamin/Caff/Codeine [Butal/APAP/Caff/Cod 22-082-30-30MG] 1 cap PO DAILY PRN 04/13/19 [History] HYDROcodone/APAP 10-325MG [[place] 10-325] 1 tab PO DAILY PRN 04/13/19 [History] rOPINIRole HCL [Requip] 0.25 mg PO HS 04/13/19 [History] traZODone HCL [TraZODone HCl] 200 mg PO HS 04/13/19 [History] Follow up Appointment(s)/Referral(s): Avelino Davila DO [STAFF PHYSICIAN] - 2 Weeks Activity/Diet/Wound Care/Special Instructions: no heavy lifting x 1 week no driving 48 hours Ok to resume walking and activity in 24 hours.
--- NOTE | 2019-04-18 16:57 | IR ---
EXAMINATION TYPE: IR airline captain brachiocephalic DATE OF EXAM: 04/18/2019 COMPARISON: NONE HISTORY: Carotid stenosis Fluoroscopy support supplied to the referring clinician. See dictated report from vascular surgery, 14.5 minutes fluoroscopy time, 435 intraoperative images document the procedure
[2019-04-18] MEDS ORDERED: HYDROcodone/APAP 10-325MG 1 EACH TAB PO PRN (17:44)
[2019-04-18 17:47] LABS: Glucose,Whole Blood 126 mg/dL (75-99)
[2019-04-18 17:53] VITALS: BMI 17.4
[2019-04-18] MEDS: BUTA/APAP/CAF/COD 50-325-40-30 CAP PO PRN (19:11)
[2019-04-18] MEDS ORDERED: traZODone HCL 100 MG TAB PO SCH (21:00)
[2019-04-18] MEDS ORDERED: METOPROLOL TARTRATE 50 MG TAB PO SCH (21:00)
[2019-04-19 08:15] VITALS: TEMP 97.9
[2019-04-19] MEDS: BUTA/APAP/CAF/COD 50-325-40-30 CAP PO PRN (08:15)
--- NOTE | 2019-04-19 08:22 | CONS ---
CONSULTATION Mrs. Thomas is a 63-year-old female with a history of coronary artery disease, status post stenting of the LAD in 2017, history of chronic tobacco use as well as history of carotid disease with prior CVA, was found to have progression of the stenosis of her left carotid stent. She underwent angiography yesterday by Dr. Davila and was found to have left internal carotid in-stent restenosis and underwent a percutaneous transluminal balloon angioplasty. She is doing well this morning. Her breathing is stable. She is denying any chest pain. She has been doing reasonably well since her stenting in 2017. Her activity level has been stable. She denies any dizziness or palpitation. She denies any PND, orthopnea or significant peripheral edema. She is followed on a regular basis by Dr. Preciado. Her coronary risk factors are remarkable for the history of smoking, she stopped 2 weeks ago, history of hypertension and hyperlipidemia. She is nondiabetic. MEDICATIONS: Her medications include trazodone, Requip, Aldactone, Lopressor 50 mg twice a day, Cozaar 50 mg daily, Lasix 20 mg daily, Plavix 75 mg daily, Lipitor 40 mg daily and aspirin. REVIEW OF SYSTEMS: RESPIRATORY SYSTEM: She has history of chronic tobacco use, but no recent wheezing or cough. GI SYSTEM: No recent GI bleeding. No peptic ulcer disease. SYSTEM: No dysuria or hematuria. NERVOUS SYSTEM: She has a history of stroke as noted. PHYSICAL EXAMINATION: A 63-year-old female, alert, oriented, in no apparent distress. Blood pressure 107/60 with the heart rate in the 50s. HEAD: Normocephalic. EYES: Sclerae anicteric. NECK: Good carotid upstroke with bruit noted. LUNGS: Clear to auscultation. HEART: Regular rate and rhythm. S1, S2. No S3 with systolic ejection murmur at the base. No diastolic murmur. ABDOMEN: Soft, nontender. Positive bowel sounds. No organomegaly. EXTREMITIES: no edema. Intact distal pulses. IMPRESSION: 1. Status post balloon angioplasty of in-stent restenosis of the left carotid artery. 2. Status post stenting of the LAD in 2017. 3. Hypertension. 4. Hyperlipidemia. 5. Chronic tobacco use. Patient stopped 2 weeks ago. RECOMMENDATION: From the cardiac standpoint, she is stable. I would expect she should be able to be discharged home today and follow up with Dr. Preciado as scheduled. MMODL / IJN: [id number] / MTDMatt
[2019-04-19] MEDS ORDERED: LOSARTAN 50 MG TAB PO SCH (09:00)
[2019-04-19] MEDS ORDERED: CLOPIDOGREL 75 MG TAB PO SCH (09:00)
[2019-04-19] MEDS ORDERED: NICOTINE 14MG/24HR PATCH TRANSDERM SCH (09:00)
[2019-04-19] MEDS ORDERED: ALLOPURINOL 300 MG TAB PO SCH (09:00)
[2019-04-19] MEDS ORDERED: ASPIRIN 325 MG TAB PO SCH (09:00)
[2019-04-19] MEDS ORDERED: FUROSEMIDE 20 MG TAB PO SCH (09:00)
[2019-04-19] MEDS ORDERED: SPIRONOLACTONE 25 MG TAB PO SCH (09:00)
[2019-04-19] MEDS ORDERED: ATORVASTATIN 40 MG TAB PO SCH (09:00)
[2019-04-19 10:38] VITALS: BP 118/51; PULSE 51; RESP 16
--- NOTE | 2019-04-22 06:09 | P.DS ---
Providers Date of admission: 04/18/19 11:03 Expected date of discharge: 04/19/19 Attending physician: Avelino Davila DO Primary care physician: Rajni Davalos - Discharge Diagnosis(es) (1) Stenosis of left internal carotid artery Status: Acute Priority: High Hospital Course: 63 year old female presented to the laborer shell[facility] processing and underwent arch angiogram and PTBA of the left internal carotid instent stenosis. She was then admitted for neuro monitoring. She did well, had no neurologic issues, tolerated a diet, was ambulating well and was discharged the following morning without issue. Procedures: Left PTBA of instent ICA stenosis Patient Condition at Discharge: Stable Plan - Discharge Summary Discharge Rx Participant: No New Discharge Prescriptions: No Action Aspirin 81 mg PO DAILY #30 Clopidogrel [Plavix] 75 mg PO DAILY #30 tab Furosemide [Lasix] 20 mg PO DAILY #30 tab Losartan [Cozaar] 50 mg PO DAILY #30 tab Metoprolol Tartrate [Lopressor] 50 mg PO BID #30 tab Nicotine 14Mg/24Hr Patch [Habitrol] 1 patch TRANSDERM DAILY #30 patch Spironolactone [Aldactone] 25 mg PO DAILY #30 tab Atorvastatin [Lipitor] 40 mg PO DAILY #30 tablet rOPINIRole HCL [Requip] 0.25 mg PO HS Allopurinol [Zyloprim] 300 mg PO DAILY HYDROcodone/APAP 10-325MG [[place] 10-325] 1 tab PO DAILY PRN PRN Reason: Pain Butalbit/Acetamin/Caff/Codeine [Butal/APAP/Caff/Cod 49-147-73-30MG] 1 cap PO DAILY PRN PRN Reason: Migraine Headache traZODone HCL [Desyrel] 200 mg PO HS Discharge Medication List Aspirin 81 mg PO DAILY #30 05/14/17 [Rx] Atorvastatin [Lipitor] 40 mg PO DAILY #30 tablet 05/14/17 [Rx] Clopidogrel [Plavix] 75 mg PO DAILY #30 tab 05/14/17 [Rx] Furosemide [Lasix] 20 mg PO DAILY #30 tab 05/14/17 [Rx] Losartan [Cozaar] 50 mg PO DAILY #30 tab 05/14/17 [Rx] Metoprolol Tartrate [Lopressor] 50 mg PO BID #30 tab 05/14/17 [Rx] Nicotine 14Mg/24Hr Patch [Habitrol] 1 patch TRANSDERM DAILY #30 patch 05/14/17 [Rx] Spironolactone [Aldactone] 25 mg PO DAILY #30 tab 05/14/17 [Rx] Allopurinol [Zyloprim] 300 mg PO DAILY 04/13/19 [History] Butalbit/Acetamin/Caff/Codeine [Butal/APAP/Caff/Cod 66-897-72-30MG] 1 cap PO DAILY PRN 04/13/19 [History] HYDROcodone/APAP 10-325MG [[place] 10-325] 1 tab PO DAILY PRN 04/13/19 [History] rOPINIRole HCL [Requip] 0.25 mg PO HS 04/13/19 [History] traZODone HCL [Desyrel] 200 mg PO HS 04/18/19 [History] Follow up Appointment(s)/Referral(s): Avelino Davila DO [STAFF PHYSICIAN] - 05/02/19 3:30 pm Activity/Diet/Wound Care/Special Instructions: no heavy lifting x 1 week no driving 48 hours Ok to resume walking and activity in 24 hours. Discharge Disposition: HOME SELF-CARE
== END 2019-04-19 10:55 | disposition home or self-care (01) | DRG 254 ==
LOC: CATHCVL 08:24 → 2SICU 11:03
PROVIDERS: ADMIT Surgery; ATTEND Surgery
PROC: B31N1ZZ Fluoroscopy of Other Upper Arteries using Low Osmolar Contrast (ICD-10-PCS; 2019-04-18)
PROC: 037L3ZZ Dilation of Left Internal Carotid Artery, Percutaneous Approach (ICD-10-PCS; principal; 2019-04-18 09:45)
PROC: B3101ZZ Fluoroscopy of Thoracic Aorta using Low Osmolar Contrast (ICD-10-PCS; 2019-04-18 09:45)
DX: T82.856A Stenosis of peripheral vascular stent, initial encounter (principal); I65.21 Occlusion and stenosis of right carotid artery; E78.5 Hyperlipidemia, unspecified; I10 Essential (primary) hypertension; I25.10 Atherosclerotic heart disease of native coronary artery without angina pectoris; R01.1 Cardiac murmur, unspecified; F17.210 Nicotine dependence, cigarettes, uncomplicated; Z86.73 Personal history of transient ischemic attack (TIA), and cerebral infarction without residual deficits; Z95.5 Presence of coronary angioplasty implant and graft; Z86.79 Personal history of other diseases of the circulatory system; Z95.0 Presence of cardiac pacemaker; Y83.8 Other surgical procedures as the cause of abnormal reaction of the patient, or of later complication, without mention of misadventure at the time of the procedure
CPT/HCPCS: 61630

== ENCOUNTER 2022-01-03 11:08 | Emergency (ER) | payer MEDICARE, OTHER ==
[2022-01-03 11:16] VITALS: RESP 18
--- NOTE | 2022-01-03 11:40 | ED ---
General Adult HPI - General Chief complaint: Dental/Oral Stated complaint: Oral pain Time Seen by Provider: 01/03/22 11:30 Source: patient, RN notes reviewed, old records reviewed Mode of arrival: ambulatory Limitations: no limitations - History of Present Illness Initial comments: 66-year-old female presents to the emergency room with intermittent gum bleeding that started yesterday. Patient states that she takes aspirin and Plavix. She is not sure specifically what area is bleeding, has been intermittent. She did not take her aspirin today. She has poor dentition and states she does not see a dentist because she is afraid of them. She denies any other abnormal bleeding. She denies any fevers or abdominal pain -: days(s) (1) Severity scale (1-10): 0 Consistency: intermittent Improves with: none Worsens with: none Associated Symptoms: denies other symptoms Treatments Prior to Arrival: none - Related Data Home Medications Medication Instructions Recorded Confirmed Butalbit/Acetamin/Caff/Codeine 1 cap PO DAILY PRN 04/13/19 04/18/19 [Butal/APAP/Caff/Cod 16-100-65-30MG] HYDROcodone/APAP 10-325MG [[facility] 1 tab PO DAILY PRN 04/13/19 04/18/19 10-325] allopurinoL [Zyloprim] 300 mg PO DAILY 04/13/19 04/18/19 rOPINIRole HCL [Requip] 0.25 mg PO HS 04/13/19 04/18/19 traZODone HCL [Desyrel] 200 mg PO HS 04/18/19 04/18/19 Previous Rx's Medication Instructions Recorded Aspirin 81 mg PO DAILY #30 05/14/17 Atorvastatin [Lipitor] 40 mg PO DAILY #30 tablet 05/14/17 Clopidogrel [Plavix] 75 mg PO DAILY #30 tab 05/14/17 Furosemide [Lasix] 20 mg PO DAILY #30 tab 05/14/17 Losartan [Cozaar] 50 mg PO DAILY #30 tab 05/14/17 Metoprolol Tartrate [Lopressor] 50 mg PO BID #30 tab 05/14/17 Nicotine 14Mg/24Hr Patch [Habitrol] 1 patch TRANSDERM DAILY #30 patch 05/14/17 Spironolactone [Aldactone] 25 mg PO DAILY #30 tab 05/14/17 Clindamycin [Cleocin] 450 mg PO Q8H 10 Days #30 cap 01/03/22 Allergies Allergy/AdvReac Type Severity Reaction Status Date / Time Penicillins Allergy Anaphylaxis Verified 01/03/22 11:12 Review of Systems ROS Statement: Those systems with pertinent positive or pertinent negative responses have been documented in the HPI. ROS Other: All systems not noted in ROS Statement are negative. Past Medical History Past Medical History: GERD/Reflux, Hyperlipidemia, Hypertension, Osteoarthritis (OA), Vascular Disorder Additional Past Medical History / Comment(s): cerebral aneurysm with "capping", L caratid disease with stenting, gout, stress test April 29, 2017 and complained of SOB since that time, pt under increased stress with of her son 1 week ago and of her mother 4 months ago, nicotine dependence Last Myocardial Infarction Date:: 2016 History of Any Multi-Drug Resistant Organisms: None Reported Past Surgical History: Heart Catheterization With Stent, Tubal Ligation Additional Past Surgical History / Comment(s): 05/06/17 PCI with stent to LAD, L caratid stenting in 2008, cerebral aneurysm "capping', colonoscopy. Past Anesthesia/Blood Transfusion Reactions: No Reported Reaction Additional Past Anesthesia/Blood Transfusion Reaction / Comment(s): woke during during surgery Date of Last Stent Placement:: 05/06/17 Past Psychological History: Depression Smoking Status: Former smoker Past Alcohol Use History: Rare Past Drug Use History: Marijuana - Past Family History Mother Family Medical History: No Reported History Additional Family Medical History / Comment(s): Mother was healthy and at the age of 87yrs. Father Family Medical History: Coronary Artery Disease (CAD), Renal Disease Additional Family Medical History / Comment(s): Father had a heart transplant. General Exam Limitations: no limitations General appearance: alert, in no apparent distress Head exam: Present: atraumatic Eye exam: Present: normal appearance ENT exam: Present: mucous membranes moist, other (Bleeding in the oropharynx ) Expanded Mouth exam: Present: tongue normal, tongue elevation, other (Bleeding noted to area surrounding teeth 29). Absent: drooling, trismus, muffled voice, lacer ation Teeth exam: Present: other (Multiple missing teeth poor dentition) Throat exam: normal inspection. negative: tonsillar erythema, tonsillomegaly, tonsillar exudate, R peritonsillar mass, L peritonsillar mass Neck exam: Present: normal inspection, full ROM Respiratory exam: Present: normal lung sounds bilaterally. Absent: respiratory distress, wheezes, rales, rhonchi, stridor, chest wall tenderness, accessory muscle use Cardiovascular Exam: Present: regular rate GI/Abdominal exam: Present: soft, normal bowel sounds. Absent: distended, te nderness Back exam: Present: normal inspection, full ROM. Absent: tenderness, CVA tenderness (R), CVA tenderness (L), rash noted Neurological exam: Present: alert, oriented X3 Psychiatric exam: Present: normal affect, normal mood Skin exam: Present: warm, dry, intact, normal color. Absent: rash Course Vital Signs 01/03/22 01/03/22 11:12 13:03 Temperature 97.8 F 98.9 F Pulse Rate 69 61 Respiratory 18 18 Rate Blood Pressure 116/56 108/48 O2 Sat by Pulse 99 92 L Oximetry Medical Decision Making - Medical Decision Making Well-appearing 66-year-old female, ambulatory with complaints of bleeding the right lower gumline since yesterday and intermittent. Patient does take Plavix and aspirin daily. Platelet count is 249, hemoglobin and hematocrit are stable. There is evidence of leukocytosis which is consistent with the patient's poor dentition. She'll be prescribed antibiotics and directed to follow up with her dentist this week. Bleeding was controlled controlled with pressure. TXA topically was applied to the site of tooth site #29, bleeding resolved. She was given a dose of antibiotics in the emergency room. She denies any pain. Case discussed with Dr. Tuttle. Patient is agreeable to this plan of care. She was instructed to return to the emergency room with any new or concerning symptoms or abnormal bleeding. - Lab Data Result diagrams: 01/03/22 11:43 Lab Results 01/03/22 01/03/22 Range/Units 11:43 11:43 WBC 18.8 H (3.8-10.6) k/uL RBC 3.53 L (3.80-5.40) m/uL Hgb 11.7 (11.4-16.0) gm/dL Hct 36.0 (34.0-46.0) % MCV 101.9 H (80.0-100.0) fL MCH 33.2 (25.0-35.0) pg MCHC 32.5 (31.0-37.0) g/dL RDW 13.1 (11.5-15.5) % Plt Count 249 (150-450) k/uL MPV 9.0 Neutrophils % 79 % Lymphocytes % 15 % Monocytes % 3 % Eosinophils % 1 % Basophils % 1 % Neutrophils # 14.8 H (1.3-7.7) k/uL Lymphocytes # 2.9 (1.0-4.8) k/uL Monocytes # 0.6 (0-1.0) k/uL Eosinophils # 0.2 (0-0.7) k/uL Basophils # 0.1 (0-0.2) k/uL Macrocytosis Slight PT 11.4 (9.0-12.0) sec INR 1.1 (<1.2) Disposition Clinical Impression: Dental abscess, Mouth bleeding Disposition: HOME SELF-CARE Condition: Good Additional Instructions: Do not take the Plavix and aspirin tomorrow January 04. You can resume this medication on January 05. Take antibiotics as prescribed and follow-up with a dentist as soon as possible. Irrigate your mouth with salt water 4 times a day. Prescriptions: Clindamycin [Cleocin] 450 mg PO Q8H 10 Days #30 cap Is patient prescribed a controlled substance at d/c from ED?: No Referrals: Rajni Davalos MD [Primary Care Provider] - 1-2 days Time of Disposition: 13:00
[2022-01-03 11:56] LABS: Basophils # (A) 0.1 k/uL (0-0.2); Basophils % (A) 1 %; Eosinophils # (A) 0.2 k/uL (0-0.7); Eosinophils % (A) 1 %; HGB 11.7 gm/dL (11.4-16.0); Lymphocytes # (A) 2.9 k/uL (1.0-4.8); Lymphocytes % (A) 15 %; MCH 33.2 pg (25.0-35.0); MCHC 32.5 g/dL (31.0-37.0); MCV 101.9 fL (80.0-100.0); Macrocytosis Slight; Monocytes # (A) 0.6 k/uL (0-1.0); Monocytes % (A) 3 %; Neutrophils # (A) 14.8 k/uL (1.3-7.7); Neutrophils % (A) 79 %; Platelet Count 249 k/uL (150-450); RBC 3.53 m/uL (3.80-5.40); RDW 13.1 % (11.5-15.5); WBC 18.8 k/uL (3.8-10.6)
[2022-01-03 12:02] LABS: INR 1.1 (<1.2); Prothrombin Time 11.4 sec (9.0-12.0)
[2022-01-03] MEDS ORDERED: TRANEXAMIC ACID 1,000 MG/10 ML VIAL MISCELLANE ONE (12:06)
[2022-01-03] MEDS ORDERED: CLINDAMYCIN 150 MG CAP PO STA (12:51)
[2022-01-03 13:04] VITALS: BP 108/48; PULSE 61; TEMP 98.9
== END 2022-01-03 13:06 | disposition home or self-care (01) ==
LOC: EC 11:08
DX: K04.7 Periapical abscess without sinus (principal); I10 Essential (primary) hypertension; E78.5 Hyperlipidemia, unspecified; K21.9 Gastro-esophageal reflux disease without esophagitis; M19.90 Unspecified osteoarthritis, unspecified site; M10.9 Gout, unspecified; F32.A Depression, unspecified; F12.90 Cannabis use, unspecified, uncomplicated; Z87.891 Personal history of nicotine dependence; Z79.82 Long term (current) use of aspirin; Z79.02 Long term (current) use of antithrombotics/antiplatelets; Z79.899 Other long term (current) drug therapy
CPT/HCPCS: 36415; 85025; 85610; 99283

== ENCOUNTER → 2022-06-24 | Outpatient (CLI) | payer MEDICARE, OTHER ==
[2022-06-24 15:32] LABS: Partial Thromboplastin Time 24.1 sec (22.0-30.0)
[2022-06-24 15:58] LABS: Appearance,Urine Clear (Clear); Bilirubin,Urine Negative (Negative); Blood,Urine Negative (Negative); Color,Urine Yellow; Glucose,Urine (UA) Negative (Negative); Ketones,Urine Negative (Negative); Leukocyte Esterase,Urine Small (Negative); Mucus,Urine Rare /hpf; Nitrite,Urine Negative (Negative); PH, Urine 6.5 (5.0-8.0); Protein,Urine Trace (Negative); RBC,Urine 3 /hpf (0-5); Specific Gravity,Urine 1.027 (1.001-1.035); Squamous Epithelial Cell,Urine 3 /hpf (0-4); WBC,Urine 4 /hpf (0-5)
[2022-06-24 22:51] LABS: Basophils # (A) 0.06 X 10*3/uL (0.00-0.10); Basophils % (A) 0.6 %; Eosinophils # (A) 0.11 X 10*3/uL (0.04-0.35); Eosinophils % (A) 1.1 %; HCT 37.2 % (37.2-46.3); HGB 12.2 g/dL (12.0-15.0); Immature Grans, Automated 0.2 %; Lymphocytes # (A) 3.65 X 10*3/uL (0.90-5.00); Lymphocytes % (A) 37.5 %; MCH 32.4 pg (27.0-32.0); MCHC 32.8 g/dL (32.0-37.0); MCV 98.9 fL (80.0-97.0); Mean Platelet Volume 11.1 fL (9.5-12.2); Monocytes % (A) 8.2 %; NRBC Per 100 WBC 0 /100 WBCS (0.0-0.0); Neutrophils # (A) 5.09 X 10*3/uL (1.80-7.70); Neutrophils % (A) 52.4 %; Platelet Count 225 X 10*3/uL (140-440); RBC 3.76 X 10*6/uL (4.10-5.20); RDW 13.5 % (11.5-14.5); WBC 9.73 X 10*3/uL (4.50-10.00)
[2022-06-24 22:59] LABS: African American GFR (CKD) 67.7 (60.0-200.0); Albumin 4.3 g/dL (3.8-4.9); Albumin/Globulin Ratio 2.11 (1.60-3.17); Anion Gap 10.2 mmol/L (10.00-18.00); BUN/Creat Ratio 15.05 Ratio (12.00-20.00); Blood Urea Nitrogen 15.2 mg/dL (9.0-27.0); Calcium 9.3 mg/dL (8.7-10.3); Carbon Dioxide 26.9 mmol/L (20.0-27.5); Globulin 2.1 g/dL (1.6-3.3); Non-African American GFR(CKD) 58.4 (60.0-200.0); Potassium 4.6 mmol/L (3.5-5.5); Prealbumin 24.3 mg/dL (18.0-42.0); Total Bilirubin 0.2 mg/dL (0.30-1.20); Total Protein 6.4 g/dL (6.2-8.2)
== END | disposition home or self-care (01) ==
LOC: LABWHC1 14:37
PROVIDERS: ATTEND Neurological Surgery
DX: I67.1 Cerebral aneurysm, nonruptured (principal)
CPT/HCPCS: 36415; 80053; 81001; 83036; 84134; 85025; 85610; 85730

== ENCOUNTER → 2023-10-25 | Outpatient (CLI) | payer MEDICARE, OTHER ==
[2023-10-25 14:11] LABS: African American GFR (CKD) 88 (>60 ml/min/1.73 sqM); Blood Urea Nitrogen 14 mg/dL (7-17); Non-African American GFR(CKD) 77 (>60 ml/min/1.73 sqM)
--- NOTE | 2023-10-25 15:25 | CT ---
EXAMINATION TYPE: CT angio neck DATE OF EXAM: 10/25/2023 HISTORY: Rt side carotid stenosis, hx of strokes. COMPARISON: Prior CT neck March 18, 2018 CT DLP: 262 mGycm. Automated Exposure Control for Dose Reduction was Utilized. TECHNIQUE: CTA scan of the head and neck is performed with IV Contrast, patient injected with 100 ml mL of Isovue 370, axial images are obtained, coronal and sagittal reformatted images are reviewed. 3 D reconstructed images are created on an independent workstation and reviewed. FINDINGS: Carotid/Vascular Structures: For vessel origin from the aortic arch which is normal variant is redemo nstrated. No significant plaque or stenosis at this level. Moderate mixed plaque right carotid bulb e xtends into proximal internal carotid artery . Just past this point there is complete occlusion with nonvisualized right internal carotid artery with some reconstitution near the level of the [place] from collateral vessels. There is persistent metallic stent in the distal left common carotid artery through the carotid bulb into the left internal carotid artery. More prominent noncalcified pl aque is now identified causing greater stenosis down to 1.8 mm axial image 43 reconstitution up to 5. 1 mm superior to this axial image 35. Posterior circulation shows dominant left vertebral artery is p atent to the basilar junction. There is artifact from aneurysm clip in the proximal basilar artery re ally demonstrated. Visualized portion of sam[place] is grossly unremarkable. Other: Possible new rim enhancing 8mm left thyroid lesion image 61 upper pole level. Consider thyroid ultrasound to further evaluate. Moderate emphysematous changes in the upper lungs is now present. IMPRESSION: Increasing intraluminal noncalcified plaque or thrombus in the long segment left carotid stent. The lumen Diameter is now narrowed to approximately 70%. Advise endovascular surgical referral to further evaluate and/or treat with catheter angiogram and/or possible angioplasty. Complete occlu raymon of the right internal carotid artery is redemonstrated. NASCET criteria was used in interpretation of this exam?
== END | disposition home or self-care (01) ==
LOC: RADCTMAIN 13:29
PROVIDERS: ATTEND Internal Medicine Interventional Cardiology
DX: I65.23 Occlusion and stenosis of bilateral carotid arteries (principal)
CPT/HCPCS: 82565; 84520; 70498; 36415; Q9967

== ENCOUNTER → 2023-11-08 | Outpatient (CLI) | payer MEDICARE, OTHER | END | disposition home or self-care (01) | LOC: RADCTMAIN 17:26 | PROVIDERS: ATTEND Family Medicine | DX: Z53.9 Procedure and treatment not carried out, unspecified reason (principal) ==

== ENCOUNTER → 2023-11-24 | Outpatient (CLI) | payer MEDICARE, OTHER ==
--- NOTE | 2023-12-01 18:38 | CT ---
EXAMINATION TYPE: CT abdomen pelvis wo con CT DLP: 199.7 mGycm, Automated exposure control for dose reduction was used. DATE OF EXAM: 11/24/2023 2:16 PM COMPARISON: CLINICAL INDICATION:Female, 68 years old with history of N95.0 POSTMENOPAUSAL BLEEDING/ raspberry; va ginal bleeding TECHNIQUE: Axial CT of the abdomen and pelvis. Sagittal and coronal reformats were created on a [employer] workstation. Contrast used: mL of , (none if empty) Oral contrast used: with Oral Contrast (none if empty) FINDINGS: Exam is limited without IV contrast. Lack of body wall and intraperitoneal fat also limits intrinsic contrast. LOWER CHEST: Heart size upper normal. Lung bases show no infiltrate or pleural effusion. Mild emphyse matous changes. ABDOMEN LIVER: Couple small left and right hepatic lobe hypodensities, too small to characterize but likely c ysts or hemangiomas in absence of a cancer history. GALLBLADDER AND BILE DUCTS: Unremarkable gallbladder. No biliary ductal dilatation. PANCREAS: Not well-seen grossly unremarkable. SPLEEN: Unremarkable. ADRENAL GLANDS: Difficult to discretely identify, no adrenal mass is suggested.. KIDNEYS AND URETERS: Left kidney appears moderately atrophic. No evidence of renal calculi or hydrone phrosis. PELVIS BLADDER: Grossly unremarkable as seen. Its superior aspect is mildly indented by the uterine process. REPRODUCTIVE: Uterus appears present and anteverted. There is a relatively low-attenuation masslike lesion which appears centered within the endometrial cavity of the body and fundus, axially measuring 5 x 4.7 cm and extends 4 cm craniocaudally. The myometrium appears thinned and stretched around this , if not invaded. Ovaries are not clearly seen. There is no suggestion of adnexal mass. ABDOMEN & PELVIS STOMACH AND BOWEL: Contrast traverses the stomach and small bowel loops without evidence of obstructi on. Some segments are nondistended and not well assessed. Contrast reaches about half way through the colon, intermixed with moderate stool. There are likely some sigmoid region diverticuli without sugg estion of diverticulitis by this exam. The appendix is not readily identified but no focal inflammato ry process is seen in the pericecal region. PERITONEUM/RETROPERITONEUM: No evidence of pneumoperitoneum or free fluid. VASCULATURE: Severe atherosclerotic calcifications are present throughout the abdominal aorta and its branches. No AAA is suggested. In the infrarenal aorta there is heavy calcification which seems to c ross through most of the lumen, suspicious for significant stenosis or possibly occlusion. Distally a t the bifurcation and throughout the iliac arteries are additional calcifications. Vessels otherwise not well evaluated without contrast. LYMPH NODES: No gross evidence for lymphadenopathy, in the limitations of the exam. SOFT TISSUE/ABDOMINAL WALL: Appears somewhat cachectic. Nonspecific mild soft tissue thickening noted in the region of the umbilicus. MUSCULOSKELETAL: Generalized osteopenia. No acute bony abnormality or destructive lesion. There is mi ld to moderate degenerative change throughout the visualized spine and mild to moderate scoliotic cur ve towards the right centered at L1-L2. IMPRESSION: 1. Limited noncontrast study. 2. Masslike low-attenuation lesion within the uterus, appears centered within the body and fundus. G iven the setting, this is highly concerning for endometrial carcinoma unless proven otherwise. 3. No evidence to suggest abdominal or pelvic metastatic disease, in the limitations of the exam. 4. A couple of small hypodense liver lesions are too small to characterize but statistically most li kj cysts or hemangiomas. These can be reassessed on future follow-up imaging. 5. Other chronic and likely incidental findings, as described above.
== END | disposition home or self-care (01) ==
LOC: RADCTMAIN 12:24
PROVIDERS: ATTEND Family Medicine
DX: N95.0 Postmenopausal bleeding (principal); K76.9 Liver disease, unspecified; N83.8 Other noninflammatory disorders of ovary, fallopian tube and broad ligament
CPT/HCPCS: 74176